=== PATIENT | male | born 1965 | race Caucasian/White ===

== ENCOUNTER 2017-12-22 18:04 | Inpatient (IN) ==
--- NOTE | 2017-12-22 19:19 | Emergency Department Note ---
Disposition Clinical Impression: Peripheral arterial disease Foot ulcer, left Qualifiers: Non-pressure ulcer stage: unspecified non-pressure ulcer stage Qualified Code(s ): L97.529 - Non-pressure chronic ulcer of other part of left foot with unspecified severity Foot ulcer, right Qualifiers: Non-pressure ulcer stage: unspecified non-pressure ulcer stage Qualified Code(s ): L97.519 - Non-pressure chronic ulcer of other part of right foot with unspecified severity Disposition: Admitted As Inpatient Condition: Fair Referrals: Claude Lopez PAC [Primary Care Provider] - Forms: ED Satisfaction Letter Time of Disposition: 20:12 Extremity Problem HPI - General Chief complaint: ED Extremity Problem,Nontraumatic Stated complaint: "blood clots in my legs, rotting my feet" Time Seen by Provider: 12/22/17 19:10 Source: patient Mode of arrival: ambulatory Limitations: no limitations Nursing Notes Reviewed: Yes Vital Signs Reviewed: Yes - History of Present Illness HPI Narrative: Patient notes a recent diagnosis of peripheral arterial disease and gangrenous changes to his bilateral lower extremities. He was recently admitted to [facility] and had a vascular workup. He was referred to follow-up as an outpatient with wound care and to potentially go to [place] for vascular intervention. He denies new symptoms. He states he has a history of diabetes, hypertension, peripheral vascular disease, tobacco use. Pt Subjective Complaint: extremity pain, extremity swelling Pain Scale: 10 Quality: aching Improves with: nothing Worsens with: weight bearing, palpation Associated symptoms: Reports: denies other symptoms - Related Data Home Medications Medication Instructions Recorded Confirmed Atorvastatin Calcium [Lipitor] 80 mg PO HS 12/22/17 12/22/17 Dapagliflozin Propanediol [Farxiga] 5 mg PO DAILY 12/22/17 12/22/17 Furosemide [Lasix] 40 mg PO DAILY 12/22/17 12/22/17 Gabapentin [Neurontin] 800 mg PO TID 12/22/17 12/22/17 Insulin ASPART [Novolog Flexpen] 0 - 19 units SQ TIDWM 12/22/17 12/22/17 Insulin Glargine,Hum.rec.anlog 50 units SQ HS 12/22/17 12/22/17 [Lantus Solostar] Lisinopril [Zestril] 5 mg PO DAILY 12/22/17 12/22/17 Metoprolol Succinate [Toprol Xl] 50 mg PO DAILY 12/22/17 12/22/17 OxyCODONE/APAP 7.5/325 [Percocet 1 tab PO QID PRN 12/22/17 12/22/17 7.5/325 MG] clonazePAM [Klonopin] 1 mg PO TID PRN 12/22/17 12/22/17 Allergies Allergy/AdvReac Type Severity Reaction Status Date / Time hydrocodone AdvReac Itching Verified 12/22/17 20:27 pregabalin [From Lyrica] AdvReac Itching Verified 12/22/17 20:27 All systems ED: reviewed and negative except as stated. Constitutional: Reports: as per HPI Eyes: Reports: as per HPI ENT ED: Reports: as per HPI Cardiovascular: Reports: as per HPI Respiratory: Reports: as per HPI Gastrointestinal: Reports: as per HPI Genitourinary: Reports: as per HPI Musculoskeletal: Reports: other (Bilateral lower extremity pain) Integumentary: Reports: other (Bilateral lower extremity ulceration) Neurological: Reports: as per HPI Psychiatric: Reports: as per HPI Endocrine: Reports: as per HPI Hematological/Lymphatic: Reports: as per HPI Allergic/Immunologic: Reports: as per HPI Past Medical History - Past Medical History Source: patient Medical history: Reports: atrial fibrillation, CHF, diabetes, hyperlipidemia, hypertension, other Surgical history: Reports: other Psychiatric history: Reports: anxiety - Social History Smoking Status: Current every day smoker Smokeless Tobacco Status: No Alcohol use: Reports: occasionally Drug use: Reports: none, other Physical Exam - General Limitations: no limitations General appearance: alert - Head Head exam: atraumatic - Eye Eye exam: Present: normal appearance - ENT ENT exam: normal exam - Neck Neck exam: Present: normal inspection, full ROM - Chest Chest inspection: Present: normal inspection, symmetric chest wall rise - Respiratory Respiratory exam: Present: normal lung sounds bilaterally - Cardiovascular Cardiovascular exam: Present: regular rate, normal rhythm, normal heart sounds - Rectal Exam Rectal exam: Present: deferred - Expanded Lower Extremity Exam Upper leg exam: Present: normal inspection Knee exam: Present: normal inspection Lower leg exam: Present: normal inspection Ankle exam: Present: normal inspection Foot/toe exam: Present: other (Right foot swollen with hyperemia. Superficial ulceration which is dry and tenting overlying eschar over the lateral aspect of his foot. Similar ulceration to the posterior lateral aspect of the right heel. Both feet warm. Right foot with remote partial amputation) - Neurological Exam Neurological exam: Present: alert, oriented X3, CN II-XII intact - Psychiatric Psychiatric exam: Present: normal affect, normal mood - Skin Skin exam: Present: warm, dry Course Course Narrative: Patient presents with bilateral foot ulcerations. He has a recent diagnosis of peripheral arterial disease. I will attempt to obtain medical records from his most recent admission to [facility]. He will likely require admission for vascular surgery consultation and/or podiatry evaluation - Reevaluation(s) Reevaluation #1: Medical records from [place] obtained and reviewed. The patient is a 50-99% diameter stenosis of the proximal right deep femoral artery and right mid superficial femoral artery with severe occlusive disease and a right ankle brachial index of 0.48. He also has segmental occlusion of the left mid to distal left superficial femoral artery with moderate occlusive disease and an ankle-brachial index of 0.60. Reevaluation #2: Dr. Walker accepts admisison. Requests IV heparin - Consultations Consultation #1: Call placed to vascular surgery on-call. Case discussed with Dr. Yee who agrees to that with the patient consultation after admission Vital Signs Temperature 98 F 12/22/17 18:15 Pulse Rate 95 12/22/17 18:15 Respiratory Rate 20 12/22/17 18:15 Blood Pressure 105/55 12/22/17 18:15 O2 Sat by Pulse Oximetry 96 12/22/17 18:15 Temperature 98 F 12/22/17 18:15 Pulse Rate 95 12/22/17 18:15 Respiratory Rate 20 12/22/17 18:15 Blood Pressure 105/55 12/22/17 18:15 O2 Sat by Pulse Oximetry 96 12/22/17 18:15 Oxygen Delivery Oxygen Delivery Room Air Extremity Problem, Nontraumati - Medical Records Medical records reviewed: Yes I reviewed the patient's medical records. - Lab Data Lab results reviewed: Yes I reviewed the patient's lab results. Result diagrams: 12/22/17 19:19 12/22/17 19:19 Lab Results 12/22/17 12/22/17 12/22/17 Range/Units 19:19 19:19 19:19 WBC 12.1 H (4.3-11.1) K/mcL RBC 3.86 L (4.19-5.50) M/mcL Hgb 11.9 L (12.9-16.9) g/dL Hct 35.5 L (37.5-50.1) % MCV 92.0 (83.0-100.0) fL MCH 30.8 (28.0-33.3) pg MCHC 33.5 (31.6-35.5) g/dL RDW 13.2 (11.5-14.5) % Plt Count 248 (140-400) K/mcL MPV 10.9 (9.4-12.4) fL Immature Gran % 0.6 (0-4) % Seg Neutrophils % 75.9 % Lymphocytes % 14.7 % Monocytes % 7.0 % Eosinophils % 1.5 % Basophils % 0.3 % Neutrophils # 9.2 H (1.6-8.9) K/mcL Lymphocytes # 1.8 (0.6-4.6) K/mcL Monocytes # 0.9 (0.0-1.3) K/mcL Eosinophils # 0.2 (0.0-0.6) K/mcL Basophils # 0.0 (0.0-0.2) K/mcL PT 11.7 (9.4-12.1) Seconds INR 1.1 APTT 37.1 H (26.0-36.0) Seconds Sodium 136 (136-145) mEq/L Potassium 3.9 (3.5-5.1) mEq/L Chloride 97 L (98-107) mEq/L Carbon Dioxide 29 (23-29) mEq/L BUN 23 H (6-20) mg/dL Creatinine 0.88 (0.70-1.30) mg/dL Est GFR ( Amer) > 60 (> 60) Est GFR (Non-Af Amer) > 60 (> 60) BUN/Creatinine Ratio 26 (6-26) Glucose 223 H (70-105) mg/dL Calculated Osmolality 293 (280-300) Calcium 9.1 (8.6-10.3) mg/dL Total Bilirubin 0.3 (0.3-1.0) mg/dL AST 15 (13-39) Units/L ALT 14 (7-52) Units/L Alkaline Phosphatase 153 H (34-104) Units/L Serum Total Protein 7.2 (6.4-8.9) g/dL Albumin 4.1 (3.5-5.7) g/dL Globulin 3.1 (2.4-3.5) g/dL Albumin/Globulin Ratio 1.3 (1.1-2.2) Antibody Screen 12/22/17 Range/Units 19:19 WBC (4.3-11.1) K/mcL RBC (4.19-5.50) M/mcL Hgb (12.9-16.9) g/dL Hct (37.5-50.1) % MCV (83.0-100.0) fL MCH (28.0-33.3) pg MCHC (31.6-35.5) g/dL RDW (11.5-14.5) % Plt Count (140-400) K/mcL MPV (9.4-12.4) fL Immature Gran % (0-4) % Seg Neutrophils % % Lymphocytes % % Monocytes % % Eosinophils % % Basophils % % Neutrophils # (1.6-8.9) K/mcL Lymphocytes # (0.6-4.6) K/mcL Monocytes # (0.0-1.3) K/mcL Eosinophils # (0.0-0.6) K/mcL Basophils # (0.0-0.2) K/mcL PT (9.4-12.1) Seconds INR APTT (26.0-36.0) Seconds Sodium (136-145) mEq/L Potassium (3.5-5.1) mEq/L Chloride (98-107) mEq/L Carbon Dioxide (23-29) mEq/L BUN (6-20) mg/dL Creatinine (0.70-1.30) mg/dL Est GFR ( Amer) (> 60) Est GFR (Non-Af Amer) (> 60) BUN/Creatinine Ratio (6-26) Glucose (70-105) mg/dL Calculated Osmolality (280-300) Calcium (8.6-10.3) mg/dL Total Bilirubin (0.3-1.0) mg/dL AST (13-39) Units/L ALT (7-52) Units/L Alkaline Phosphatase (34-104) Units/L Serum Total Protein (6.4-8.9) g/dL Albumin (3.5-5.7) g/dL Globulin (2.4-3.5) g/dL Albumin/Globulin Ratio (1.1-2.2) Antibody Screen NEGATIVE - Radiology Data Radiology results reviewed: Yes I reviewed the patient's radiology results. - EKG Data EKG attestation: Yes I reviewed and interpreted this EKG. EKG results narrative: History rhythm rate 87 by mouth 147 QRS 124 QT/QTC 385/429 Critical Care Time Critical Care Time: Yes Total Critical Care Time: 30 Attestation: The high probability of a clinically significant, sudden or life threatening deterioration of the [] system(s) required my full and direct attention, intervention and personal management. The aggregate critical care time was [] minutes. This time is in addition to time spent performing reported procedures but includes the following: [] Data Review and interpretation [] Patient assessment and monitoring of vital signs [] Documentation [] Medication orders and management
[2017-12-22 20:04] LABS: Basophils % 0.3 %; Eosinophils # 0.2 K/mcL (0.0-0.6); Eosinophils % 1.5 %; Hematocrit 35.5 % (37.5-50.1); Hemoglobin 11.9 g/dL (12.9-16.9); Immature Granulocytes % 0.6 % (0-4); Lymphocytes # 1.8 K/mcL (0.6-4.6); Lymphocytes % 14.7 %; Mean Corpuscular HGB Conc 33.5 g/dL (31.6-35.5); Mean Corpuscular Hemoglobin 30.8 pg (28.0-33.3); Mean Platelet Volume 10.9 fL (9.4-12.4); Monocytes # 0.9 K/mcL (0.0-1.3); Neutrophils # 9.2 K/mcL (1.6-8.9); Platelet Count 248 K/mcL (140-400); Red Blood Count 3.86 M/mcL (4.19-5.50); Red Cell Distribution Width 13.2 % (11.5-14.5); Segmented Neutrophils % 75.9 %
[2017-12-22 20:13] LABS: INR 1.1; Prothrombin Time 11.7 Seconds (9.4-12.1)
[2017-12-22 20:14] LABS: Alanine Aminotransferase 14 Units/L (7-52); Albumin 4.1 g/dL (3.5-5.7); Albumin/Globulin Ratio 1.3 (1.1-2.2); Alkaline Phosphatase 153 Units/L (34-104); Aspartate Amino Transferase 15 Units/L (13-39); BUN/Creatinine Ratio 26 (6-26); Bilirubin,Total 0.3 mg/dL (0.3-1.0); Blood Urea Nitrogen 23 mg/dL (6-20); Calcium 9.1 mg/dL (8.6-10.3); Carbon Dioxide 29 mEq/L (23-29); Chloride 97 mEq/L (98-107); Globulin 3.1 g/dL (2.4-3.5); Glucose 223 mg/dL (70-105); Osmolality,Calculated 293 (280-300); Potassium 3.9 mEq/L (3.5-5.1); Sodium 136 mEq/L (136-145); Total Protein 7.2 g/dL (6.4-8.9); eGFR For African Americans > 60 (> 60); eGFR For Non-African Americans > 60 (> 60)
[2017-12-22 20:15] LABS: Activated Partial Thrombo Time 37.1 Seconds (26.0-36.0)
[2017-12-22] MEDS ORDERED: Naloxone 0.4 MG/ML INJ IVP PRN (20:36)
[2017-12-22] MEDS ORDERED: *HR* Heparin 5,000 UNIT/ML VIAL IVP ONE (20:36)
[2017-12-22] MEDS ORDERED: *HR* Heparin 5,000 UNIT/ML VIAL IVP PRN ×2 (20:36)
[2017-12-22] MEDS ORDERED: Acetaminophen 325 MG TABLET PO PRN (20:36)
[2017-12-22] MEDS ORDERED: D5% in Water 1,000 ML IVC PRN (20:37)
[2017-12-22] MEDS ORDERED: *HR* Dextrose 50 % in Water (Syg) 50 ML SYRINGE IVP PRN (20:37)
[2017-12-22] MEDS ORDERED: Dextrose Gel 15 GM/37.5 ML TUBE PO PRN ×2 (20:37)
--- NOTE | 2017-12-22 20:43 | Internal Med History&Physical ---
Date of Encounter: 12/22/17 Time of Encounter: 20:38 Internal Medicine - H&P: HPI Chief complaint: Lower extremity pain Admitted From: Emergency Dept Plans for Post Hospital Care: Home History of present illness: Mr. Taylor is a 51 year old male with history of diabetes, hypertension, hyperlipidemia, tobacco abuse, A. fib not on anticoagulation and he is not aware , pacemaker/ICD which she tells me was placed because he "has cystic fibrosis and half of his heart has not grew", he follows up with cardiology, who presented to the ED with bilateral lower extremity gangrenous changes in pain. The patient apparently recently was admitted [facility] and discharged after he had a vascular workup. They could not provide vascular services and recommended that he follows up in the outpatient setting. He ended up in our facility. His records were sent to the ED which showed that he has 50-99% diameter stenosis of the proximal right deep femoral artery and right mid superficial femoral artery with severe occlusive disease and a right ankle brachial index of 0.48. He also has segmental occlusion of the left mid to distal left superficial femoral artery with moderate occlusive disease and ankle brachial index of 0.60. Vascular consult in the ED and recommended admission and that they will see him. They did not really make specific recommendations regarding heparinization of the patient. I have asked that he start a heparin drip. No fever, chills, nausea, vomiting, chest pain, shortness of breath, abdominal pain, diarrhea, constipation, urinary symptoms, or neurological symptoms. His workup in the ED showed leukocytosis of 12.1. Hemoglobin 11.9. A CMP was only remarkable for glucose of 223 and looking for status post mild elevated on 153 Past Med Surg Social Fam HX - Past Medical History Medical history: atrial fibrillation, CHF, diabetes, hyperlipidemia, hypertension, other Additional medical history: cystic fibrosis Psychiatric history: anxiety - Past Surgical History Surgical History: other Additional surgical history: right toes amputation - Social History Smoking Status: Current every day smoker Smokeless Tobacco Status: No Alcohol use: occasionally Drug use: none, other - Family History Mother Living Status: Hx Family Cardiac Disorders: Yes Hx Family Respiratory Disorders: Yes Hx Family Cancer: Yes Hx Family GI Disorders: No Hx Family Endocrine Disorder: Yes (Diabetes) Hx Family Neuromuscular Disorders: No Hx Family Neurologic Disorders: No Hx Family HEENT Disorders: No Hx Family Autoimmune Disorders: No Internal Medicine - H&P: Meds Atorvastatin Calcium [Lipitor] 80 mg PO HS 12/22/17 [History] Dapagliflozin Propanediol [Farxiga] 5 mg PO DAILY 12/22/17 [History] Furosemide [Lasix] 40 mg PO DAILY 12/22/17 [History] Gabapentin [Neurontin] 800 mg PO TID 12/22/17 [History] Insulin ASPART [Novolog Flexpen] 0 - 19 units SQ TIDWM 12/22/17 [History] Insulin Glargine,Hum.rec.anlog [Lantus Solostar] 50 units SQ HS 12/22/17 [ History] Lisinopril [Zestril] 5 mg PO DAILY 12/22/17 [History] Metoprolol Succinate [Toprol Xl] 50 mg PO DAILY 12/22/17 [History] OxyCODONE/APAP 7.5/325 [Percocet 7.5/325 MG] 1 tab PO QID PRN 12/22/17 [History] clonazePAM [Klonopin] 1 mg PO TID PRN 12/22/17 [History] 3 Allergy/AdvReac Type Severity Reaction Status Date / Time hydrocodone AdvReac Itching Verified 12/22/17 20:27 pregabalin [From Lyrica] AdvReac Itching Verified 12/22/17 20:27 All Systems PM: A 10-system review of systems was performed and is negative for pertinent findings except as documented above in the HPI. Review of systems: All systems reviewed are negative except as mentioned above - Constitutional Vitals: Temp Pulse Resp BP Pulse Ox 98 F 95 20 105/55 96 12/22/17 18:15 12/22/17 18:15 12/22/17 18:15 12/22/17 18:15 12/22/17 18:15 Exam: GEN: NAD HEENT: AT, NC, No cyanosis, oral mucosa is moist, No JVD Lymphatics: No lymphadenoapthy Eyes: Extrocular muscles intact, anicteric CVS:RRR. S1, S2, No m/r/g RESP: CTAB ABD: Soft, NT, ND, +BS EXT: No edema, right foot is following with erythema and superficial ulceration. He has an eschar on the lateral aspect of the foot. He also has similar findings on the posterior lateral aspect of the right heel. Right foot with partial amputation noted. NEURO: Nonfocal, CN II-XII intact, No focal motor or sensory deficits Psych: Cooperative, Not anxious or depressed Internal Med - H&P Results - Labs CBC & Chem 7: 12/22/17 19:19 12/22/17 19:19 Labs: Short CBC 12/22/17 Range/Units 19:19 WBC 12.1 H (4.3-11.1) K/mcL Hgb 11.9 L (12.9-16.9) g/dL Hct 35.5 L (37.5-50.1) % Plt Count 248 (140-400) K/mcL Neutrophils # 9.2 H (1.6-8.9) K/mcL BMP 12/22/17 19:19 Sodium 136 Potassium 3.9 Chloride 97 L Carbon Dioxide 29 BUN 23 H Creatinine 0.88 Glucose 223 H Calcium 9.1 Liver Function 12/22/17 Range/Units 19:19 Total Bilirubin 0.3 (0.3-1.0) mg/dL AST 15 (13-39) Units/L ALT 14 (7-52) Units/L Alkaline Phosphatase 153 H (34-104) Units/L Albumin 4.1 (3.5-5.7) g/dL - Impressions ITS Impressions Chest X-Ray 12/22/17 18:19 IMPRESSION: No acute process. D/ / Sharlene Cheng MD / Sharlene Cheng MD Interpreting Provider: Sharlene Cheng MD Foot X-Ray 12/22/17 19:20 IMPRESSION: 1. Plantar lateral ulceration of the forefoot at the level of the fifth MTP joint. 2. No radiographic evidence of osteomyelitis though given the adjacent soft tissue changes this cannot be excluded. D/ / 12/22/2017 20:32:25 Jj Rico MD / km Interpreting Provider: Jj Rico MD Foot X-Ray 12/22/17 19:20 IMPRESSION: 1. No acute osseous findings are identified. D/ / 12/22/2017 20:30:59 Alexandre Liao MD / km Interpreting Provider: Alexandre Liao MD - Assessment and plan (1) Ischemic foot ulcer due to atherosclerosis of [place] artery of limb Current Visit: Yes Status: Acute Assessment and plan: Ulcerations of her carotic with malodor. We will start patient on IV Vanco and Zosyn. Check blood cultures and lactic acid. (2) Peripheral arterial disease Current Visit: Yes Status: Acute Assessment and plan: Vascular is consulted. Check A1c and lipid panel. We will start patient on heparin drip. (3) Diabetes Current Visit: No Status: Acute Assessment and plan: We will place patient on his basal insulin and insulin scale. Check A1c. Qualifiers: Diabetes mellitus type: type 2 Diabetes mellitus group home insulin use: with terminal operator use Diabetes mellitus complication status: with circulatory complication Diabetes mellitus complication detail: with peripheral angiopathy with gangrene Qualified Code(s): E11.52 - Type 2 diabetes mellitus with diabetic peripheral angiopathy with gangrene (4) Hypertension Current Visit: Yes Status: Acute Assessment and plan: Hold antihypertensives for now as the patient is blood pressure is borderline for now. Qualifiers: Hypertension type: essential hypertension Qualified Code(s): I10 - Essential (primary) hypertension (5) Afib Current Visit: Yes Status: Acute Assessment and plan: Patient currently is on aspirin and beta anastacia. He is not on anticoagulation for unknown reason. He is on heparin drip. He the way for his peripheral artery disease Qualifiers: Atrial fibrillation type: paroxysmal Qualified Code(s): I48.0 - Paroxysmal atrial fibrillation (6) Tobacco abuse Current Visit: No Status: Acute Assessment and plan: Nicotine patch (7) DVT prophylaxis Current Visit: No Status: Acute Assessment and plan: Patient has been started on heparin drip - Time Spent With Patient Total time spent is greater than 50% in coordination of care (as documented) at patient's floor/unit and/or counseling patient:
[2017-12-22] MEDS: Heparin 25,000 UNIT/500 ML D5W 25,000 UNIT/500 ML BAG IVC SCH (21:20)
[2017-12-23] MEDS: Insulin DETEMIR 100 UNIT/ML X5UNITS SQ SCH ×2 (00:01→20:06)
[2017-12-23] MEDS: Insulin LISPRO 300 UNITS/3 ML VIAL SQ SCH ×5 (00:02→20:10)
[2017-12-23] MEDS: Nicotine 21 MG PATCH.TD24 TD SCH ×2 (00:06→08:24)
[2017-12-23] MEDS: Piperacillin/Tazobactam 3.375 GM in 0.9 % Sodium Chloride Mini Bag 100 ML IVPB SCH ×3 (00:52→15:50)
[2017-12-23 03:41] LABS: Basophils % 0.2 %; Eosinophils # 0.2 K/mcL (0.0-0.6); Eosinophils % 1.9 %; Hematocrit 27.3 % (37.5-50.1); Hemoglobin 9.1 g/dL (12.9-16.9); Immature Granulocytes % 0.7 % (0-4); Lymphocytes # 1.8 K/mcL (0.6-4.6); Lymphocytes % 21.2 %; Mean Corpuscular HGB Conc 33.3 g/dL (31.6-35.5); Mean Corpuscular Hemoglobin 30.8 pg (28.0-33.3); Mean Corpuscular Volume 92.5 fL (83.0-100.0); Monocytes # 0.7 K/mcL (0.0-1.3); Monocytes % 8.6 %; Neutrophils # 5.6 K/mcL (1.6-8.9); Platelet Count 191 K/mcL (140-400); Red Blood Count 2.95 M/mcL (4.19-5.50); Segmented Neutrophils % 67.4 %
[2017-12-23 03:54] LABS: BUN/Creatinine Ratio 30 (6-26); Blood Urea Nitrogen 17 mg/dL (6-20); Calcium 6.9 mg/dL (8.6-10.3); Carbon Dioxide 22 mEq/L (23-29); Chloride 109 mEq/L (98-107); Chol/HDL Ratio 3.3 (0-4.9); Cholesterol 70 mg/dL (< 200); Glucose 177 mg/dL (70-105); HDL Cholesterol 21 mg/dL (40-59); LDL Cholesterol,Calculated 29 mg/dL (0-99); Magnesium 1.5 mg/dL (1.6-2.6); Osmolality,Calculated 296 (280-300); Sodium 140 mEq/L (136-145); Triglycerides 101 mg/dL (< 150); eGFR For African Americans > 60 (> 60); eGFR For Non-African Americans > 60 (> 60)
[2017-12-23 04:05] LABS: Thyroid Stimulating Hormone 1.266 mcIU/mL (0.340-5.600)
[2017-12-23] MEDS: *HR* OxyCODONE/APAP 7.5/325 TABLET PO PRN ×2 (04:19→15:23)
[2017-12-23 08:15] LABS: Estimated Average Glucose 255 mg/dl; Hemoglobin A1C 10.5 %
[2017-12-23] MEDS: Gabapentin 400 MG CAPSULE PO SCH ×4 (08:24→20:05)
[2017-12-23] MEDS: Furosemide 40 MG TABLET PO SCH (08:24)
--- NOTE | 2017-12-23 09:03 | Vascular/Endovasc Consult Note ---
Date of Encounter: 12/23/17 Time of Encounter: 09:01 Assessment and Plan (1) Diabetes Current Visit: No Status: Chronic Patient has chronic diabetes which appears to be poorly controlled. Qualifiers: Diabetes mellitus type: type 2 Diabetes mellitus intermediate insulin use: with intermediate use Diabetes mellitus complication status: with circulatory complication Diabetes mellitus complication detail: with peripheral angiopathy with gangrene Qualified Code(s): E11.52 - Type 2 diabetes mellitus with diabetic peripheral angiopathy with gangrene (2) Ischemic foot ulcer due to atherosclerosis of [place] artery of limb Current Visit: Yes Status: Chronic The patient has long-standing lower extremity vascular occlusive disease. Ankle brachial indexes proximally 0.6 bilaterally. Patient has full-thickness ulcerations of both feet. It is worse on the left side than on the right. I recommended that the patient undergo angiography and possible endovascular intervention. Patient is worse he may require bilateral interventions but the focus will be primarily on the left lower extremity at this time. My staff will make arrangements for the angiogram in the near future for either or Thursday of this week. The procedure was explained to the patient. All questions were answered. Patient agrees to proceed as recommended. - History of Present Illness Consult date: 12/23/17 Consult reason: Bilateral foot wounds and lower extremity ischemia Chief complaint: Bilateral foot wounds History of present illness: Mr. Taylor is a 51 year old male Who is seen on 3 . 's morning. He has rather complicated history. He has a known history of lower extremity vascular disease. He is status post a right transmetatarsal amputation by Dr. Palomino in the past. Somehow he had been admitted to [facility] via their wound clinic. He was going to be referred to [place] for further treatment. Apparently the patient left AMA and then came to the emergency room at [facility]. He then was admitted last night. The patient has ulcerations on the lateral aspect of his left foot and on the heel area of his right foot. It is unclear what his diabetic control has been but my impression is that it is poor. He has had noninvasive studies which show an ankle-brachial index of proximally 0.6 bilaterally. Because of the persistence of his wounds and his multiple risk factors vascular surgery was asked to see the patient. Past Med Surg Social Fam HX - Past Medical History Medical history: atrial fibrillation, CHF, diabetes, hyperlipidemia, hypertension, other Additional medical history: cystic fibrosis Psychiatric history: anxiety - Past Surgical History Surgical History: other (Right transmetatarsal amputation) Additional surgical history: right toes amputation - Social History Smoking Status: Current every day smoker Smokeless Tobacco Status: No Alcohol use: occasionally Drug use: none, other - Family History Mother Living Status: Hx Family Cardiac Disorders: Yes Hx Family Respiratory Disorders: Yes Hx Family Cancer: Yes Hx Family GI Disorders: No Hx Family Endocrine Disorder: Yes (Diabetes) Hx Family Neuromuscular Disorders: No Hx Family Neurologic Disorders: No Hx Family HEENT Disorders: No Hx Family Autoimmune Disorders: No Medications and Allergies Atorvastatin Calcium [Lipitor] 80 mg PO HS 12/22/17 [History] Dapagliflozin Propanediol [Farxiga] 5 mg PO DAILY 12/22/17 [History] Furosemide [Lasix] 40 mg PO DAILY 12/22/17 [History] Gabapentin [Neurontin] 800 mg PO TID 12/22/17 [History] Insulin ASPART [Novolog Flexpen] 0 - 19 units SQ TIDWM 12/22/17 [History] Insulin Glargine,Hum.rec.anlog [Lantus Solostar] 50 units SQ HS 12/22/17 [ History] Lisinopril [Zestril] 5 mg PO DAILY 12/22/17 [History] Metoprolol Succinate [Toprol Xl] 50 mg PO DAILY 12/22/17 [History] OxyCODONE/APAP 7.5/325 [Percocet 7.5/325 MG] 1 tab PO QID PRN 12/22/17 [History] clonazePAM [Klonopin] 1 mg PO TID PRN 12/22/17 [History] 3 Allergy/AdvReac Type Severity Reaction Status Date / Time hydrocodone AdvReac Itching Verified 12/22/17 20:27 pregabalin [From Lyrica] AdvReac Itching Verified 12/22/17 20:27 All Systems Review: The remainder of the systems were reviewed and are negative Exam Vital Signs, Last 4 Hours Temp Pulse Resp BP Pulse Ox 12/23/17 07:09 99.0 F 69 16 94/56 95 General: Present: Conversant, No Apparent Distress, Well developed, Well nourished HEENT: Present: Atraumatic, Normocephaly Neck: Absent: JVD, Lymphadenopathy, Left Carotid bruit, Right Carotid bruit, Midline deformity, Tracheal deviation Cardiac: Present: Reg Rate and Rhythm, Normal S1 and S2 Lungs: Present: Normal Breath Sounds Neuro: Present: Alert and responsive, No focal deficits noted, Cranial nerves grossly intact Abdomen: Present: Soft, Non-tender. Absent: Masses Vascular: Present: Pulse, absent (The patient has no palpable popliteal or pedal pulse on either side.) Skin: Present: Wound/ulcer(s) (The patient has eschar and ulcer formation on the lateral aspect of the left foot near the head of the fifth metatarsal. Patient has an ulceration on the medial aspect of the right heel. Both these areas have an odor to them. There is no gross pus or fluid drainage. There are no blood formations in the region of these wounds.) Consult Discharge Plan - Plan Referrals: Claude Lopez, PAC [Primary Care Provider] -
--- NOTE | 2017-12-23 17:28 | Internal Med Progress Note ---
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 Continue IV Vanco and Zosyn. Follow-up blood cultures and lactic acid. Continue heparin drip. Hemoglobin low today possibly hemodilution, recheck H&H now. Vascular Surg to do angiogram tomorrow. (2) Diabetes Current Visit: No Status: Chronic Assessment and plan: We will place patient on his basal insulin and insulin scale. Check A1c. 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 Check A1c and lipid panel. We will start patient on heparin drip. (6) Afib Current Visit: Yes Status: Acute Assessment and plan: Patient currently is on aspirin and beta anastacia, metoprolol. He is not on anticoagulation for unknown reason. He is on heparin drip. Qualifiers: Atrial fibrillation type: paroxysmal Qualified Code(s): I48.0 - Paroxysmal atrial fibrillation (7) Hypertension Current Visit: Yes Status: Acute Assessment and plan: Hold antihypertensives for now as the patient is blood pressure is borderline for now. Qualifiers: Hypertension type: essential hypertension Qualified Code(s): I10 - Essential (primary) hypertension - Time Spent With Patient Total time spent is greater than 50% in coordination of care (as documented) at patient's floor/unit and/or counseling patient: - Subjective Interval history: No complaints no acute events. - Constitutional Vitals: Temp Pulse Resp BP Pulse Ox 99.1 F 80 16 135/78 95 12/23/17 15:05 12/23/17 15:05 12/23/17 15:05 12/23/17 15:05 12/23/17 15:05 Exam: - Head Head exam: Present: atraumatic, normal inspection - Eye Eye exam: Present: EOMI, normal appearance, PERRL. Absent: scleral icterus Pupils: Present: normal accommodation - ENT ENT exam: Present: mucous membranes dry, normal exam, normal oropharynx - Neck Neck exam general surgery: Present: full ROM, supple. Absent: lymphadenopathy, tenderness, nuchal rigidity, thyromegaly - Expanded Neck Exam Neck exam: Absent: carotid bruit - Respiratory Respiratory exam: Present: CTAB. Absent: chest wall tenderness, rales, respiratory distress, rhonchi, wheezes - Cardiovascular Cardiovascular exam: Present: bradycardia (HR 48 on auscultation), +S1, +S2. Absent: diastolic murmur, systolic murmur - GI/Abdominal GI/Abdominal exam: Present: normal bowel sounds, soft. Absent: hepatomegaly, mass, splenomegaly, tenderness - Extremities Exam Extremities exam: Present: full ROM, normal capillary refill, warm, radial pulses palpable and symmetrical. Absent: calf tenderness, pedal edema, tenderness Right foot s/p partial foot amputation no toes. Lateral ulceration Left foot lateral ulceration no edema, no erythema - Back Exam Back exam: Present: normal inspection. Absent: CVA tenderness (L), CVA tenderness (R) - Neurological Exam Neurological exam: Present: alert, CN II-XII intact, oriented X3, no focal deficits - Psychiatric Psychiatric exam: Present: normal affect, normal mood - Skin Skin exam: Present: dry, warm. Absent: rash Internal Medicine: Result - Labs CBC & Chem 7: 12/23/17 02:52 12/23/17 02:52 Labs: Short CBC 12/23/17 Range/Units 02:52 WBC 8.4 (4.3-11.1) K/mcL Hgb 9.1 L D (12.9-16.9) g/dL Hct 27.3 L (37.5-50.1) % Plt Count 191 (140-400) K/mcL Neutrophils # 5.6 (1.6-8.9) K/mcL BMP 12/23/17 02:52 Sodium 140 Potassium 3.0 L Chloride 109 H Carbon Dioxide 22 L BUN 17 Creatinine 0.56 L Glucose 177 H Calcium 6.9 L - ABG Interpretation ABG results: PT/INR, D-dimer PT 11.7 Seconds (9.4-12.1) 12/22/17 19:19 Consult Discharge Plan - Plan Referrals: Claude Lopez, PAC [Primary Care Provider] -
[2017-12-23 17:40] LABS: Hematocrit 34.4 % (37.5-50.1)
[2017-12-23 17:41] LABS: Hemoglobin 11.4 g/dL (12.9-16.9)
[2017-12-23] MEDS: Heparin 25,000 UNIT/500 ML D5W 25,000 UNIT/500 ML BAG IVC SCH (17:45)
--- NOTE | 2017-12-23 19:36 | Electrocardiograph Report ---
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
[2017-12-23] MEDS: Sennosides/Docusate Sodium TABLET PO PRN (19:44)
[2017-12-23] MEDS: clonazePAM 1 MG TABLET PO PRN (19:44)
[2017-12-24] MEDS: Piperacillin/Tazobactam 3.375 GM in 0.9 % Sodium Chloride Mini Bag 100 ML IVPB SCH ×4 (02:15→23:35)
[2017-12-24 05:24] LABS: Basophils % 0.3 %; Eosinophils # 0.2 K/mcL (0.0-0.6); Eosinophils % 2.1 %; Hematocrit 31.5 % (37.5-50.1); Hemoglobin 10.5 g/dL (12.9-16.9); Immature Granulocytes % 0.8 % (0-4); Mean Corpuscular HGB Conc 33.3 g/dL (31.6-35.5); Mean Corpuscular Hemoglobin 30.5 pg (28.0-33.3); Mean Corpuscular Volume 91.6 fL (83.0-100.0); Mean Platelet Volume 10.3 fL (9.4-12.4); Monocytes # 0.8 K/mcL (0.0-1.3); Monocytes % 7.9 %; Neutrophils # 7.2 K/mcL (1.6-8.9); Platelet Count 234 K/mcL (140-400); Red Blood Count 3.44 M/mcL (4.19-5.50); Red Cell Distribution Width 12.9 % (11.5-14.5); Segmented Neutrophils % 69.9 %
[2017-12-24 05:44] LABS: BUN/Creatinine Ratio 22 (6-26); Blood Urea Nitrogen 16 mg/dL (6-20); Calcium 8.8 mg/dL (8.6-10.3); Carbon Dioxide 27 mEq/L (23-29); Chloride 105 mEq/L (98-107); Glucose 171 mg/dL (70-105); Osmolality,Calculated 289 (280-300); Potassium 4.4 mEq/L (3.5-5.1); Sodium 137 mEq/L (136-145); eGFR For African Americans > 60 (> 60); eGFR For Non-African Americans > 60 (> 60)
[2017-12-24] MEDS: *HR* OxyCODONE/APAP 7.5/325 TABLET PO PRN (07:53)
[2017-12-24] MEDS: Furosemide 40 MG TABLET PO SCH (07:54)
[2017-12-24] MEDS: Gabapentin 400 MG CAPSULE PO SCH ×3 (07:54→23:34)
[2017-12-24] MEDS: Metoprolol XL (24 HR) Succ 50 MG TAB.ER.24H PO SCH (07:54)
[2017-12-24] MEDS: Insulin LISPRO 300 UNITS/3 ML VIAL SQ SCH ×4 (07:55→23:37)
[2017-12-24] MEDS: Nicotine 21 MG PATCH.TD24 TD SCH (09:35)
[2017-12-24] MEDS ORDERED: *HR* Heparin 10,000 UNIT/10 ML VIAL ONE (11:52)
[2017-12-24] MEDS ORDERED: 0.9 % Sodium Chloride 2,000 ML ONE (11:53)
[2017-12-24] MEDS ORDERED: Heparin 1,000 UNITS/500 mL 500 ML ONE (11:53)
[2017-12-24] MEDS ORDERED: Isovue-300 200 mL Infus..BTL IV ONE (11:53)
--- NOTE | 2017-12-24 11:59 | Pre-Sedation Evaluation ---
Pre-sedation evaluation - Pre-sedation checklist Date of procedure: 12/24/17 Procedure: Angiogram Recent Vitals: Last Vital Signs Temp 97.6 F 12/24/17 11:09 Pulse 64 12/24/17 11:09 Resp 18 12/24/17 11:09 BP 116/49 12/24/17 11:09 Pulse Ox 97 12/24/17 11:09 H&P (including ROS) documented in medical record: Yes Previous reaction to sedatives/anesthetics: Yes; explain in comment Dietary Status: NPO after Midnight Dentition: dentures removed ASA Classification *see protocol: CLASS III-Severe systemic disease Plan of Care: Pt appropriate candidate for procedure/moderate/conscious sedation , Risks/benefits of procedure/sedation discussed w/ patient/family
--- NOTE | 2017-12-24 12:01 | Podiatry Consult Note ---
Date of Encounter: 12/24/17 Time of Encounter: 11:00 Assessment and Plan (1) Foot ulcer, left Current visit: Yes Status: Acute Necrotic ulceration to the lateral aspect of the fifth metatarsal head, left foot, malodorous. Per Vascular note : Noninvasive studies show an ankle-brachial index of proximally 0.6 bilaterally. Plan: Scheduled for an angiogram today with Dr. Trammell. Will follow up with patient once angiogram is completed. Will order wound care. Cleanse feet daily with mild soap and water, pat dry, apply betadine to ulcerations of both feet with dry sterile 4x4 gauze and kerlix daily. Continue to follow patient closely. Qualifiers: Non-pressure ulcer stage: unspecified non-pressure ulcer stage Qualified Code(s): L97.529 - Non-pressure chronic ulcer of other part of left foot with unspecified severity (2) Foot ulcer, right Current visit: Yes Status: Acute Necrotic ulceration to the lateral aspect of the right heel, malodorous, no erythema. Per Vascular note : Noninvasive studies show an ankle-brachial index of proximally 0.6 bilaterally. Plan: Scheduled for an angiogram today with Dr. Trammell. Will follow up with patient once angiogram is completed. Will order wound care. Cleanse feet daily with mild soap and water, pat dry, apply betadine to ulcerations of both feet with dry sterile 4x4 gauze and kerlix daily. Continue to follow patient closely. 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 Taylor is a 51 year old male admitted to [facility] for gangrenous changed in ulcerations to both feet. Patient has a medical history significant for diabetes mellitus, hypertension, hyperlipidemia, atrial fibrillation, pacemaker/ ICD. Patient has a surgical history significant for a transmetatarsal amputation of the right foot with adjacent tissue transfer with flap advancement medially on 02/28/[address] Palomino. 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 Patient was treated with 6 weeks of IV antibiotics in February of 2016. Patient states two months ago he had a blister on the lateral aspect of his left foot and he states he opened it up himself. Patient states his Reticle Printer referred him to the wound care clinic at [facility]. Patient states he has had home health for dressing changes on his feet. Patient states he was admitted to [facility] last week and while he was there the ulcers on his feet turned black. Spouse states [facility] did not have anyone to work on his feet and they wanted to refer him to [facility]. After reviewing records patient received a Vascular workup while at [facility] and was discharged and suppose to follow up as an outpatient. Patient presented to the Emergency Department two days ago with increased pain to both feet and concerns of odor from ulcerations. Patient was evaluated by Dr. Trammell yesterday and is scheduled for an angiogram today. Patient states he currently smokes two packs of cigarettes a day and states he has smoked for years. No c/o fever, chills, cp , sob or flu like symptoms. Past Med Surg Social Fam HX - Past Medical History Medical history: atrial fibrillation, CHF, diabetes, hyperlipidemia, hypertension, other Additional medical history: cystic fibrosis Psychiatric history: anxiety - Past Surgical History Surgical History: other (Right transmetatarsal amputation) Additional surgical history: right toes amputation - Social History Smoking Status: Current every day smoker Smokeless Tobacco Status: No Alcohol use: occasionally Drug use: none, other - Family History Mother Living Status: Hx Family Cardiac Disorders: Yes Hx Family Respiratory Disorders: Yes Hx Family Cancer: Yes Hx Family GI Disorders: No Hx Family Endocrine Disorder: Yes (Diabetes) Hx Family Neuromuscular Disorders: No Hx Family Neurologic Disorders: No Hx Family HEENT Disorders: No Hx Family Autoimmune Disorders: No Medications and Allergies Atorvastatin Calcium [Lipitor] 80 mg PO HS 12/22/17 [History] Dapagliflozin Propanediol [Farxiga] 5 mg PO DAILY 12/22/17 [History] Furosemide [Lasix] 40 mg PO DAILY 12/22/17 [History] Gabapentin [Neurontin] 800 mg PO TID 12/22/17 [History] Insulin ASPART [Novolog Flexpen] 0 - 19 units SQ TIDWM 12/22/17 [History] Insulin Glargine,Hum.rec.anlog [Lantus Solostar] 50 units SQ HS 12/22/17 [ History] Lisinopril [Zestril] 5 mg PO DAILY 12/22/17 [History] Metoprolol Succinate [Toprol Xl] 50 mg PO DAILY 12/22/17 [History] OxyCODONE/APAP 7.5/325 [Percocet 7.5/325 MG] 1 tab PO QID PRN 12/22/17 [History] clonazePAM [Klonopin] 1 mg PO TID PRN 12/22/17 [History] 3 Allergy/AdvReac Type Severity Reaction Status Date / Time hydrocodone AdvReac Itching Verified 12/22/17 20:27 pregabalin [From Lyrica] AdvReac Itching Verified 12/22/17 20:27 - Constitutional Additional comments: Denies fever, denies chills, denies cp. Admits to ucler, Admits to joint pain. Physical Exam - Constitutional Vitals: Temp Pulse Resp BP Pulse Ox 97.6 F 64 18 116/49 97 12/24/17 11:09 12/24/17 11:09 12/24/17 11:09 12/24/17 11:09 12/24/17 11:09 Exam: General appearance: alert awake oriented X 3. Calm and pleasant, no acute distress.. Vascular: Pedal pulses DP/PT audible with doppler, No evidence of cyanosis, pallor or rubor, Edema graded at 1+/4, Skin Temperature cool to warm, No calf pain with manual compression. capillary refill time is immediate to digits of left foot. Neurologic: Sensation intact with light touch to both feet. Musculoskeletal: History of TMA right foot. Ulcer: Necrotic ulceration to the lateral right heel measuring 1.5 cm in length x 1.5 cm in width, eschar is dry and connected, malodorous, no periwound erythema, no fluctuance, no cellulitis, no warmth, no drainage. Necrotic ulceration to the lateral aspect of the left foot 5th metatarsal head measuring 2.5 cm in length x 4 cm in width, eschar is dry and connected, malodorous, no periwound erythema, no fluctuance, no cellulitis, no warmth, no drainage. Results - Labs Result Diagrams: 12/24/17 05:08 12/24/17 05:08 Labs: Abnormal lab results RBC 3.44 M/mcL (4.19-5.50) L 12/24/17 05:08 Hgb 10.5 g/dL (12.9-16.9) L 12/24/17 05:08 Hct 31.5 % (37.5-50.1) L 12/24/17 05:08 APTT 60.7 Seconds (26.0-36.0) H 12/24/17 05:12 Glucose 171 mg/dL (70-105) H 12/24/17 05:08 POC Glucose 111 mg/dL (70-99) H 12/24/17 11:10 Hemoglobin A1c 10.5 % (-5.6) H 12/23/17 02:52 Alkaline Phosphatase 153 Units/L (34-104) H 12/22/17 19:19 HDL Cholesterol 21 mg/dL (40-59) L 12/23/17 02:52 H & H 12/23/17 12/24/17 Range/Units 17:31 05:08 Hgb 11.4 L D 10.5 L (12.9-16.9) g/dL Hct 34.4 L 31.5 L (37.5-50.1) % All other labs normal. Consult Discharge Plan - Plan Referrals: Claude Lopez, PAC [Primary Care Provider] -
[2017-12-24] MEDS ORDERED: ISOVUE-370 200 ML INFUS..BTL IV ONE (12:03)
[2017-12-24] MEDS ORDERED: *HR* Midazolam HCl 2 MG/2 ML VIAL ONE ×2 (12:08→12:58)
[2017-12-24] MEDS ORDERED: *HR* FentaNYL (PF) 100 MCG/2 ML VIAL ONE ×2 (12:09→12:58)
--- NOTE | 2017-12-24 13:37 | Procedure Note ---
Date of procedure: 12/24/17 Pre-op diagnosis: Nonhealing ulcers of left foot/PAD Post-op diagnosis: same Procedure: Abdominal aortogram Aortogram with bilateral lower extremity runoff Selective left lower extremity angiogram Anesthesia: MAC Surgeon: Rajan Trammell Was there an timber management assistant present: No Estimated blood loss (cc): 0 Specimen: 0 Condition: stable Disposition: floor (Patient will need left femoral tibial bypass graft for limb salvage next week.)
--- NOTE | 2017-12-24 14:03 | Internal Med Progress Note ---
Date of Encounter: 12/24/17 Time of Encounter: 09:50 - Assessment and plan (1) Ischemic foot ulcer due to atherosclerosis of [place] artery of limb Current Visit: Yes Status: Chronic Assessment and plan: Continue IV antibiotics. On IV heparin for peripheral arterial disease. Podiatry and vascular surgery consulted for recommendations regarding foot ulcer. High risk for complications. (2) Peripheral arterial disease Current Visit: Yes Status: Acute Assessment and plan: On IV heparin. Vascular surgery consulted for possible angiogram/angioplasty and bypass. We will follow recommendations. (3) Diabetes Current Visit: Yes Status: Chronic Assessment and plan: Blood sugars are better controlled today. Patient has been nothing by mouth for planned procedure. We will continue to monitor blood sugars as he started on a diabetic diet later today. We will adjust insulin regimen accordingly. Qualifiers: Diabetes mellitus type: type 2 Diabetes mellitus correction insulin use: with correction use Diabetes mellitus complication status: with circulatory complication Diabetes mellitus complication detail: with peripheral angiopathy with gangrene Qualified Code(s): E11.52 - Type 2 diabetes mellitus with diabetic peripheral angiopathy with gangrene (4) Tobacco abuse Current Visit: No Status: Acute (5) Afib Current Visit: Yes Status: Chronic Assessment and plan: Rate controlled. Continue metoprolol Qualifiers: Atrial fibrillation type: paroxysmal Qualified Code(s): I48.0 - Paroxysmal atrial fibrillation (6) Hypertension Current Visit: Yes Status: Chronic Assessment and plan: Well-controlled. Continue home medications Qualifiers: Hypertension type: essential hypertension Qualified Code(s): I10 - Essential (primary) hypertension (7) DVT prophylaxis Current Visit: Yes Status: Acute Assessment and plan: On IV heparin. - Time Spent With Patient Total time spent is greater than 50% in coordination of care (as documented) at patient's floor/unit and/or counseling patient: - Subjective Interval history: Patient is awaiting vascular surgery evaluation planned for later today. Denies any chest pain or palpitations. Pain in his lower extremities are well controlled at this time. No fever or chills reported overnight. - Constitutional Vitals: Temp Pulse Resp BP Pulse Ox 97.6 F 64 18 116/49 97 12/24/17 11:09 12/24/17 11:09 12/24/17 11:09 12/24/17 11:09 12/24/17 11:09 General appearance: Present: cooperative, A&O X 3, answers questions appropriately - Respiratory Respiratory exam: Present: CTAB. Absent: accessory muscle use, rales, rhonchi, wheezes - Cardiovascular Cardiovascular exam: Present: RRR, +S1, +S2. Absent: diastolic murmur, gallop, rubs, systolic murmur - GI/Abdominal GI/Abdominal exam: Present: normal bowel sounds, soft, no peritoneal signs. Absent: distended, tenderness - Extremities Exam Extremities exam: Present: warm, radial pulses palpable and symmetrical. Absent : calf tenderness, cyanotic, pedal edema Additional comments: Left foot currently bandaged. Decreased pedal pulses. Necrotic ulcer on lateral aspect of the right heel. Ulcer also present on left foot over fifth metatarsal region - Neurological Exam Neurological exam: Present: alert, oriented X3, no focal deficits. Absent: facial droop, speech deficit - Skin Skin exam: Present: dry, intact Internal Medicine: Result - Labs CBC & Chem 7: 12/24/17 05:08 12/24/17 05:08 Labs: Short CBC 12/23/17 12/24/17 Range/Units 17:31 05:08 WBC 10.3 (4.3-11.1) K/mcL Hgb 11.4 L D 10.5 L (12.9-16.9) g/dL Hct 34.4 L 31.5 L (37.5-50.1) % Plt Count 234 (140-400) K/mcL Neutrophils # 7.2 (1.6-8.9) K/mcL BMP 12/24/17 05:08 Sodium 137 Potassium 4.4 Chloride 105 Carbon Dioxide 27 BUN 16 Creatinine 0.73 Glucose 171 H Calcium 8.8 - ABG Interpretation ABG results: PT/INR, D-dimer PT 11.7 Seconds (9.4-12.1) 12/22/17 19:19 Consult Discharge Plan - Plan Referrals: Claude Lopez, PAC [Primary Care Provider] -
--- NOTE | 2017-12-24 14:10 | Invasive Diagnostic Lab Proc ---
Name: Jose Taylor Date of Study: 12/24/2017 Date: 1965 Ht: 173.0 in Medical Record#: [id number] Age: 51 Wt: 88.9 lb Gender: Male BSA: 2.03 Order #: [id number] BMI: 29.7 Physicians Performing MD: Rajan Trammell MD, FACS Referring MD: Referring MD: Staff Name Position Time In Rosangela Barrios RT Manufacturing Inspector Rosangela Barrios RT Scrub Whitney Alonso RN Monitor Indications Peripheral Vasc Disease Procedures Performed AORTOGRAPHY, ABDOMINAL S&I AORTOGRAPHY EXT Bilat S&I Pre-Procedure Checklist Informed consent is complete signed and on chart. H&P is on chart. ID band is on and ID verified with patient. Patient NPO for procedure The procedure was described for the patient and questions were answered. Blood Pressure: 111/72 ECG is on chart. Rhythm: Atrial Fibrillation Plan of Care Patient will tolerate the procedure without complications. Adequate level of comfort will be maintained. Hemodynamics will remain stable Patient will recover from procedure without complications. Respiratory function will be maintained. Cardiac rhythm will remain stable. Patient temperature will be maintained. Patient and/or family have verbalized understanding of the procedure. Patient Education Chief Complaint/Reason for Test: Peripheral angiogram Developmental Category: Adult (18-64 years) Learning Barriers: None Education Needs: Procedure Education Method: Verbal Information Taught: Peripheral angiogram Educational Evaluation: Able to repeat information Intravenous Access Time IV Size Location DC'd Fluid/Drip Rate Units RN 12:00 20g 1 /" Patent On Arrival Rt Arm 0.9NaCl 25 ml/hr Penny Ramos RN Allergies NKA hydrocodone pregabalin No Known Allergies Vital Signs Time BP Systolic BP Diastolic HR O2 Sats ASA 111 72 73 98 12:12 PM 12:12 PM 12:28 PM 01:01 PM 01:16 PM 01:32 PM 12:21 PM 103 48 72 100 12:27 PM 145 122 74 95 12:29 PM 112 46 71 90 12:31 PM 109 46 72 100 12:35 PM 115 46 69 99 12:40 PM 115 46 68 99 12:45 PM 117 48 64 100 12:50 PM 126 46 59 100 12:55 PM 112 48 72 100 01:00 PM 123 53 72 100 01:06 PM 110 45 73 100 01:11 PM 108 42 60 100 01:16 PM 105 28 69 100 01:21 PM 109 45 71 100 01:26 PM 98 42 64 100 01:30 PM 106 51 71 78 01:39 PM 105 43 66 100 Procedure Medications Time Medication Dose Units Method Route 12:05 PM Oxygen 2 L/min nasal cannula 12:12 PM Versed 1 mg Intravenous 12:13 PM Fentanyl 50 mcg Intravenous 12:18 PM Lidocaine 2% 10 ml Subcutaneous 12:19 PM Versed 1 mg Intravenous 12:19 PM Fentanyl 50 mcg Intravenous 01:00 PM Versed 1 mg Intravenous 01:00 PM Fentanyl 50 mcg Intravenous 01:24 PM Versed 1 mg Intravenous Arsalan Score Preprocedure Postprocedure Activity 2- Moves 4 extremities sustained head lift Activity 2- Moves 4 extremities sustained head lift Circulation 2- SBP +/= 20 points of pre-anesthetic level Circulation 2- SBP +/= 20 points of pre-anesthetic level Consciousness 2- Awake and alert oriented x 3 Consciousness 2- Awake and alert oriented x 3 O2 Saturation 2- Able to maintain O2 satruation of 92% on room air O2 Saturation 2- Able to maintain O2 satruation of 92% on room air Respiratory 2- Able to deep breathe and cough well Respiratory 2- Able to deep breathe and cough well Total Score 10 Total Score 10 Contrast: Isovue 300- 150ml Contrast Amount: 126 ml Fluoro Dose: 1100 mGy Procedure Log Time Note Entered By 11:59 AM Pt arrived to lab pack chemist 1 at 11:59 [facility] 11:59 AM Physician paged/called 11:59 [facility] 11:59 AM Physican responded and notified patient is [facility] 12[facility] PM Phys[facility] arrived [facility] 12[facility] PM Meet and greet completed [facility] 12:03 PM Sign in performed according to hospital policy. [email or web address] 12:04 PM [facility] PM 12:05 Oxygen at 2 L/min per nasal cannula by Penny Ramos RN 12:12 PM Time: 12:12 Is patient comfortable and pain free?: Yes [email or web address] 12:12 PM Time: 12:12LOC: 5 = Fully awake and oriented or at pre-proc level [email or web address] 12:12 PM Case delayed: no, inpatient [facility] 12:12 PM Hair removed from procedure site in procedure lab using clippers. Bilateral groin prepped with Chloraprep by Whitney Alonso RN, then patient was draped. Skin intact. [facility] 12:12 PM Penny Ramos RN Position: Manufacturing Inspector Time in: 12:12 [facility] 12:12 PM Rosangela Barrios RT Position: Scrub Time in: 12:12 [facility] 12:12 PM Whitney Alonso RN Position: Monitor Time in: 12:12 [facility] 12:13 PM 12:12 Versed 1 mg Intravenous Given by Penny Ramos RN [facility] 12:13 PM 12:13 Fentanyl 50 mcg Intravenous Given by Penny Ramos RN [facility] 12:13 PM Patient charges- Angio tray pack, Pulse Oximetry and ACIST tubing and transducer [facility] 12:18 PM Time out perfomed [facility] 12:19 PM 12:18 10 ml Lidocaine 2% to right groin Subcutaneous Given By Rajan Trammell MD, FACS [facility] 12:19 PM 12:19 Versed 1 mg Intravenous Given by Penny Ramos RN [facility] 12:19 PM 12:19 Fentanyl 50 mcg Intravenous Given by Penny Ramos RN [facility] 12:20 PM Access obtained in the right femoral artery by percutaneous puncture. 5 Fr. 10 cm Terumo Fannin sheath placed in right femoral artery [facility] 12:20 PM 5Fr Short pigtail catheter inserted [facility] 12:20 PM jwire removed [facility] 12:21 PM Abdominal aorta angiography performed in AP contrast injected 10/20 mls. scoates 12:24 PM catheter repositioned scoates 12:24 PM Setting up for stepping scoates 12:24 PM Abdominal angiogram with runoff completed: 6 ml/sec for a total of 60 mls scoates 12:28 PM Time: 12:12LOC: 4 = Oriented but drowsy scoates 12:29 PM Time: 12:12 Is patient comfortable and pain free?: Yes scoates 12:29 PM physician reviewing films scoates 12:30 PM Intervention started at this time scoates 12:31 PM Sheath exchanged for a 6 Fr 45 cm Terumo Destination sheath inserted into right femoral artery scoates 12:36 PM 4mls of contrast hand injected scoates 12:39 PM jwire removed scoates 12:39 PM 4mls of contrast hand injected scoates 12:40 PM 0.035 Glidewire Angled 260cm guidewire advanced. scoates 12:46 PM glidewire removed scoates 12:47 PM 4mls of contrast scoates 12:48 PM 0.014 Victory 14, 18 gram 300cm guidewire advanced. scoates 12:51 PM 4mls of contrast hand injected scoates 12:54 PM guide wire removed intact scoates 12:56 PM 4mls of contrast hand injected scoates 12:58 PM catheter removed scoates 12:59 PM 5Fr 65cm Glidecath Angled-Taper guide catheter advanced scoates 01:00 PM 13:00 Versed 1 mg Intravenous Given by Penny Ramos RN scoates 01:00 PM 13:00 Fentanyl 50 mcg Intravenous Given by Penny Ramos RN scoates 01:00 PM omni flush reinserted scoates 01:01 PM Time: 12:28LOC: 4 = Oriented but drowsy scoates 01:01 PM Time: 12:29 Is patient comfortable and pain free?: Yes scoates 01:06 PM 4mls of contrast hand injected scoates 01:11 PM 3mls of contrast hand injected scoates 01:12 PM guide wire removed intact scoates 01:12 PM glidecath removed intact scoates 01:14 PM 4mls of contrast hand injected scoates 01:16 PM Time: 13:01 Is patient comfortable and pain free?: Yes scoates 01:16 PM Time: 13:01LOC: 4 = Oriented but drowsy scoates 01:24 PM 13:24 Versed 1 mg Intravenous Given by Penny Ramos RN scoates 01:31 PM Procedure completed at 13:31 scoates 01:32 PM Time: 13:16LOC: 4 = Oriented but drowsy scoates 01:32 PM Time: 13:16 Is patient comfortable and pain free?: Yes scoates 01:33 PM Sign Out completed: Radiation Dose 1100 mGy Fluoro Time: 17.2 minutes. Isovue 300- 150ml contrast 126 ml given by Rajan Trammell MD, FACS. Complications: None. Confirmed administered medications:Yes scoates 01:34 PM Isovue 300- 150ml,1 bottle(s) used. scoates 01:34 PM Arterial sheath pulled using manual compression and V+Pad for 15 minutes by Rosangela Barrios RT scoates 01:34 PM Post Blood Pressure: 106/51 scoates 01:34 PM Post EKG: Atrial Fibrillation scoates 01:37 PM 13:37 Post Pulses: Rt DP and pt Doppler. scoates 01:37 PM 13:37 Post Pulses: Lt DP None. scoates 01:37 PM 13:37 Post Pulses: Lt PT Doppler. scoates 01:38 PM Information taught: Peripheral angiogram scoates 01:38 PM Education needs: Procedure, Plan of Care, and Responsibilities of Patient in Care scoates 01:38 PM Learning barriers: None scoates 01:38 PM Education methods: Verbal scoates 01:38 PM Education evaluation: Able to repeat information scoates 01:38 PM Patient pain level 0/10 scoates 01:38 PM Family placed in consult room. scoates 01:38 PM Complications: None scoates 01:39 PM Fluoro Time: 17.2 minutes scoates 01:39 PM Isovue 300- 150ml contrast 126 ml given by Rajan Trammell MD, FACS scoates 01:39 PM Radiation Dose 1100 mGy scoates 01:41 PM Diagram Region: Lower Extremity Arteries Anatomical Region: [id number]% Lesion in Proximal Left Superficial Femoral RN CARDIAC REHAB Intervention done: 0 (1=yes, 0=no) scoates 01:42 PM Diagram Region: Lower Extremity Arteries Anatomical Region: LE-Art99% Lesion in Proximal Left Popliteal Intervention done: 0 (1=yes, 0=no) scoates 01:42 PM Diagram Region: Lower Extremity Arteries Anatomical Region: [id number]% Lesion in Proximal Left Post. Tibial Intervention done: 0 (1=yes, 0=no) scoates 01:43 PM Diagram Region: Lower Extremity Arteries Anatomical Region: [id number]% Lesion in Mid Left Ant. Tibial Intervention done: 0 (1=yes, 0=no) scoates 01:47 PM Time: 13:32 Is patient comfortable and pain free?: Yes scoates 01:47 PM Time: 13:32LOC: 4 = Oriented but drowsy scoates 01:47 PM Diagram Region: Lower Extremity Arteries Anatomical Region: [id number]% Lesion in Left Peroneal Intervention done: 0 (1=yes, 0=no) scoates 01:48 PM Diagram Region: Lower Extremity Arteries Anatomical Region: LE-Art99% Lesion in Proximal Right Superficial Femoral Intervention done: 0 (1=yes, 0=no) scoates 01:48 PM Diagram Region: Lower Extremity Arteries Anatomical Region: [id number]% Lesion in Right Post. Tibial RN CARDIAC REHAB Intervention done: 0 (1=yes, 0=no) scoates 01:49 PM Diagram Region: Lower Extremity Arteries Anatomical Region: [id number]% Lesion in Right Post. Tibial Intervention done: 1 (1=yes, 0=no) scoates 01:50 PM Site status No bleeding/hematoma - Rt Groin as reported by Rosangela Barrios RT at 13:50 scoates 01:50 PM Opsite applied scoates 01:50 PM Delay to floor: No scoates 01:57 PM Pt taken to [facility] Room# 20 scoates 01:59 PM Report given to Flower ABREU. Pt taken to [facility], Room # 20 13:59 scoates 01:59 PM Patient out of room 13:59 scoates 01:06 PM HR=73 bpm, OVRK=499/45 mmhg, OjG5=812.0 % 01:11 PM HR=60 bpm, RQAR=741/42 mmhg, WzP2=530.0 % 01:14 PM NIBP STAT measurement started. 01:16 PM HR=69 bpm, AZEN=109/28 mmhg, VjX0=529 % 01:21 PM HR=71 bpm, QXZJ=636/45 mmhg, LnH8=345 % 01:26 PM HR=64 bpm, NIBP=98/42 mmhg, OqA4=082.0 % 01:29 PM NIBP STAT measurement started. 01:30 PM HR=71 bpm, JUHN=936/51 mmhg, SpO2=78.0 % 01:37 PM Vitals capture stopped. 01:38 PM NIBP STAT measurement started. 01:39 PM HR=66 bpm, QLLA=833/43 mmhg, PmC3=073 % 12:00 PM PVIStat 12:12 PM Vitals capture started with the following parameters, Patient=Adult, Interval=5 min, Initial Neeykynb=968 mmHg, Deflation Rate=3 mmHg, Cuff placed on Right Arm 12:19 PM Vitals capture started with the following parameters, Patient=Adult, Interval=5 min, Initial Ylkbbxyc=475 mmHg, Deflation Rate=3 mmHg, Cuff placed on Right Arm 12:21 PM HR=72 bpm, VLKY=668/48 mmhg, LtW0=725.0 %, Comment=afib 12:22 PM Recorded Pressure: Ao, HR=72, Condition=Condition 1 (Aorta) Ao 113/58/79 12:27 PM HR=74 bpm, UOJE=629/122 mmhg, SpO2=95.0 % 12:28 PM NIBP STAT measurement started. 12:29 PM HR=71 bpm, WXLJ=150/46 mmhg, SpO2=90.0 %, Comment=afib 12:31 PM HR=72 bpm, CVEI=064/46 mmhg, JaB8=734.0 % 12:35 PM HR=69 bpm, SPSN=506/46 mmhg, SpO2=99.0 %, Comment=afib 12:40 PM HR=68 bpm, XHIB=508/46 mmhg, SpO2=99.0 %, Comment=afib 12:45 PM HR=64 bpm, BVRL=430/48 mmhg, DmF8=487.0 %, Comment=afib 12:50 PM HR=59 bpm, QOKL=556/46 mmhg, PuP4=178.0 %, Comment=afib 12:55 PM HR=72 bpm, NQIM=024/48 mmhg, XnG6=219.0 %, Comment=afib 01:00 PM HR=72 bpm, NATI=121/53 mmhg, GwL3=363.0 %, Comment=afib Hemodynamic Results Site Systolic Diastolic Mean Location Timing Ao 113 58 79 Peripheral Anatomy Vessel Pathology Lesion Stenosis Aneurysm Diameter Thrombus Type Left Superficial Femoral Lesion 100 Left Popliteal Lesion 99 Left Post. Tibial Lesion 100 Left Ant. Tibial Lesion 100 Left Peroneal Lesion 100 Right Superficial Femoral Lesion 99 Right Post. Tibial Lesion 100 Right Post. Tibial Lesion 100 Peripheral Intervention Anatomical Region:LE-Art Vessel Segment:Undefined Bookmark: [email or web address] Pathology Type:Lesion Pre-Stenosis:99 Peripheral Intervention Anatomical Region:LE-Art Vessel Segment:Undefined Bookmark: [email or web address] Pathology Type:Lesion Pre-Stenosis:100 Peripheral Intervention Anatomical Region:LE-Art Vessel Segment:Undefined Bookmark: [email or web address] Pathology Type:Lesion Pre-Stenosis:100 Peripheral Intervention Anatomical Region:LE-Art Vessel Segment:Undefined Bookmark: [email or web address] Pathology Type:Lesion Pre-Stenosis:100 Peripheral Intervention Anatomical Region:LE-Art Vessel Segment:Undefined Bookmark: [email or web address]_Intv Pathology Type:Lesion Pre-Stenosis:99 Peripheral Intervention Anatomical Region:LE-Art Vessel Segment:Undefined Bookmark: [email or web address] Pathology Type:Lesion Pre-Stenosis:100 Post Procedure Information Blood Pressure: 106/51 mmHg Rhythm: Atrial Fibrillation Post procedure instructions given Report Given To: Kristie Site Checks Time Location Status Staff Sheath In? Note 1:50:00 PM Rt Groin No bleeding/hematoma Rosangela Barrios RT Pulses Time Site Pre Procedure Post Procedure Note 12/24/2017 12:00:00 PM Rt DP and pt Doppler 12/24/2017 12:00:00 PM Lt DP None 12/24/2017 12:00:00 PM Lt PT None 1:37:00 PM Rt DP and pt Doppler 1:37:00 PM Lt DP None 1:37:00 PM Lt PT Doppler Updated by Penny Ramos RN on 12/24/2017 2:03:37 PM electronically signed on 12/24/2017 2:04:50 PM with status of Final
[2017-12-24] MEDS: clonazePAM 1 MG TABLET PO PRN (16:54)
[2017-12-24] MEDS: Sennosides/Docusate Sodium TABLET PO PRN (18:36)
[2017-12-24] MEDS: Insulin DETEMIR 100 UNIT/ML X5UNITS SQ SCH (23:34)
[2017-12-25 01:12] LABS: Basophils % 0.4 %; Eosinophils # 0.3 K/mcL (0.0-0.6); Eosinophils % 2.7 %; Hematocrit 31.2 % (37.5-50.1); Hemoglobin 10.4 g/dL (12.9-16.9); Immature Granulocytes % 0.7 % (0-4); Lymphocytes # 1.8 K/mcL (0.6-4.6); Lymphocytes % 18.6 %; Mean Corpuscular HGB Conc 33.3 g/dL (31.6-35.5); Mean Corpuscular Hemoglobin 30.5 pg (28.0-33.3); Mean Corpuscular Volume 91.5 fL (83.0-100.0); Mean Platelet Volume 10.8 fL (9.4-12.4); Monocytes # 0.7 K/mcL (0.0-1.3); Monocytes % 7.1 %; Neutrophils # 6.7 K/mcL (1.6-8.9); Platelet Count 224 K/mcL (140-400); Red Blood Count 3.41 M/mcL (4.19-5.50); Segmented Neutrophils % 70.5 %
[2017-12-25 01:30] LABS: BUN/Creatinine Ratio 19 (6-26); Blood Urea Nitrogen 15 mg/dL (6-20); Calcium 8.5 mg/dL (8.6-10.3); Carbon Dioxide 25 mEq/L (23-29); Chloride 102 mEq/L (98-107); Glucose 316 mg/dL (70-105); Osmolality,Calculated 293 (280-300); Potassium 4.2 mEq/L (3.5-5.1); Sodium 135 mEq/L (136-145); eGFR For African Americans > 60 (> 60); eGFR For Non-African Americans > 60 (> 60)
[2017-12-25] MEDS: *HR* OxyCODONE/APAP 7.5/325 TABLET PO PRN ×2 (02:54→11:46)
[2017-12-25] MEDS: Metoprolol XL (24 HR) Succ 50 MG TAB.ER.24H PO SCH (07:39)
[2017-12-25] MEDS: Furosemide 40 MG TABLET PO SCH (07:39)
[2017-12-25] MEDS: Gabapentin 400 MG CAPSULE PO SCH (07:39)
[2017-12-25] MEDS: Nicotine 21 MG PATCH.TD24 TD SCH (07:39)
[2017-12-25] MEDS: Piperacillin/Tazobactam 3.375 GM in 0.9 % Sodium Chloride Mini Bag 100 ML IVPB SCH (07:40)
[2017-12-25] MEDS: Insulin LISPRO 300 UNITS/3 ML VIAL SQ SCH (07:43)
[2017-12-25] MEDS ORDERED: Insulin LISPRO 300 UNITS/3 ML VIAL SQ SCH ×2 (11:10→21:00)
[2017-12-25 11:21] VITALS: BP 119/73
--- NOTE | 2017-12-25 11:34 | Cardiology Consult Note ---
<Bertrand Grullon - Last Filed: 12/25/17 11:32> Date of Encounter: 12/25/17 Time of Encounter: 11:33 Assessment and Plan (1) Preop cardiovascular exam Status: Acute (2) Alcohol abuse Status: Acute (3) Diabetes Status: Chronic Qualifiers: Diabetes mellitus type: type 2 Diabetes mellitus meterman insulin use: with meterman use Diabetes mellitus complication status: with circulatory complication Diabetes mellitus complication detail: with peripheral angiopathy with gangrene Qualified Code(s): E11.52 - Type 2 diabetes mellitus with diabetic peripheral angiopathy with gangrene (4) Tobacco abuse Status: Acute (5) Diastolic CHF Status: Chronic Qualifiers: Qualified Code(s): I50.32 - Chronic diastolic (congestive) heart failure (6) Hypertension Status: Acute Qualifiers: Hypertension type: essential hypertension Qualified Code(s): I10 - Essential (primary) hypertension (7) Peripheral arterial disease Status: Acute (8) Afib Status: Chronic Qualifiers: Atrial fibrillation type: paroxysmal Qualified Code(s): I48.0 - Paroxysmal atrial fibrillation (9) Hypertension Status: Chronic Qualifiers: Hypertension type: essential hypertension Qualified Code(s): I10 - Essential (primary) hypertension (10) 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 All questions were answered. Thank you for involving us in the care of your patient. Please call with any questions. History of Present Illness Consult date: 12/25/17 Requesting physician: Puja Rudolph Consult reason: pre op risk stratification Chief complaint: lower extremity gangrenous changes History of present illness: Mr. Taylor is a 51 year old male with past medical history of IDDM, hypertension , hyperlipidemia, tobacco abuse, alcohol abuse, atrial fibrillation not on anticoagulation, pacemaker/ICD which she states is for cystic fibrosis and " only having half a heart ". 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 He has been admitted to [place] recently for vascular workup for lower extremities and discharged to wound care. Vascular surgery has evaluated the patient and after aortography, determined that patient requires urgent left frmoral to tibial bypass surgery. Cardiology was consulted for pre operative risk stratification. Patients cardiac history including AFib not on AC, a self reported history of congenital heart disease as above, cystic fibrosis. No reported CAD, reports LHC >10 years ago which was normal. Echocardiogram on 12/24/17 shows EF 55%, mild diastolic dysfunction, pacemaker. EKG shows Ventricular paced rhythm without signs of ischemia. Patient states that he experiences no chest pain in the last month but does occasionally experience substernal chest pain at rest which self resolves. Is able to achieve >4 METs without chest pain or SOB. Past Med Surg Social Fam HX - Past Medical History Medical history: atrial fibrillation, CHF, diabetes, hyperlipidemia, hypertension, other Additional medical history: cystic fibrosis Psychiatric history: anxiety - Past Surgical History Surgical History: other (Right transmetatarsal amputation) Additional surgical history: right toes amputation - Social History Smoking Status: Current every day smoker Smokeless Tobacco Status: No Alcohol use: occasionally Drug use: none, other - Family History Mother Living Status: Hx Family Cardiac Disorders: Yes Hx Family Respiratory Disorders: Yes Hx Family Cancer: Yes Hx Family GI Disorders: No Hx Family Endocrine Disorder: Yes (Diabetes) Hx Family Neuromuscular Disorders: No Hx Family Neurologic Disorders: No Hx Family HEENT Disorders: No Hx Family Autoimmune Disorders: No Medications and Allergies Atorvastatin Calcium [Lipitor] 80 mg PO HS 12/22/17 [History] Dapagliflozin Propanediol [Farxiga] 5 mg PO DAILY 12/22/17 [History] Furosemide [Lasix] 40 mg PO DAILY 12/22/17 [History] Gabapentin [Neurontin] 800 mg PO TID 12/22/17 [History] Insulin ASPART [Novolog Flexpen] 0 - 19 units SQ TIDWM 12/22/17 [History] Insulin Glargine,Hum.rec.anlog [Lantus Solostar] 50 units SQ HS 12/22/17 [ History] Lisinopril [Zestril] 5 mg PO DAILY 12/22/17 [History] Metoprolol Succinate [Toprol Xl] 50 mg PO DAILY 12/22/17 [History] OxyCODONE/APAP 7.5/325 [Percocet 7.5/325 MG] 1 tab PO QID PRN 12/22/17 [History] clonazePAM [Klonopin] 1 mg PO TID PRN 12/22/17 [History] 3 Allergy/AdvReac Type Severity Reaction Status Date / Time hydrocodone AdvReac Itching Verified 12/22/17 20:27 pregabalin [From Lyrica] AdvReac Itching Verified 12/22/17 20:27 All Systems Review: The remainder of the systems were reviewed and are negative - Constitutional Constitutional: no chills, no fever(s), no lethargy - Cardiovascular Cardiovascular: chest pain at rest, no chest pain with exertion, no diaphoresis , no dyspnea at rest, no dyspnea on exertion, no palpitations, no paroxysmal nocturnal dyspnea - Respiratory Respiratory: no cough, no dyspnea, no hemoptysis - Gastrointestinal Gastrointestinal: no nausea - Integumentary Integumentary: no erythema, no rash - Neurological Neurological: no syncope Physical Examination Vital Signs, Last 4 Hours Temp Pulse Resp BP Pulse Ox 12/25/17 11:20 98.5 F 61 16 119/73 98 General: Conversant, No Apparent Distress HEENT: Atraumatic, Normocephaly, Mucus Membranes Moist Neck: No JVD, Normal carotid pulses Cardiac: Normal S1 and S2, No Murmur, Other (irregular) Lungs: Normal Breath Sounds, No Wheeze, Rales, Rhonchi Neuro: Alert and responsive, No focal deficits noted Abdomen: Soft, Non-Tender Skin: No rashes noted on visualized skin Musculoskeletal: No Chest Wall Tenderness Extremities: No Clubbing, No Cyanosis, No Edema, Normal Pulses Results 12/25/17 00:51 12/25/17 00:51 Lab Results 12/25/17 12/25/17 00:51 00:51 WBC 9.5 Hgb 10.4 L Hct 31.2 L Plt Count 224 Sodium 135 L Potassium 4.2 Chloride 102 Carbon Dioxide 25 BUN 15 Creatinine 0.78 Glucose 316 H Calcium 8.5 L Consult Discharge Plan - Plan Referrals: Claude Lopez, PAC [Primary Care Provider] - <Johnathan Stuart - Last Filed: 12/25/17 13:01> Date of Encounter: 12/25/17 - Attending Attestation I examined this patient and my medical decision-making was reviewed with the Resident Physician. I agree with the documented findings, disposition and treatment plan as described except to the extent set forth below. 51 YOM with PAD here for open vascular Fem-pop with multiple comorbidities. Patient declines any cardiac testing at this time including a stress test. Likely high risk for cardiac events with surgery. LVEF 55% with unremarkable EKG Assessment and Plan Discussion w patient/family: The assessment and plan as outlined above was discussed with the patient and/or family members who expressed understanding and agreement. All questions were answered. Thank you for involving us in the care of your patient. Please call with any questions. History of Present Illness History of present illness: Mr. Taylor is a 51 year old male All Systems Review: The remainder of the systems were reviewed and are negative Physical Examination Vital Signs, Last 4 Hours Temp Pulse Resp BP Pulse Ox 12/25/17 11:20 98.5 F 61 16 119/73 98 Results 12/25/17 00:51 12/25/17 00:51 Lab Results 12/25/17 12/25/17 00:51 00:51 WBC 9.5 Hgb 10.4 L Hct 31.2 L Plt Count 224 Sodium 135 L Potassium 4.2 Chloride 102 Carbon Dioxide 25 BUN 15 Creatinine 0.78 Glucose 316 H Calcium 8.5 L
[2017-12-25] MEDS: Sennosides/Docusate Sodium TABLET PO PRN (11:55)
[2017-12-25] MEDS ORDERED: Aminoglycoside Consult 1 EACH MC ONE (12:34)
--- NOTE | 2017-12-25 13:55 | Discharge Summary ---
- NOTES TO OUTPATIENT PROVIDER Notes to Outpatient Provider: Patient hospitalized with bilateral ischemic foot ulcers. Was evaluated by vascular surgery and underwent angiogram and was recommended bypass surgery. Patient was evaluated by cardiology for preoperative evaluation and has been deemed to be at high risk for cardiac events with surgery. However patient decided to leave the hospital AMA before completing treatment. 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: with termite control technician use Diabetes mellitus complication status: with circulatory complication Diabetes mellitus complication detail: with peripheral angiopathy with gangrene Qualified Code(s): E11.52 - Type 2 diabetes mellitus with diabetic peripheral angiopathy with gangrene (4) Tobacco abuse Priority: Secondary Status: Acute (5) Hypertension Priority: Secondary Status: Acute Qualifiers: Hypertension type: essential hypertension Qualified Code(s): I10 - Essential (primary) hypertension (6) Afib Priority: Secondary Status: Chronic Qualifiers: Atrial fibrillation type: paroxysmal Qualified Code(s): I48.0 - Paroxysmal atrial fibrillation (7) Hypertension Priority: Secondary Status: Chronic Qualifiers: Hypertension type: essential hypertension Qualified Code(s): I10 - Essential (primary) hypertension (8) Preop cardiovascular exam Priority: Secondary Status: Acute (9) Alcohol abuse Priority: Secondary Status: Acute (10) Congestive heart failure Priority: Secondary Status: Acute Qualifiers: Heart failure type: diastolic Heart failure chronicity: chronic Qualified Code(s): I50.32 - Chronic diastolic (congestive) heart failure Hospital course: Mr. Taylor is a 51 year old male Patient with history of atrial fibrillation, congestive heart failure, diabetes, hypertension and hyperlipidemia who was hospitalized with bilateral ischemic foot ulcers. He Was evaluated by vascular surgery and underwent angiogram and was recommended bypass surgery. Evens was also started on IV antibiotics. Patient was evaluated by cardiology for preoperative evaluation and has been deemed to be at high risk for cardiac events with surgery. However patient decided to leave the hospital AMA before completing treatment. He did sign paperwork understanding the risk of complications from not receiving appropriate treatment. Discharge discussed with: patient, nurse, computing consultant - Time Spent with Patient Total time spent providing and/or coordinating discharge services: Less than 30 minutes (25 min) - Discharge Medications Home Medications: Atorvastatin Calcium [Lipitor] 80 mg PO HS 12/22/17 [History] Dapagliflozin Propanediol [Farxiga] 5 mg PO DAILY 12/22/17 [History] Furosemide [Lasix] 40 mg PO DAILY 12/22/17 [History] Gabapentin [Neurontin] 800 mg PO TID 12/22/17 [History] Insulin ASPART [Novolog Flexpen] 0 - 19 units SQ TIDWM 12/22/17 [History] Insulin Glargine,Hum.rec.anlog [Lantus Solostar] 50 units SQ HS 12/22/17 [ History] Lisinopril [Zestril] 5 mg PO DAILY 12/22/17 [History] Metoprolol Succinate [Toprol Xl] 50 mg PO DAILY 12/22/17 [History] OxyCODONE/APAP 7.5/325 [Percocet 7.5/325 MG] 1 tab PO QID PRN 12/22/17 [History] clonazePAM [Klonopin] 1 mg PO TID PRN 12/22/17 [History] Allergies/Adverse Reactions: 3 Allergy/AdvReac Type Severity Reaction Status Date / Time hydrocodone AdvReac Itching Verified 12/22/17 20:27 pregabalin [From Lyrica] AdvReac Itching Verified 12/22/17 20:27 Date of admission: 12/22/17 20:46 Primary care physician: Claude Lopez Consults: 12/23/17 17:20 Consult to Wound Care [CONS] Routine Reason for Consult: BLE arterial ulcers Call Completed: No 12/24/17 10:47 Consult to Podiatry [CONS] Routine Consulting Provider: [facility] Reason for Consult: necrotic ulcers to bilateral feet Time Notified: 10:48 Call Completed: No 12/24/17 17:01 Consult to Cardiology [CONS] Routine Comment: Consulting Provider: Card[facility] Reason for Consult: Preop evaluation for fem pop bypass. Patient reports congenital heart disease Call Completed: No Discharging clinician: Puja Rudolph Anticipated date of discharge: 12/25/17 - Constitutional Vitals: Temp Pulse Resp BP Pulse Ox 98.5 F 61 16 119/73 98 12/25/17 11:20 12/25/17 11:20 12/25/17 11:20 12/25/17 11:20 12/25/17 11:20 General appearance: Present: cooperative, A&O X 3, answers questions appropriately - Respiratory Respiratory exam: Present: CTAB. Absent: accessory muscle use, rales, rhonchi, wheezes - Cardiovascular Cardiovascular exam: Present: RRR, +S1, +S2. Absent: diastolic murmur, gallop, rubs, systolic murmur - GI/Abdominal GI/Abdominal exam: Present: normal bowel sounds, soft, no peritoneal signs. Absent: distended, tenderness - Extremities Exam Extremities exam: Present: warm, radial pulses palpable and symmetrical. Absent : calf tenderness, cyanotic, pedal edema Additional comments: Stable bilateral foot ulcers. Weak pedal pulses - Patient Status Disposition: Left Against Medical Advice Condition: Serious - Discharge Instructions Follow Up With: Claude Lopez, PAC [Primary Care Provider] -
== END 2017-12-25 12:35 | disposition left against medical advice (07) | DRG 300 ==
LOC: EMEROO 18:04 → 3ANU 18:04 → SUATTDRO 20:46 → OBSVTOIN 20:46 → 3NENU 21:08
PROVIDERS: ADMIT Internal Medicine; ATTEND Internal Medicine

== ENCOUNTER 2017-12-29 08:41 | Inpatient (IN) ==
[2017-12-29] MEDS ORDERED: CeFAZolin Syr 2,000MG/20 ML 2,000 MG/20 ML SYRINGE IVPB ONE (08:59)
[2017-12-29] MEDS ORDERED: Albuterol 2.5 MG/3 ML NEBULIZER IH ONE (08:59)
[2017-12-29] MEDS ORDERED: Ringers Solution, Lactated 1,000 ML IVC SCH (09:00)
--- NOTE | 2017-12-29 09:15 | Anesthesia Evaluation PreOp ---
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 SPECIALIST History: Other (anxiety) Other Medical History: Diabetes Type II Anesthesia History: No Prior Anesthetic Complications, Past Anesthesia Alcohol Use: occasionally Drug use: none, other Medications and Allergies Atorvastatin Calcium [Lipitor] 80 mg PO HS 12/22/17 [History] Dapagliflozin Propanediol [Farxiga] 5 mg PO DAILY 12/22/17 [History] Furosemide [Lasix] 40 mg PO DAILY 12/22/17 [History] Gabapentin [Neurontin] 800 mg PO TID 12/22/17 [History] Insulin ASPART [Novolog Flexpen] 0 - 19 units SQ TIDWM 12/22/17 [History] Insulin Glargine,Hum.rec.anlog [Lantus Solostar] 50 units SQ HS 12/22/17 [ History] Lisinopril [Zestril] 5 mg PO DAILY 12/22/17 [History] Metoprolol Succinate [Toprol Xl] 50 mg PO DAILY 12/22/17 [History] OxyCODONE/APAP 7.5/325 [Percocet 7.5/325 MG] 1 tab PO QID PRN 12/22/17 [History] clonazePAM [Klonopin] 1 mg PO TID PRN 12/22/17 [History] 3 Allergy/AdvReac Type Severity Reaction Status Date / Time hydrocodone AdvReac Itching Verified 12/22/17 20:27 pregabalin [From Lyrica] AdvReac Itching Verified 12/22/17 20:27 - Meds/Allergy Pre-op Review Medications Reviewed: Yes Allergies Reviewed: Yes Beta Blockers on Current Med List: Yes If Beta Blockers taken, Date/Time (Last Dose taken): 12/28/2017 at 1000 Anesthesia Results - Labs Laboratory Tests 12/22/17 12/24/17 12/25/17 19:19 05:12 00:51 WBC 9.5 Hgb 10.4 L Hct 31.2 L Plt Count 224 PT 11.7 INR 1.1 APTT 60.7 H Sodium Potassium BUN Creatinine 12/25/17 00:51 WBC Hgb Hct Plt Count PT INR APTT Sodium 135 L Potassium 4.2 BUN 15 Creatinine 0.78 - Imaging EKG: report reviewed (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 Normal LV chamber size, wall thickness and function. Mild left ventricular diastolic dysfunction. Atypical septal motion consistent with paced rhythm. Normal right ventricular structure and function. Mild mitral regurgitation. No evidence of pulmonary hypertension. A device lead was visualized in the right atrium and right ventricle. Anesthesia Exam O2 Sat Height 1.73 m Height 1.73 m Height 1.73 m Weight 88.904 kg Weight 88.904 kg Weight 88.904 kg O2 Sat by Pulse Oximetry 100 O2 Sat by Pulse Oximetry 100 Vital Signs Temp Pulse Resp BP Pulse Ox 98.2 F 79 18 132/62 100 12/29/17 09:02 12/29/17 09:02 12/29/17 09:02 12/29/17 09:02 12/29/17 09:02 Blood Glucose* 189 Height: 5'8'' Weight: 196 lbs NPO (# of Hours): 8 Pain Scale: 0 Pain Scale Used: Numeric (1 - 10) - HEENT Pupil (Motor): EOMI Mallampati: II Teeth: Edentulous Oral Opening: Greater than 3 - TRANSCRIPTION SPECIALIST LOC: Oriented TRANSCRIPTION SPECIALIST Motor: Normal RUE, Normal LUE, Normal RLE, Normal LLE, Normal Face TRANSCRIPTION SPECIALIST Sensory: Normal: RUE, LUE, Face, Deficit: RLE (diabetic neuropathy), LLE ( diabetic neuropathy) - Cardiac Rhythm: Regular Murmur: None - Pulmonary Breath Sounds: bilateral Clear Respiratory Effort: Symmetrical Anesthesia Assess/Plan ASA Score: 3 Modified Mariluz Scale for Level of Consciousness: Cooperative, oriented, and tranquil Anesthetic Plan: Regional Monitoring Plan: Standard Monitors, A-Line Recovery Plan: PACU
[2017-12-29] MEDS ORDERED: Heparin 1,000 UNITS/500 mL 500 ML ONE ×2 (10:32→12:10)
[2017-12-29] MEDS ORDERED: Propofol 500 MG/50 ML INFUS..BTL ONE ×4 (10:52→17:22)
[2017-12-29] MEDS ORDERED: Lidocaine -MPF 2% 2 ML VIAL ONE ×2 (10:52→12:40)
[2017-12-29] MEDS ORDERED: *HR* Midazolam HCl 2 MG/2 ML VIAL ONE (11:16)
[2017-12-29] MEDS ORDERED: *HR* FentaNYL (PF) 100 MCG/2 ML VIAL ONE (11:16)
[2017-12-29] MEDS ORDERED: Ondansetron 4 MG/2 ML VIAL ONE (11:19)
--- NOTE | 2017-12-29 11:45 | History & Physical Report ---
Date of Encounter: 12/29/17 Time of Encounter: 11:45 24 Hour HP Update - Instructions Instructions: If the History and Physical is less than 30 days old and was completed prior to A.M. admission and or procedure and has NOT been updated on calendar day of procedure please complete this update prior to performing procedure. - Update Patient reports changes in Medical Condition: No Changes in examination, assessment, or condition: No Changes in Medication: No Preop tests/diagnostics Reviewed: Yes Surgery Remains Indicated: Yes Consent for Planned Operative Procedure(s) Verified: Yes - Pre-Operative Checklist Preoperative Checklist Indicated: Yes Prophylactic Antibiotic Ordered: Yes Home Medications Include Beta Yasir: Yes Beta Yasir Taken Today (Day of Surgery): Yes Beta Yasir Taken Yesterday (Day Prior to Surgery): Yes Is VTE Prophylaxis Indicated?: Yes
[2017-12-29] MEDS ORDERED: Acetaminophen IV 1,000 MG/100 ML INFUS..BTL ONE (11:47)
[2017-12-29] MEDS ORDERED: Lidocaine/EPI 1:100k 2% 20 ML VIAL ONE ×3 (11:47→15:51)
[2017-12-29] MEDS ORDERED: *HR* Midazolam HCl 5 MG/5 ML VIAL IVP ONE (12:39)
[2017-12-29] MEDS ORDERED: *HR* Promethazine 25 MG/ML VIAL IVP PRN (13:41)
[2017-12-29] MEDS ORDERED: Ondansetron 4 MG/2 ML VIAL IVP ONE (13:41)
[2017-12-29] MEDS ORDERED: *HR* Labetalol 100 MG/20 ML MDV IVP PRN (13:41)
[2017-12-29] MEDS ORDERED: *HR* OxyCODONE Immed Rel 5 MG TABLET PO PRN (13:41)
[2017-12-29] MEDS ORDERED: *HR* Meperidine 25 MG/ML SYRINGE IVP PRN (13:41)
--- NOTE | 2017-12-29 13:45 | Anesthesia Procedures ---
Date of Encounter: 12/29/17 Time of Encounter: 13:00 Procedures: Anesthesia - Arterial Line Time out performed: Yes Local Anesthetic: Lidocaine 1% Amount of Anesthetic used (mls): 0.2 Size (Gauge): 20 Length (inches): 1 3/4 Technique Used: direct puncture technique Post-Procedure: dry sterile dressing placed Patient tolerated procedure: well, no complications Complications: none Site: Radial R Vitals: see OR record Comments: placed by CLARIBEL Gutierrez
[2017-12-29] MEDS ORDERED: Dexamethasone 4 MG/ML VIAL ONE (14:51)
[2017-12-29] MEDS ORDERED: *HR* Propofol 200 MG/20 ML VIAL IVP ONE (14:57)
[2017-12-29] MEDS ORDERED: *HR* Heparin 5,000 UNIT/ML VIAL ONE (16:28)
[2017-12-29] MEDS ORDERED: *HR* PHENYLEPHRINE 1,000 MCG/10 ML SYRINGE IVP ONE (17:25)
--- NOTE | 2017-12-29 18:39 | Operative Note ---
Date of procedure: 12/29/17 Pre-op diagnosis: non healing left foot wound/PAD Post-op diagnosis: same Procedure: left femoral-post tibial in situ saphenous vein bypass graft Complications: none Anesthesia: epidural, IV sedation Surgeon: Rajan Trammell Was there an assistant associate professor present: No Estimated blood loss (cc): 200 Specimen: 0 Condition: stable Disposition: PACU Procedure in Detail: History Jose Taylor is a 52-year-old white male who was seen for severe left lower extremity vascular occlusive disease with a nonhealing left foot wound and limb threatening ischemia. He has a history of poorly controlled diabetes and hypertension as well as tobacco abuse. Patient had undergone an angiogram last week. Diffuse disease was identified in the infrainguinal area and all 3 tibial vessels were affected. The posterior tibial artery was the best runoff vessel and the patient now comes to the operating room in an attempt to try to salvage the left lower extremity with a distal bypass graft. Procedure After informed consent was obtained the patient was taken to the operating room. Continuous spinal anesthesia with IV sedation was provided to the patient. The left lower extremity was sterilely prepped and draped. A timeout protocol was observed. The operation was begun with an incision in the left groin. This identified the greater saphenous vein and it appeared to be suitable for use as a conduit. Then the common femoral artery was dissected in preparation for using this for the proximal anastomosis. Then through interrupted incisions along the medial aspect of the left thigh and calf the greater saphenous vein was dissected and exposed. An in situ saphenous vein approach was planned for this conduit. Finally the midportion of the posterior tibial artery in the calf was dissected and controlled. This was a pulseless vessel and there is no Doppler signal over the vessel. After heparin was administered in a dose of 5000 units a 3 minute delay was observed. After this the greater saphenous vein was detached from its confluence into the deep system. An end of vein to side of artery anastomosis was then performed to the distal aspect of the common femoral artery. With the proximal anastomosis now performed the vein was ready for valve lysis for its in situ preparation. A 2 mm diameter LeMaitre a device was then inserted from the divided end of the vein at the calf. Then a 2.5 mm LeMaitre device was inserted. After inserting the 2.5 mm device excellent pulsatile flow was achieved through the graft. With this accomplished it was back flushed and then a clamp was placed on the graft. The posterior tibial artery was then opened in the mid to distal portion of the vessel. This vessel was found to be patent at this level. There is no thrombus. There is no obvious atherosclerotic disease. Backbleeding was demonstrated though there was no forward bleeding from the proximal aspect of the vessel. An end of vein to side of artery anastomosis was then performed using 6-0 Prolene suture. After appropriate backbleeding and flushing the graft was opened. Pulsatile flow was then restored into the calf and into the foot. An excellent Doppler signal was identified at the posterior tibial artery at the ankle. All wounds were then irrigated. The residual venous tributaries were ligated. The vein was then evaluated with a Doppler to inspect for any residual vein tributaries that could cause a AV fistula. With this done the wounds were then closed in layers using absorbable suture. A dry sterile dressing was applied over the wounds area the patient was then taken from the operating room to the recovery room in stable condition. The continuous epidural will be discontinued in the recovery room. The sponge count and needle counts were correct. There were no intraoperative complications.
[2017-12-29] MEDS ORDERED: *HR* OxyCODONE/APAP 7.5/325 TABLET PO PRN (20:19)
[2017-12-29] MEDS ORDERED: clonazePAM 1 MG TABLET PO PRN (20:19)
[2017-12-29] MEDS ORDERED: Acetaminophen 325 MG TABLET PO PRN (20:19)
[2017-12-29] MEDS ORDERED: *HR* Labetalol 20 MG/4 ML SYRINGE IVP PRN (20:19)
[2017-12-29] MEDS ORDERED: Ondansetron 4 MG/2 ML VIAL IVP PRN (20:19)
[2017-12-29] MEDS ORDERED: Naloxone 0.4 MG/ML INJ IVP PRN (20:19)
--- NOTE | 2017-12-29 20:30 | Anesthesia Evaluation Post Op ---
Date of Encounter: 12/29/17 Time of Encounter: 20:28 - Vital Signs Vital Signs: Vital Signs/O2 Sat, Most Current Temp Pulse Resp BP Pulse Ox 97.9 F 91 18 118/67 97 12/29/17 19:41 12/29/17 19:41 12/29/17 19:41 12/29/17 19:41 12/29/17 19:41 - Lungs Lungs: Clear Ascult./Percussion - Airway Airway: Non-obstructed - Cardiovascular Regular Rate - Mental Status Mental Status: Alert & Oriented, Answers Appropriately - Pain Pain Scale: 0 Pain Scale used: Numeric (1 - 10) - Nausea Vomiting Nausea Vomiting: Not Present - Hydration Hydration: Ice chips, Koehler catheter Notes: 12/29/17 20:[address] Do not remove unless approved by anesthesia. - Discharge PostOp Status: Transfer Patient to floor
[2017-12-29] MEDS: *HR* OxyCODONE Immed Rel 5 MG TABLET PO PRN (21:27)
[2017-12-29] MEDS: Gabapentin 400 MG CAPSULE PO SCH (21:27)
[2017-12-29] MEDS ORDERED: Insulin LISPRO 300 UNITS/3 ML VIAL SQ SCH (21:39)
[2017-12-29] MEDS ORDERED: *HR* Dextrose 50 % in Water (Syg) 50 ML SYRINGE IVP PRN (22:48)
[2017-12-29] MEDS ORDERED: Dextrose Gel 15 GM/37.5 ML TUBE PO PRN ×2 (22:48)
[2017-12-29] MEDS ORDERED: D5% in Water 1,000 ML IVC PRN (22:48)
[2017-12-29] MEDS: Insulin DETEMIR 100 UNIT/ML X5UNITS SQ SCH (23:14)
[2017-12-30] MEDS: Insulin DETEMIR 100 UNIT/ML X5UNITS SQ SCH (00:49)
[2017-12-30 04:12] LABS: Basophils % 0.1 %; Hematocrit 30.3 % (37.5-50.1); Hemoglobin 10.2 g/dL (12.9-16.9); Immature Granulocytes % 1.7 % (0-4); Immature Platelets 4.1 % (1.1-6.1); Lymphocytes # 0.8 K/mcL (0.6-4.6); Lymphocytes % 5.7 %; Mean Corpuscular HGB Conc 33.7 g/dL (31.6-35.5); Mean Corpuscular Hemoglobin 31.2 pg (28.0-33.3); Mean Corpuscular Volume 92.7 fL (83.0-100.0); Mean Platelet Volume 10.5 fL (9.4-12.4); Monocytes # 0.5 K/mcL (0.0-1.3); Monocytes % 3.2 %; Neutrophils # 12.8 K/mcL (1.6-8.9); Platelet Count 249 K/mcL (140-400); Red Blood Count 3.27 M/mcL (4.19-5.50); Red Cell Distribution Width 12.9 % (11.5-14.5); Segmented Neutrophils % 89.3 %
[2017-12-30 04:24] LABS: BUN/Creatinine Ratio 28 (6-26); Blood Urea Nitrogen 17 mg/dL (6-20); Calcium 8.8 mg/dL (8.6-10.3); Carbon Dioxide 26 mEq/L (23-29); Chloride 107 mEq/L (98-107); Glucose 183 mg/dL (70-105); Osmolality,Calculated 294 (280-300); Potassium 4.5 mEq/L (3.5-5.1); Sodium 139 mEq/L (136-145); eGFR For African Americans > 60 (> 60); eGFR For Non-African Americans > 60 (> 60)
[2017-12-30] MEDS: *HR* OxyCODONE Immed Rel 5 MG TABLET PO PRN ×2 (05:59→12:02)
[2017-12-30] MEDS ORDERED: INSULIN ASPART SQ SCH (08:00)
[2017-12-30] MEDS: Insulin LISPRO 300 UNITS/3 ML VIAL SQ SCH ×2 (08:04→12:01)
[2017-12-30] MEDS: Gabapentin 400 MG CAPSULE PO SCH (08:04)
[2017-12-30] MEDS ORDERED: (Dapagliflozin Propanediol [Farxiga] 5 MG) PO SCH (09:00)
[2017-12-30] MEDS ORDERED: Furosemide 40 MG TABLET PO SCH (09:00)
[2017-12-30] MEDS ORDERED: Metoprolol XL (24 HR) Succ 50 MG TAB.ER.24H PO SCH (09:00)
--- NOTE | 2017-12-30 11:00 | Anesthesia Progress Note ---
Date of Encounter: 12/30/17 Time of Encounter: 10:45 Anesthesia Note - Note Note: 12/30/17 10:59 Epidural pulled, tip intact, site clean
[2017-12-30 11:21] VITALS: BP 108/63
--- NOTE | 2017-12-30 18:19 | Vascular/Endovas Progress Note ---
Date of Encounter: 12/30/17 Time of Encounter: 08:00 - Assessment and plan (1) Diabetes Status: Chronic Patient has long-standing diabetes with multiple complications. 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 Qualifiers: Heart failure chronicity: chronic Qualified Code(s): I50.32 - Chronic diastolic (congestive) heart failure (3) Hypertension Status: Chronic Patient has history of hypertension Qualifiers: Hypertension type: unspecified Qualified Code(s): I10 - Essential (primary ) hypertension (4) Ischemic foot ulcer due to atherosclerosis of [place] artery of limb Status: Acute Patient has severe left lower extremity vascular occlusive disease. This involves the superficial femoral, popliteal, and diffuse tibial vessels. He is now postoperative day #1 status post a left femoral to posterior tibial artery in situ saphenous vein bypass graft. The bypass graft is functioning well. He has an excellent Doppler signal. He has a warm left foot. His symptoms are improved. He has an easily palpable pulse along the course of the in situ saphenous vein in the mid thigh and distal thigh area. Patient was given instructions to wait for his to bring his boot to the hospital when he may begin ambulation. I anticipate the patient may be discharged later today if he remains stable. All questions were answered. - Subjective Interval history: Patient is postoperative day #1 following a left femoral to posterior tibial artery in situ saphenous vein bypass graft. The patient had an uneventful night. He has no complaints. He states his left foot and left calf are feeling significantly better than preoperatively. - Physical Examination General: Present: Conversant, No Apparent Distress, Well developed, Well nourished HEENT: Present: Atraumatic Vascular: Present: Normal capillary refill, Color/Temperature (Left foot is warm and pink), Surgical incisions (Left lower extremity surgical incisions are covered with dry and clean dressings.), Other (Patient has multiphasic posterior tibial signal at the ankle. Patient has strong Doppler signal between the first and second toe webspace area. There is no Doppler signal over the dorsalis pedis artery at this time.). Absent: Cyanosis Abdomen: Present: Soft - VTE Documentation of Mechanical Device: Intermittent pneumatic compression device Results 12/30/17 03:41 12/30/17 03:41 Lab Results, Last 24 hours 12/30/17 12/30/17 03:41 03:41 WBC 14.3 H D Hgb 10.2 L Hct 30.3 L Plt Count 249 Sodium 139 Potassium 4.5 Chloride 107 Carbon Dioxide 26 BUN 17 Creatinine 0.60 L Glucose 183 H Calcium 8.8 Consult Discharge Plan - Plan Referrals: Yvette Madden [Advanced Practice Nurse] - 01/06/18 8:00 am () Rajan Trammell MD [Partnered Physician] - 01/20/18 9:45 am
--- NOTE | 2017-12-30 18:23 | Event Note ---
Date of Encounter: 12/30/17 Time of Encounter: 18:22 I was paged by the staff nurse early this afternoon that the patient did not want to wait until I came to see the patient on my afternoon rounds. The patient insisted upon leaving the hospital at that time at his discretion. This is obviously AGAINST MEDICAL ADVICE. The patient is where this issue and chose to leave. He was advised to stay.
== END 2017-12-30 13:25 | disposition left against medical advice (07) | DRG 253 ==
LOC: SAMDAY 08:41 → 2NNU 19:42
PROVIDERS: ADMIT Surgery Vascular Surgery; ATTEND Surgery Vascular Surgery

== ENCOUNTER 2018-01-05 09:16 | Inpatient (IN) ==
[2018-01-05] MEDS ORDERED: Ondansetron 4 MG/2 ML VIAL IVP ONE (09:25)
[2018-01-05] MEDS ORDERED: *HR* FentaNYL (PF) 100 MCG/2 ML VIAL IVP ONE (09:25)
--- NOTE | 2018-01-05 09:54 | Emergency Department Note ---
Disposition Clinical Impression: Ischemia of left lower extremity, Tobacco abuse, Hyperglycemia, Non compliance with medical treatment Disposition: Admitted As Inpatient Condition: Fair Time of Disposition: 11:47 Extremity Problem HPI - General Chief complaint: ED Extremity Problem,Nontraumatic Stated complaint: no movement in left leg Time Seen by Provider: 01/05/18 09:24 Source: patient, EMS Limitations: no limitations Nursing Notes Reviewed: Yes Vital Signs Reviewed: Yes - History of Present Illness HPI Narrative: 52-year-old male presents ED because of left leg pain. He has history of peripheral vascular disease and nonhealing diabetic wounds. He has already undergone amputation of the right forefoot. Last week he underwent attempted revascularization of the left leg per Dr. Trammell. He improved postoperatively and was discharged home. He resumed his normal habit of smoking and has since had poor glycemic control. He now has 2 days of increasing pain involving the entire lower extremity with stiffness of the muscles. Unable to ambulate. Pt Subjective Complaint: extremity pain Onset (ago): day(s) Consistency: constant Injury Location: left Pain Scale: 8 Quality: aching, sharp Radiation: distal Improves with: nothing Worsens with: range of motion, weight bearing, walking Associated symptoms: Denies: chest pain, shortness of breath - Related Data Home Medications Medication Instructions Recorded Confirmed Atorvastatin Calcium [Lipitor] 80 mg PO HS 12/22/17 01/05/18 Dapagliflozin Propanediol [Farxiga] 5 mg PO DAILY 12/22/17 01/05/18 Furosemide [Lasix] 40 mg PO DAILY 12/22/17 01/05/18 Gabapentin [Neurontin] 800 mg PO TID 12/22/17 01/05/18 Insulin ASPART [Novolog Flexpen] 0 - 20 units SQ TIDWM 12/22/17 01/05/18 Insulin Glargine,Hum.rec.anlog 50 units SQ HS 12/22/17 01/05/18 [Lantus Solostar] Lisinopril [Zestril] 5 mg PO DAILY 12/22/17 01/05/18 Metoprolol Succinate [Toprol Xl] 50 mg PO DAILY 12/22/17 01/05/18 OxyCODONE/APAP 7.5/325 [Percocet 1 tab PO QID PRN 12/22/17 01/05/18 7.5/325 MG] clonazePAM [Klonopin] 1 mg PO TID PRN 12/22/17 01/05/18 Allergies Allergy/AdvReac Type Severity Reaction Status Date / Time hydrocodone AdvReac Itching Verified 12/22/17 20:27 pregabalin [From Lyrica] AdvReac Itching Verified 12/22/17 20:27 All systems ED: reviewed and negative except as stated. Constitutional: Denies: fever, chills Respiratory: Denies: dyspnea Past Medical History - Past Medical History Attestation: Yes The following information was validated with the patient. Medical history: Reports: atrial fibrillation, CHF, diabetes, hyperlipidemia, hypertension, other Surgical history: Reports: other Psychiatric history: Reports: anxiety - Social History Smoking Status: Current every day smoker Smokeless Tobacco Status: No Alcohol use: Reports: occasionally Drug use: Reports: none, other Physical Exam - General Limitations: no limitations General appearance: alert, in no apparent distress - Head Head exam: atraumatic, normocephalic - Eye Eye exam: Present: normal appearance, PERRL - ENT ENT exam: normal exam, normal oropharynx - Neck Neck exam: Present: normal inspection - Respiratory Respiratory exam: Absent: normal lung sounds bilaterally - Abdominal Exam Abdominal exam: Present: soft, Non-Tender - Expanded Lower Extremity Exam Lower leg exam: Present: other (Healing surgical scars in the medial aspect of the left lower extremity. No abnormal erythema or purulence. Foot is relatively controlled intact. There is a nonhealing decubitus ulcer on the lateral aspect of the left foot. Dorsal pedal and posterior tibial pulses are nonpalpable. Capillary refill was 5 seconds.) Neurovascular/Tendon exam: Present: pulse deficit. Absent: normal capillary refill - Neurological Exam Neurological exam: Present: alert, oriented X3 - Psychiatric Psychiatric exam: Present: normal affect, normal mood - Skin Skin exam: Present: warm, dry Course - Reevaluation(s) Reevaluation #1: Unable to identify pedal pulses by Doppler. We will proceed with FARAZ Time: 09:56 Reevaluation #2: FARAZ on the right leg is 0.66, FARAZ on the left leg is 0.51. Discussed with his surgeon Dr. Trammell and the plan will be to amputate of the patient's willingness to the hospital. He apparently left AMA on his previous visit. I discussed this with the patient and the Patient is willing to stay and willing to undergo amputation. He understands and agrees to be in the hospital for the 3-4 days needed for treatment. Time: 11:42 Vital Signs Temperature 98.7 F 01/05/18 09:18 Pulse Rate 84 01/05/18 09:18 Respiratory Rate 18 01/05/18 09:18 Blood Pressure 124/78 01/05/18 09:18 O2 Sat by Pulse Oximetry 99 01/05/18 09:18 Temperature 98.7 F 01/05/18 09:18 Pulse Rate 84 01/05/18 09:18 Respiratory Rate 18 01/05/18 12:50 Blood Pressure 113/63 01/05/18 12:50 O2 Sat by Pulse Oximetry 99 01/05/18 09:18 Oxygen Delivery Oxygen Delivery Room Air Extremity Problem, Nontraumati - Lab Data Result diagrams: 01/05/18 10:08 01/05/18 10:08 Lab Results 01/05/18 01/05/18 01/05/18 Range/Units 10:08 10:08 10:08 WBC 12.0 H (4.3-11.1) K/mcL RBC 3.65 L (4.19-5.50) M/mcL Hgb 11.1 L (12.9-16.9) g/dL Hct 33.3 L (37.5-50.1) % MCV 91.2 (83.0-100.0) fL MCH 30.4 (28.0-33.3) pg MCHC 33.3 (31.6-35.5) g/dL RDW 12.8 (11.5-14.5) % Plt Count 253 (140-400) K/mcL MPV 10.3 (9.4-12.4) fL Immature Gran % 0.7 (0-4) % Seg Neutrophils % 78.3 % Lymphocytes % 14.7 % Monocytes % 5.1 % Eosinophils % 0.9 % Basophils % 0.3 % Neutrophils # 9.4 H (1.6-8.9) K/mcL Lymphocytes # 1.8 (0.6-4.6) K/mcL Monocytes # 0.6 (0.0-1.3) K/mcL Eosinophils # 0.1 (0.0-0.6) K/mcL Basophils # 0.0 (0.0-0.2) K/mcL PT 13.1 H (9.4-12.1) Seconds INR 1.2 APTT 32.7 (26.0-36.0) Seconds Sodium 135 L (136-145) mEq/L Potassium 4.8 (3.5-5.1) mEq/L Chloride 102 (98-107) mEq/L Carbon Dioxide 26 (23-29) mEq/L BUN 16 (6-20) mg/dL Creatinine 0.60 L (0.70-1.30) mg/dL Est GFR ( Amer) > 60 (> 60) Est GFR (Non-Af Amer) > 60 (> 60) BUN/Creatinine Ratio 27 H (6-26) Glucose 248 H (70-105) mg/dL Calculated Osmolality 289 (280-300) Calcium 9.4 (8.6-10.3) mg/dL
[2018-01-05 10:21] LABS: Basophils % 0.3 %; Eosinophils # 0.1 K/mcL (0.0-0.6); Eosinophils % 0.9 %; Hematocrit 33.3 % (37.5-50.1); Hemoglobin 11.1 g/dL (12.9-16.9); Immature Granulocytes % 0.7 % (0-4); Lymphocytes # 1.8 K/mcL (0.6-4.6); Lymphocytes % 14.7 %; Mean Corpuscular HGB Conc 33.3 g/dL (31.6-35.5); Mean Corpuscular Hemoglobin 30.4 pg (28.0-33.3); Mean Corpuscular Volume 91.2 fL (83.0-100.0); Mean Platelet Volume 10.3 fL (9.4-12.4); Monocytes # 0.6 K/mcL (0.0-1.3); Monocytes % 5.1 %; Neutrophils # 9.4 K/mcL (1.6-8.9); Platelet Count 253 K/mcL (140-400); Red Blood Count 3.65 M/mcL (4.19-5.50); Red Cell Distribution Width 12.8 % (11.5-14.5); Segmented Neutrophils % 78.3 %
[2018-01-05 10:38] LABS: INR 1.2; Prothrombin Time 13.1 Seconds (9.4-12.1)
[2018-01-05 10:40] LABS: Activated Partial Thrombo Time 32.7 Seconds (26.0-36.0)
[2018-01-05 10:48] LABS: BUN/Creatinine Ratio 27 (6-26); Blood Urea Nitrogen 16 mg/dL (6-20); Calcium 9.4 mg/dL (8.6-10.3); Carbon Dioxide 26 mEq/L (23-29); Chloride 102 mEq/L (98-107); Glucose 248 mg/dL (70-105); Osmolality,Calculated 289 (280-300); Potassium 4.8 mEq/L (3.5-5.1); Sodium 135 mEq/L (136-145); eGFR For African Americans > 60 (> 60); eGFR For Non-African Americans > 60 (> 60)
[2018-01-05] MEDS ORDERED: 0.9 % Sodium Chloride 1,000 ML IVC SCH ×2 (11:45→21:53)
[2018-01-05] MEDS ORDERED: Nicotine 14 MG PATCH.TD24 TD SCH (12:00)
[2018-01-05] MEDS ORDERED: Naloxone 0.4 MG/ML INJ IVP PRN ×2 (12:50→21:53)
[2018-01-05] MEDS ORDERED: Dextrose Gel 15 GM/37.5 ML TUBE PO PRN ×4 (12:57→21:53)
[2018-01-05] MEDS ORDERED: D5% in Water 1,000 ML IVC PRN ×2 (12:57→21:53)
[2018-01-05] MEDS ORDERED: *HR* Dextrose 50 % in Water (Syg) 50 ML SYRINGE IVP PRN ×2 (12:57→21:53)
--- NOTE | 2018-01-05 13:05 | Internal Med History&Physical ---
<Maya Peres - Last Filed: 01/05/18 13:33> Date of Encounter: 01/05/18 Time of Encounter: 13:02 Internal Medicine - H&P: HPI Chief complaint: Left lower ext pain Admitted From: Home Plans for Post Hospital Care: [facility] (Patient requests to go to [place] for recovery/rehab) History of present illness: Mr. Taylor is a 52 year old male who presents with LLE pain for the past 2 days. The patient has hx of PVD, DM, current smoker, diastolic HF, AFIB, and amputation of right forefoot. The patient was here last Thursday for revascularization of the left lower ext and was apparently doing well and was discharged home. Surgery, Dr. Trammell was notified of admission in the ED. The patient left foot warm, however no pedal pulses are palpable at this time. He indicated that he resumed his daily cigarette smoking and non-diabetic diet. He reports that his bs is 110's in he morning and then once he starts eating it is in the 200-300's most of the day. He noticed the foot/leg becoming increasingly painful and he indicated that he was unable to bear weight after that [point. The patient initially asked for DR. Palomino to perform the surgery, but sonce he was made aware that Dr. Palomino did not do this surgery, he then agreed to have Dr. Trammell perform it. The patient is NPO , and plans for amputation of left leg /foot. BS is 248, with no food intake today. The wbc is 12.0. the patient right foot/heel with a necrotic non-healing ulcer, that is EMMIE. The patient indicated that he does not have anyone following up on this area outpatient and he has taken horse atb's to heal it in the past. The right foot currently has a foull odor. Past Med Surg Social Fam HX - Past Medical History Medical history: atrial fibrillation, CHF, diabetes, hyperlipidemia, hypertension, other Additional medical history: cystic fibrosis Psychiatric history: anxiety - Past Surgical History Surgical History: other Additional surgical history: right toes amputation - Social History Smoking Status: Current every day smoker Smokeless Tobacco Status: No Alcohol use: occasionally Drug use: none, other - Family History Mother Living Status: Hx Family Cardiac Disorders: Yes Hx Family Respiratory Disorders: Yes Hx Family Cancer: Yes Hx Family GI Disorders: No Hx Family Endocrine Disorder: Yes (Diabetes) Hx Family Neuromuscular Disorders: No Hx Family Neurologic Disorders: No Hx Family HEENT Disorders: No Hx Family Autoimmune Disorders: No Internal Medicine - H&P: Meds Atorvastatin Calcium [Lipitor] 80 mg PO HS 12/22/17 [History] Dapagliflozin Propanediol [Farxiga] 5 mg PO DAILY 12/22/17 [History] Furosemide [Lasix] 40 mg PO DAILY 12/22/17 [History] Gabapentin [Neurontin] 800 mg PO TID 12/22/17 [History] Insulin ASPART [Novolog Flexpen] 0 - 20 units SQ TIDWM 12/22/17 [History] Insulin Glargine,Hum.rec.anlog [Lantus Solostar] 50 units SQ HS 12/22/17 [ History] Lisinopril [Zestril] 5 mg PO DAILY 12/22/17 [History] Metoprolol Succinate [Toprol Xl] 50 mg PO DAILY 12/22/17 [History] OxyCODONE/APAP 7.5/325 [Percocet 7.5/325 MG] 1 tab PO QID PRN 12/22/17 [History] clonazePAM [Klonopin] 1 mg PO TID PRN 12/22/17 [History] 3 Allergy/AdvReac Type Severity Reaction Status Date / Time hydrocodone AdvReac Itching Verified 12/22/17 20:27 pregabalin [From Lyrica] AdvReac Itching Verified 12/22/17 20:27 All Systems PM: A 10-system review of systems was performed and is negative for pertinent findings except as documented above in the HPI. - Constitutional Constitutional: weakness (inability to ambulate d/t pain), no chills, no fever(s ), no night sweats - EENT Eyes: no change in vision, no discharge, no pain, no photophobia Ears: no ear discharge, no ear pain, no tinnitus Nose, mouth and throat: no dysphagia, no nasal discharge, no neck pain, no sore throat - Cardiovascular Cardiovascular ROS IM: no chest pain, no diaphoresis, no dyspnea, no lightheadedness, no palpitations, no syncope - Respiratory Respiratory: no cough, no dyspnea, no wheezing, no excessive phlegm production - Gastrointestinal Gastrointestinal: no abdominal pain, no diarrhea, no hematemesis, no hematochezia, no melena, no nausea, no vomiting - Musculoskeletal Musculoskeletal ROS IM: muscle weakness (LL ext), no numbness, no tingling - Integumentary Integumentary IM: non-healing lesions (right foot), no rash, no unusual bruising - Neurological Neurological ROS: no confusion, no convulsions, no focal weakness, no numbness, no tingling, no tremor(s) - Hematologic/Lymphatic Hematologic/Lymphatic: no easy bruising - Constitutional Vitals: Temp Pulse Resp BP Pulse Ox 98.7 F 84 18 113/63 99 01/05/18 09:18 01/05/18 09:18 01/05/18 12:50 01/05/18 12:50 01/05/18 09:18 General appearance: Present: A&O X 3, answers questions appropriately - Head Head exam: Present: atraumatic, normocephalic - Eye Eye exam: Present: PERRL, conjuntiva pink, sclera anicteric Pupils: Present: PERRL - Neck Neck exam general surgery: Present: supple, trachea midline. Absent: lymphadenopathy - Respiratory Respiratory exam: Present: CTAB. Absent: accessory muscle use, rales, rhonchi, wheezes - Cardiovascular Cardiovascular exam: Present: RRR, +S1, +S2. Absent: diastolic murmur, gallop, rubs, systolic murmur - GI/Abdominal GI/Abdominal exam: Present: normal bowel sounds, soft, no peritoneal signs. Absent: distended, tenderness - Extremities Exam Extremities exam: Present: pedal edema (Nonpitting to left lower ext), tenderness (left lower ext), warm, radial pulses palpable and symmetrical. Absent: calf tenderness, cyanotic - Neurological Exam Neurological exam: Present: CN II-XII intact, oriented X3, no focal deficits. Absent: pronater drift, facial droop, speech deficit - Skin Skin exam: Present: dry, intact, warm (LLE) Internal Med - H&P Results - Labs CBC & Chem 7: 01/05/18 10:08 01/05/18 10:08 - Assessment and plan (1) Ischemia of left lower extremity Current Visit: Yes Status: Acute Assessment and plan: Consult with Dr. Rivas, plan for surgical amputation of left lower ext today. No DVT prophylaxis due to planned surgical procedure and bilat lower ext circulation issues. (2) Hypertension Current Visit: No Status: Acute Qualifiers: Hypertension type: essential hypertension Qualified Code(s): I10 - Essential (primary) hypertension (3) Tobacco abuse Current Visit: Yes Status: Acute Assessment and plan: Smoking cessation Current everyday smoker (4) Hyperglycemia Current Visit: Yes Status: Acute Assessment and plan: History of DM, insulin dependent. bs is uncontrolled at 248. Goal is under 200. Accucheck q6h while npo Moderate humalog insulin coverage. Diabetic education, regarding diet (5) Afib Current Visit: No Status: Chronic Assessment and plan: Hx of A-FIb, will get 12 lead EKG as baseline. Qualifiers: Atrial fibrillation type: paroxysmal Qualified Code(s): I48.0 - Paroxysmal atrial fibrillation - Time Spent With Patient Total time spent is greater than 50% in coordination of care (as documented) at patient's floor/unit and/or counseling patient: <Puja Rudolph - Last Filed: 01/05/18 14:54> Date of Encounter: 01/05/18 Time of Encounter: 13:05 Internal Medicine - H&P: HPI History of present illness: Mr. Taylor is a 52 year old male All Systems PM: A 10-system review of systems was performed and is negative for pertinent findings except as documented above in the HPI. - Constitutional Vitals: Temp Pulse Resp BP Pulse Ox 98.7 F 88 17 120/66 96 01/05/18 09:18 01/05/18 13:38 01/05/18 13:38 01/05/18 13:38 01/05/18 13:38 Internal Med - H&P Results - Labs CBC & Chem 7: 01/05/18 10:08 01/05/18 10:08 - Attending Attestation I examined this patient and my medical decision-making was reviewed with the Nurse Practitioner, Maya Peres. I agree with the documented findings, disposition and treatment plan as described with any changes as documented below. 52-year-old male patient with history of A. fib, peripheral vascular disease, diabetes, hypertension, hyperlipidemia presented here with pain in his left leg. Had undergone bypass surgery one week back. On examination, has decreased pulses in left foot. The left leg is cooler to touch compared to the right. Surgical incisions appear clean Heart sounds are normal. Has prolonged expiratory. No wheezing. Patient also has a decubitus ulcer on the right heel. Prior amputation of toes of the right foot. FARAZ 0.66 on the right and 0.51 on the left. Peripheral vascular disease with possible ischemia involving the left lower extremity status post recent bypass surgery: Vascular surgery has been consulted for evaluation. Patient may need amputation. Will keep nothing by mouth. Patient willing to undergo this procedure here. Diabetes mellitus type 2: Monitor blood sugars closely. Sliding scale insulin. Essential hypertension: Blood pressure is well controlled at this time. We will continue home medications. Tobacco abuse: Patient counseled about cessation. Not willing to consider this at this time. - Time Spent With Patient Total time spent is greater than 50% in coordination of care (as documented) at patient's floor/unit and/or counseling patient:
[2018-01-05] MEDS ORDERED: *HR* FentaNYL (PF) 100 MCG/2 ML VIAL ONE (17:22)
[2018-01-05] MEDS ORDERED: Lidocaine -MPF 2% 2 ML VIAL ONE (17:23)
[2018-01-05] MEDS ORDERED: Ondansetron 4 MG/2 ML VIAL ONE (17:23)
[2018-01-05] MEDS ORDERED: Dexamethasone 4 MG/ML VIAL ONE (17:23)
[2018-01-05] MEDS ORDERED: Morphine Sulfate/PF 5mg/10mL Vial ONE (17:51)
--- NOTE | 2018-01-05 17:51 | Anesthesia Evaluation PreOp ---
Date of Encounter: 01/05/18 Time of Encounter: 17:50 - Past History Planned Operation: Left BKA Cardiac History: HTN, Hyperlipidemia, Arrhythmia, Pacemaker/ICD, Other (PVD) Pulmonary History: Smoker, Other (cystic fibrosis) IT APPLICATIONS ANALYST History: Denies Any Significant HX Other Medical History: Diabetes Type II Anesthesia History: No Prior Anesthetic Complications Alcohol Use: occasionally Drug use: none, other Medications and Allergies Atorvastatin Calcium [Lipitor] 80 mg PO HS 12/22/17 [History] Dapagliflozin Propanediol [Farxiga] 5 mg PO DAILY 12/22/17 [History] Furosemide [Lasix] 40 mg PO DAILY 12/22/17 [History] Gabapentin [Neurontin] 800 mg PO TID 12/22/17 [History] Insulin ASPART [Novolog Flexpen] 0 - 20 units SQ TIDWM 12/22/17 [History] Insulin Glargine,Hum.rec.anlog [Lantus Solostar] 50 units SQ HS 12/22/17 [ History] Lisinopril [Zestril] 5 mg PO DAILY 12/22/17 [History] Metoprolol Succinate [Toprol Xl] 50 mg PO DAILY 12/22/17 [History] OxyCODONE/APAP 7.5/325 [Percocet 7.5/325 MG] 1 tab PO QID PRN 12/22/17 [History] clonazePAM [Klonopin] 1 mg PO TID PRN 12/22/17 [History] 3 Allergy/AdvReac Type Severity Reaction Status Date / Time hydrocodone AdvReac Itching Verified 12/22/17 20:27 pregabalin [From Lyrica] AdvReac Itching Verified 12/22/17 20:27 - Meds/Allergy Pre-op Review Medications Reviewed: Yes Allergies Reviewed: Yes Beta Blockers on Current Med List: No Anesthesia Results - Labs 01/05/18 10:08 01/05/18 10:08 - Imaging EKG: report reviewed (Electronic Pacemaker) Additional studies: ECHO EF 55%, no aortic stenosis, no pulm htn Anesthesia Exam O2 Sat Height 1.73 m Weight 86 kg Weight 88.904 kg O2 Sat by Pulse Oximetry 96 O2 Sat by Pulse Oximetry 99 Vital Signs Temp Pulse Resp BP Pulse Ox 98.7 F 84 18 124/78 99 01/05/18 09:18 01/05/18 09:18 01/05/18 09:18 01/05/18 09:18 01/05/18 09:18 Height: 5'8 Weight: 189 lbs NPO (# of Hours): MN Pain Scale: 0 - HEENT Pupil (Motor): Pupils equal, EOMI Mallampati: II Teeth: Edentulous Oral Opening: Greater than 3 - IT APPLICATIONS ANALYST LOC: Oriented IT APPLICATIONS ANALYST Motor: Normal RUE, Normal LUE, Normal RLE, Normal Face, Deficit LLE IT APPLICATIONS ANALYST Sensory: Normal: RUE, LUE, RLE, Face, Deficit: LLE - Cardiac Rhythm: Regular Murmur: None JVD: No Carotid Bruit: No - Pulmonary Breath Sounds: bilateral Clear Respiratory Effort: Symmetrical Anesthesia Assess/Plan ASA Score: 3 (HTN PVD COPD DM) Modified Mariluz Scale for Level of Consciousness: Cooperative, oriented, and tranquil Anesthetic Plan: Regional Monitoring Plan: Standard Monitors Recovery Plan: PACU (Discussed SAB, possible GA, agrees to proceed)
[2018-01-05] MEDS ORDERED: Insulin LISPRO 300 UNITS/3 ML VIAL SQ SCH (18:00)
--- NOTE | 2018-01-05 18:01 | Vascular/[facility] Progress Note ---
Date of Encounter: 01/05/18 Time of Encounter: 16:15 - Assessment and plan (1) Diabetes Current Visit: No Status: Chronic Patient has poorly controlled diabetes. 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 (3) Ischemia of left lower extremity Current Visit: Yes Status: Acute Recurrent ischemia of left lower extremity with occlusion of in situ saphenous vein bypass graft after review of the patient's clinical state and his persistent symptoms and nonhealing ulcer that has followed her the patient has requested amputation. He is a poor candidate for further revascularization and so he now comes to the operating room for left [id number] amputation. We discussed above-knee versus below-knee levels of amputations with potential risks and benefits with each level of amputation. The patient wishes to proceed with a [id number] amputation. (4) Non compliance with medical treatment Current Visit: Yes Status: Chronic Patient has multiple episodes of noncompliance. - Subjective Interval history: Patient presented to to the emergency room today because of the onset of a burning sensation of his left lower extremity. The patient is well-known to the vascular surgery service. He had undergone an extensive left femoral to posterior tibial artery in situ saphenous vein bypass graft last week. The patient left AMA on the morning of postoperative day #1. This was his third AMA departure over the past 3 weeks. - Physical Examination General: Present: Conversant, Well developed HEENT: Present: Atraumatic Neck: Absent: JVD Neuro: Present: Alert and responsive, No focal deficits noted Vascular: Present: Pulse, absent, Surgical incisions (Left lower extremity surgical incisions are clean and dry), Other (The patient has a Doppler signal over the posterior tibial artery but there is no palpable pulse over the in situ saphenous vein bypass graft) Results 01/05/18 10:08 01/05/18 10:08 Consult Discharge Plan - Plan Referrals: Yvette Madden [Primary Care Provider] -
[2018-01-05] MEDS ORDERED: Propofol 500 MG/50 ML INFUS..BTL ONE (18:11)
[2018-01-05] MEDS ORDERED: Water for inj. (sterile) 10 ML IV ONE (18:30)
--- NOTE | 2018-01-05 18:45 | Anesthesia Procedures ---
Date of Encounter: 01/05/18 Time of Encounter: 17:57 Procedures: Anesthesia - Epidural/Spinal Patient ID/Chart reviewed: Yes Patient examined: Yes Consent Obtained: Yes Supplemental Oxygen: None/Room Air Sedation: Fentanyl (mcg): 25 Site Prep: Sterile prep and drape, Povidone-Iodine 1% Patient position: upright Local Anesthetic: Lidocaine 1% Amount of Local Anesthetic used: 2 Loading Dose: Other: 300mcg duramorph PF in 2.5cc 0.5% marcaine Interspace Used: L2-L3 Blood: No CSF: Yes Paresthesia: No Spinal Needle Gauge: 22 Spinal Dose: 2.5cc 0.5% marcaine w/ 0.6mL (300mcg) PF duramorph Procedure: sitting upright in OR2, sterile prep/drape, lido to L2-3, neg heme, neg paresthesia, + CSF, clear, free flow, smooth injection of spinal dose, pt assisted to supine, tolerated well, no complications.
[2018-01-05] MEDS ORDERED: Ondansetron 4 MG/2 ML VIAL IVP PRN ×3 (18:47→21:53)
--- NOTE | 2018-01-05 20:00 | Operative Note ---
Date of procedure: 01/05/18 Pre-op diagnosis: non healing left foot wound Post-op diagnosis: same Procedure: left below knee amputation Complications: none Anesthesia: MAC, spinal Surgeon: Rajan Trammell Was there an retail assistant present: No Estimated blood loss (cc): 150 Specimen: left BKA Condition: stable Disposition: PACU Procedure in Detail: History Jose Harman and is a 52-year-old white male with a history of poorly controlled diabetes and profound peripheral vascular occlusive disease. He has nonhealing ulcer of his left foot. He had undergone a left femoral to posterior tibial in situ saphenous vein bypass graft last week. The patient had checked the hospital on postoperative day #1 AGAINST MEDICAL ADVICE. This is the third time in 3 weeks he had left the hospital AMA. He now returns to the emergency room earlier today with acute onset of left lower extremity burning. The patient is concerned because of lack of improvement. I evaluated the patient and found his bypass graft to be thrombosed. We discussed potential treatment options. He is not a candidate for revision of his bypass graft or thrombectomy and so the patient now wishes to proceed with amputation at this time. Procedure After informed consent was obtained the patient was taken the operating room. Spinal anesthesia was established supplemented with M before meals anesthesia. The left lower extremity was sterilely prepped and draped. The left foot was placed in isolation bag. A timeout protocol was observed. A posterior flap incision was then made. Dissection was carried circumferentially to and through the fascia. Dissection was then carried through the individual compartments with identification and ligation of the neurovascular structures. The muscle all appeared friable. There were no signs of infection. The in situ saphenous vein found on the medial aspect of the calf was thrombosed. The periosteum was raised on the fibula and the tibia. A small section of the fibula was resected. Then the periosteum was further raised on the tibia and the tibia was divided with the sagittal saw. The edges of the tibia were then inspected for any residual debris or rough edges. The wound was copiously irrigated with antibiotics. The wound was then closed in layers using absorbable suture. Tegan were used for the skin. A bulky dry dressing was then applied to the left leg. This was secured with Kerlix roll and Ramon wrap. The patient was then transported from the operating room to the recovery room in stable condition. There were no intraoperative complications.
--- NOTE | 2018-01-05 21:33 | Event Note ---
Date of Encounter: 01/05/18 Time of Encounter: 21:30 The patient in need of DVT prophylaxis, however was unable to provide due to surgery, right foot wound and left foot/leg ischemia. Will need to be re- evaluated in am.
--- NOTE | 2018-01-05 21:46 | Anesthesia Evaluation Post Op ---
Date of Encounter: 01/05/18 Time of Encounter: 20:22 Notes: Patient's vital signs have been reviewed. Patient is stable postoperatively and has adequately recovered from anesthesia. Patient is determined to have stable airway patency and respiratory function including respiratory rate and oxygen saturation. Patient has a stable heart rate, blood pressure and adequate hydration. Patients mental status is acceptable. Patients temperature is appropriate. Pain and nausea are adequately controlled. - Discharge PostOp Status: Transfer Patient to floor
[2018-01-05] MEDS: clonazePAM 1 MG TABLET PO PRN (23:00)
[2018-01-05] MEDS: *HR* OxyCODONE/APAP 7.5/325 TABLET PO PRN (23:01)
[2018-01-06] MEDS: Insulin DETEMIR 100 UNIT/ML X5UNITS SQ SCH ×2 (00:02→21:39)
[2018-01-06] MEDS: Gabapentin 400 MG CAPSULE PO SCH ×4 (00:02→21:37)
[2018-01-06] MEDS: Insulin LISPRO 300 UNITS/3 ML VIAL SQ SCH ×4 (00:22→16:26)
[2018-01-06] MEDS: clonazePAM 1 MG TABLET PO PRN ×3 (04:36→21:36)
[2018-01-06] MEDS: *HR* OxyCODONE/APAP 7.5/325 TABLET PO PRN ×4 (04:36→21:37)
[2018-01-06] MEDS ORDERED: Insulin LISPRO 300 UNITS/3 ML VIAL SQ SCH ×2 (08:00→21:00)
[2018-01-06] MEDS: Nicotine 14 MG PATCH.TD24 TD SCH (08:15)
[2018-01-06] MEDS: Metoprolol XL (24 HR) Succ 50 MG TAB.ER.24H PO SCH (08:18)
[2018-01-06] MEDS: Furosemide 40 MG TABLET PO SCH (08:18)
[2018-01-06] MEDS ORDERED: FARXIGA PO SCH (09:00)
--- NOTE | 2018-01-06 12:58 | Vascular/Endovas Progress Note ---
Date of Encounter: 01/06/18 Time of Encounter: 08:15 - Assessment and plan (1) Diabetes Current Visit: No Status: Chronic Patient has history of poorly controlled diabetes. Qualifiers: Diabetes mellitus type: type 2 Diabetes mellitus prison insulin use: with prison use Diabetes mellitus complication status: with circulatory complication Diabetes mellitus complication detail: with other circulatory complications Qualified Code(s): E11.59 - Type 2 diabetes mellitus with other circulatory complications; Z79.4 - long-term (current) use of insulin (2) Ischemic foot ulcer due to atherosclerosis of [place] artery of limb Current Visit: Yes Status: Acute Patient has advanced ischemia of the left lower extremity with multilevel arterial occlusive disease identified on angiogram performed earlier this month. He is postoperative day #1 following left qdwpg-[id number] amputation. (3) Ischemia of left lower extremity Current Visit: Yes Status: Acute Postop day #1 following a left BKA. Patient will be evaluated by social service , physical therapy, and occupational therapy for transfer to inpatient rehabilitative services later this week. (4) Non compliance with medical treatment Current Visit: Yes Status: Chronic Patient has multiple episodes of noncompliance. - Subjective Interval history: Patient is postoperative day #1 following left BKA. The patient has no complaints. Patient states his left leg pain is now resolved. His pain control has been adequate with medications following surgery. Vital Signs, Last 4 Hours Temp Pulse Resp BP Pulse Ox 01/06/18 11:44 97.9 F 88 18 129/70 97 - Physical Examination General: Present: Conversant, No Apparent Distress HEENT: Present: Atraumatic Neck: Absent: JVD Neuro: Present: Alert and responsive, No focal deficits noted Vascular: Present: Amputation(s) (Left BKA dressing is intact.) Skin: Present: No rashes noted on visualized skin - VTE Documentation of Mechanical Device: Intermittent pneumatic compression device Results 01/05/18 10:08 01/05/18 10:08 Consult Discharge Plan - Plan Referrals: Yvette Madden [Primary Care Provider] - Rajan Trammell MD [Partnered Physician] - (Follow-up with Dr. Trammell in 6 weeks for amputation site evaluation and staple removal.)
--- NOTE | 2018-01-06 13:04 | Internal Med Progress Note ---
<KeziaDangelo bro - Last Filed: 01/06/18 12:59> Date of Encounter: 01/06/18 Time of Encounter: 12:59 - Assessment and plan (1) Ischemia of left lower extremity Current Visit: Yes Status: Acute Assessment and plan: Patient is postop day 1 status post left below the knee amputation. Seems to be recovering well. He is working with physical therapy and occupational therapy. They have recommended that he transition to inpatient rehabilitation at discharge which the patient is agreeable to. rehabilitation services counselor consult is pending. Further management per vascular surgery. (2) Diabetes Current Visit: No Status: Chronic Assessment and plan: Orally controlled. Blood sugars are elevated on presentation. Continue Levemir 50 units subcutaneous at bedtime and sliding scale to moderate dose. Continue to monitor patient's blood sugars and insulin requirements and adjust as necessary. Qualifiers: Diabetes mellitus type: type 2 Diabetes mellitus mcfp insulin use: with middle or intermediate school principal use Diabetes mellitus complication status: with circulatory complication Diabetes mellitus complication detail: with other circulatory complications Qualified Code(s): E11.59 - Type 2 diabetes mellitus with other circulatory complications; Z79.4 - halfway (current) use of insulin (3) Diastolic CHF Current Visit: No Status: Chronic Assessment and plan: No evidence of acute exacerbation. Patient's maintenance fluids have been discontinued. Continue Lasix, beta anastacia. Qualifiers: Heart failure chronicity: chronic Qualified Code(s): I50.32 - Chronic diastolic (congestive) heart failure (4) Tobacco abuse Current Visit: Yes Status: Acute Assessment and plan: Continue to encourage cessation given the patient's peripheral Emely disease. (5) Anxiety Current Visit: Yes Status: Acute Assessment and plan: Continue home clonazepam 1 mg 3 times a day when necessary. (6) Hypertension Current Visit: No Status: Chronic Assessment and plan: Blood pressure under good control. Continue Lasix, metoprolol. Qualifiers: Hypertension type: unspecified Qualified Code(s): I10 - Essential (primary ) hypertension (7) DVT prophylaxis Current Visit: No Status: Acute Assessment and plan: We will start Lovenox 40 mg subcutaneous twice a day tomorrow. (8) Chronic pain Current Visit: Yes Status: Acute Assessment and plan: Patient has chronic pain in his lower extremities. He reports that his pain is not well controlled after surgery. He normally takes Percocet 7.5 4 times a day at home. He reports that the pain medication helps but does not last long enough to control his pain. Given his recent surgery will increase to every 4 hours [facility]. Continue gabapentin. Qualifiers: Chronic pain type: other chronic pain Qualified Code(s): G89.29 - Other chronic pain - Time Spent With Patient Total time spent is greater than 50% in coordination of care (as documented) at patient's floor/unit and/or counseling patient: - Subjective Interval history: Patient seen and examined at bedside. Patient states that he feels okay this morning. He reports pain in his left leg at his stump. He states the pain medicine helps for a short amount of time but it wears off after about 4 hours. Otherwise he is minimal complaints. He is been up moving around and working with physical therapy. - Constitutional Vitals: Temp Pulse Resp BP Pulse Ox 97.9 F 88 18 129/70 97 01/06/18 11:44 01/06/18 11:44 01/06/18 11:44 01/06/18 11:44 01/06/18 11:44 General appearance: Present: A&O X 3, answers questions appropriately - Respiratory Respiratory exam: Present: CTAB. Absent: rales, rhonchi, wheezes - Cardiovascular Cardiovascular exam: Present: RRR. Absent: gallop, rubs, systolic murmur - GI/Abdominal GI/Abdominal exam: Present: normal bowel sounds, soft. Absent: distended, tenderness - Extremities Exam Additional comments: Iufli-sfm-[id number] amputation of left lower extremity. Dressing applied to this area. Dressing clean dry and intact. Transmetatarsal amputation of the toes of the right lower extremity. - Neurological Exam Neurological exam: Present: alert, CN II-XII intact, oriented X3, no focal deficits Internal Medicine: Result - Labs CBC & Chem 7: 01/05/18 10:08 01/05/18 10:08 - ABG Interpretation ABG results: PT/INR, D-dimer PT 13.1 Seconds (9.4-12.1) H 01/05/18 10:08 - VTE Documentation of Mechanical Device: Intermittent pneumatic compression device Consult Discharge Plan - Plan Referrals: Yvette Madden [Primary Care Provider] - Rajan Trammell MD [Partnered Physician] - (Follow-up with Dr. Trammell in 6 weeks for amputation site evaluation and staple removal.) <Modesto Ureña - Last Filed: 01/06/18 13:10> Date of Encounter: 01/06/18 - Assessment and plan (1) Diabetes Current Visit: No Status: Chronic Qualifiers: Diabetes mellitus type: type 2 Diabetes mellitus mcfp insulin use: with middle or intermediate school principal use Diabetes mellitus complication status: with circulatory complication Diabetes mellitus complication detail: with other circulatory complications Qualified Code(s): E11.59 - Type 2 diabetes mellitus with other circulatory complications; Z79.4 - terminal worker (current) use of insulin (2) DVT prophylaxis Current Visit: No Status: Acute (3) Tobacco abuse Current Visit: Yes Status: Acute (4) Diastolic CHF Current Visit: No Status: Chronic Qualifiers: Heart failure chronicity: chronic Qualified Code(s): I50.32 - Chronic diastolic (congestive) heart failure (5) Hypertension Current Visit: No Status: Chronic Qualifiers: Hypertension type: unspecified Qualified Code(s): I10 - Essential (primary ) hypertension (6) Ischemia of left lower extremity Current Visit: Yes Status: Acute (7) Anxiety Current Visit: Yes Status: Acute (8) Chronic pain Current Visit: Yes Status: Acute Qualifiers: Chronic pain type: other chronic pain Qualified Code(s): G89.29 - Other chronic pain - Time Spent With Patient Total time spent is greater than 50% in coordination of care (as documented) at patient's floor/unit and/or counseling patient: - Constitutional Vitals: Temp Pulse Resp BP Pulse Ox 97.9 F 88 18 129/70 97 01/06/18 11:44 01/06/18 11:44 01/06/18 11:44 01/06/18 11:44 01/06/18 11:44 Internal Medicine: Result - Labs CBC & Chem 7: 01/05/18 10:08 01/05/18 10:08 - ABG Interpretation ABG results: PT/INR, D-dimer PT 13.1 Seconds (9.4-12.1) H 01/05/18 10:08 - Attending Attestation I performed an independent interview and examine this patient. I agree with the findings, assessment, and plan of Dr. Mendez, internal medicine resident. Patient is currently postop day 1 left below the knee amputation. Doing well. His other issues including diabetes, chronic diastolic CHF, anxiety all appear to be under control. His pain is controlled. General no acute distress Skin warm and dry Lungs are clear Regular rate and rhythm Abdomen is soft nontender Lower extremity has a dressing in place.
[2018-01-07] MEDS: *HR* OxyCODONE/APAP 7.5/325 TABLET PO PRN ×3 (02:35→16:09)
[2018-01-07 02:56] LABS: Basophils % 0.1 %; Eosinophils # 0.1 K/mcL (0.0-0.6); Eosinophils % 0.8 %; Hematocrit 30.3 % (37.5-50.1); Hemoglobin 10.1 g/dL (12.9-16.9); Immature Granulocytes % 0.7 % (0-4); Lymphocytes # 2.4 K/mcL (0.6-4.6); Mean Corpuscular HGB Conc 33.3 g/dL (31.6-35.5); Mean Corpuscular Hemoglobin 30.1 pg (28.0-33.3); Mean Corpuscular Volume 90.4 fL (83.0-100.0); Mean Platelet Volume 10.1 fL (9.4-12.4); Monocytes # 1.1 K/mcL (0.0-1.3); Monocytes % 6.7 %; Neutrophils # 12.1 K/mcL (1.6-8.9); Platelet Count 274 K/mcL (140-400); Red Blood Count 3.35 M/mcL (4.19-5.50); Red Cell Distribution Width 12.9 % (11.5-14.5); Segmented Neutrophils % 76.7 %
[2018-01-07 03:14] LABS: BUN/Creatinine Ratio 24 (6-26); Blood Urea Nitrogen 16 mg/dL (6-20); Calcium 8.9 mg/dL (8.6-10.3); Carbon Dioxide 29 mEq/L (23-29); Chloride 93 mEq/L (98-107); Glucose 115 mg/dL (70-105); Magnesium 1.7 mg/dL (1.6-2.6); Osmolality,Calculated 274 (280-300); Potassium 4.2 mEq/L (3.5-5.1); Sodium 131 mEq/L (136-145); eGFR For African Americans > 60 (> 60); eGFR For Non-African Americans > 60 (> 60)
[2018-01-07] MEDS ORDERED: *HR* Enoxaparin 40 MG/0.4 ML SYRINGE SQ SCH (06:00)
[2018-01-07] MEDS: clonazePAM 1 MG TABLET PO PRN (08:24)
[2018-01-07] MEDS: Furosemide 40 MG TABLET PO SCH (08:24)
[2018-01-07] MEDS: Metoprolol XL (24 HR) Succ 50 MG TAB.ER.24H PO SCH (08:24)
[2018-01-07] MEDS: Nicotine 14 MG PATCH.TD24 TD SCH (08:24)
[2018-01-07] MEDS: Gabapentin 400 MG CAPSULE PO SCH ×2 (08:24→16:09)
[2018-01-07] MEDS: Insulin LISPRO 300 UNITS/3 ML VIAL SQ SCH (08:27)
[2018-01-07] MEDS ORDERED: Bisacodyl 10 MG RECTAL SUPPOSITORY RC ONE (09:37)
--- NOTE | 2018-01-07 10:08 | Podiatry Consult Note ---
Date of Encounter: 01/07/18 Time of Encounter: 08:15 Assessment and Plan (1) Ulcer of foot due to diabetes Current visit: No Status: Acute Necrotic ulceration to the lateral aspect of the right heel, no erythema. No evidence of bacterial infection. Patient had ABIs completed on 01/05/18, right PT with an index of 0.6. Right DP with an index of 0.66. Plan: Start Santyl ointment, apply nickel thick amount externally to ulceration of right foot daily with saline moistened 4x4 guaze, kerlix and tape. Protect right heel with a heel medix boot while in bed. Follow up in wound care 1 week after discharge from hospital. Qualifiers: Diabetes mellitus type: type 2 Laterality: right Qualified Code(s): E11.621 - Type 2 diabetes mellitus with foot ulcer; L97.519 - Non-pressure chronic ulcer of other part of right foot with unspecified severity (2) Peripheral arterial disease Current visit: No Status: Acute (3) S/P below knee amputation Current visit: Yes Status: Chronic Qualifiers: Laterality: left Qualified Code(s): Z89.512 - Acquired absence of left leg below knee History of Present Illness HPI: Mr. Taylor is a 52 year old male admitted to [place] with LLE pain. Patient has a past medical history significant for diabetes mellitus, hypertension, hyperlipidemia, atrial fibrillation, pacemaker/ICD. Patient has a surgical history significant for a transmetatarsal amputation of the right foot with adjacent tissue transfer with flap advancement medially on 02/28/[address] Palomino. Patient is s/p revascularization of the left lower extremity by Dr. Trammell on 12/30/17 and s/p Left BKA on 01/05/18. Podiatry was consulted for ulceration to the right heel. 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 Patient was treated with 6 weeks of IV antibiotics in February of 2016. Patient states he was treated at [facility] for the ulceration on the right foot. Patient states the ulcer turned black last month after he was admitted to [facility]. Patient had ABIs completed on 01/05/18, right PT with an index of 0.6. Right DP with an index of 0.66. Patient states he currently smokes two packs of cigarettes a day and states he has smoked for years. No c/o fever, chills, cp, sob or flu like symptoms. Patient denies pain to the right foot. Patient was scheduled to follow up twice in Podiatry clinic and wound care with Dr. Palomino after his last admission in October of 2017 and no showed for all three of the appointments. Past Med Surg Social Fam HX - Past Medical History Medical history: atrial fibrillation, CHF, diabetes, hyperlipidemia, hypertension, other Additional medical history: cystic fibrosis Psychiatric history: anxiety - Past Surgical History Surgical History: other Additional surgical history: right toes amputation, surgery to LLE - Social History Smoking Status: Current every day smoker Smokeless Tobacco Status: No Alcohol use: occasionally Drug use: none, other - Family History Mother Living Status: Hx Family Cardiac Disorders: Yes Hx Family Respiratory Disorders: Yes Hx Family Cancer: Yes Hx Family GI Disorders: No Hx Family Endocrine Disorder: Yes (Diabetes) Hx Family Neuromuscular Disorders: No Hx Family Neurologic Disorders: No Hx Family HEENT Disorders: No Hx Family Autoimmune Disorders: No Medications and Allergies Atorvastatin Calcium [Lipitor] 80 mg PO HS 12/22/17 [History] Dapagliflozin Propanediol [Farxiga] 5 mg PO DAILY 12/22/17 [History] Furosemide [Lasix] 40 mg PO DAILY 12/22/17 [History] Gabapentin [Neurontin] 800 mg PO TID 12/22/17 [History] Insulin ASPART [Novolog Flexpen] 0 - 20 units SQ TIDWM 12/22/17 [History] Insulin Glargine,Hum.rec.anlog [Lantus Solostar] 50 units SQ HS 12/22/17 [ History] Lisinopril [Zestril] 5 mg PO DAILY 12/22/17 [History] Metoprolol Succinate [Toprol Xl] 50 mg PO DAILY 12/22/17 [History] clonazePAM [Klonopin] 1 mg PO TID PRN 12/22/17 [History] OxyCODONE/APAP 7.5/325 [Percocet 7.5/325 MG] 1 tab PO QID PRN 7 Days #28 tablet 01/07/18 [Rx] 3 Allergy/AdvReac Type Severity Reaction Status Date / Time hydrocodone AdvReac Itching Verified 12/22/17 20:27 pregabalin [From Lyrica] AdvReac Itching Verified 12/22/17 20:27 - Constitutional Constitutional: no fever(s) (no chills, no pain to right foot. ) Physical Exam - Constitutional Vitals: Temp Pulse Resp BP Pulse Ox 98.9 F 96 16 111/55 95 01/07/18 07:26 01/07/18 07:26 01/07/18 07:26 01/07/18 07:26 01/07/18 07:26 Exam: General appearance: alert awake oriented X 3. Calm and pleasant, no acute distress.. Vascular: Right: Unable to palpate pedal pulses of right foot. No evidence of cyanosis, pallor or rubor, Edema graded at 1+/4, Skin Temperature warm, No calf pain with manual compression. capillary refill time is immediate. Neurologic: Sensation intact with light touch to both feet. Musculoskeletal: History of TMA right foot. S/p Left BKA Ulcer: Ulceration to the lateral right heel measuring 1.5 cm in length x 2 cm in width, base of ulcer with 100% eschar, dry and connected, no periwound erythema, no fluctuance, no cellulitis, no warmth, no drainage. Results - Labs Result Diagrams: 01/07/18 02:45 01/07/18 02:45 Labs: Abnormal lab results WBC 15.8 K/mcL (4.3-11.1) H 01/07/18 02:45 RBC 3.35 M/mcL (4.19-5.50) L 01/07/18 02:45 Hgb 10.1 g/dL (12.9-16.9) L 01/07/18 02:45 Hct 30.3 % (37.5-50.1) L 01/07/18 02:45 Neutrophils # 12.1 K/mcL (1.6-8.9) H 01/07/18 02:45 PT 13.1 Seconds (9.4-12.1) H 01/05/18 10:08 Sodium 131 mEq/L (136-145) L 01/07/18 02:45 Chloride 93 mEq/L (98-107) L 01/07/18 02:45 Creatinine 0.67 mg/dL (0.70-1.30) L 01/07/18 02:45 Glucose 115 mg/dL (70-105) H 01/07/18 02:45 POC Glucose 182 mg/dL (70-99) H 01/06/18 15:59 Calculated Osmolality 274 (280-300) L 01/07/18 02:45 H & H 01/07/18 Range/Units 02:45 Hgb 10.1 L (12.9-16.9) g/dL Hct 30.3 L (37.5-50.1) % All other labs normal. Consult Discharge Plan - Plan Additional Instructions: Daily dressing changes to left BKA. Patient to have dry to dry dressing with Kerlix roll and Ramon wrap. Patient to continue physical and occupational therapy. Patient keep the left knee extended. Patient is not to sit in chair with left knee flexed. Referrals: Yvette Madden [Primary Care Provider] - Zbigniew Scott CNP [Advanced Practice Nurse] - Rajan Trammell MD [Partnered Physician] - (Follow-up with Dr. Trammell in 6 weeks for amputation site evaluation and staple removal.) Prescriptions: OxyCODONE/APAP 7.5/325 [Percocet 7.5/325 MG] 1 tab PO QID PRN 7 Days #28 tablet PRN Reason: Pain
--- NOTE | 2018-01-07 12:53 | Vascular/Endovas Progress Note ---
Date of Encounter: 01/07/18 Time of Encounter: 12:50 - Assessment and plan (1) Diabetes Current Visit: No Status: Chronic Patient has history of poorly controlled diabetes. Qualifiers: Diabetes mellitus type: type 2 Diabetes mellitus group home insulin use: with group home use Diabetes mellitus complication status: with circulatory complication Diabetes mellitus complication detail: with other circulatory complications Qualified Code(s): E11.59 - Type 2 diabetes mellitus with other circulatory complications; Z79.4 - [facility] (current) use of insulin (2) Ischemic foot ulcer due to atherosclerosis of [place] artery of limb Current Visit: Yes Status: Acute Patient has advanced ischemia of the left lower extremity with multilevel arterial occlusive disease identified on angiogram performed earlier this month. He is postoperative day #2 following left [id number] amputation. The amputation site is clean and dry. It is healing appropriately. Patient may now begin daily dressing changes. Patient may be discharged to rehabilitation center from vascular surgery perspective. Patient to follow-up in Hematite surgery clinic in 6 weeks. Pepin to remain intact for 6 weeks. (3) Ischemia of left lower extremity Current Visit: Yes Status: Acute Postop day #2 following a left BKA. Patient will be evaluated by social service , physical therapy, and occupational therapy for transfer to inpatient rehabilitative services later this week. (4) Non compliance with medical treatment Current Visit: Yes Status: Chronic Patient has multiple episodes of noncompliance. - Subjective Interval history: Patient is postoperative day #2 following left BKA. The patient has no complaints. Patient states his left leg pain is now resolved. Patient states he has difficulty sleeping. Vital Signs, Last 4 Hours Temp Pulse Resp BP 01/07/18 11:55 98.2 F 92 16 110/51 - Physical Examination General: Present: Conversant, No Apparent Distress HEENT: Present: Atraumatic Vascular: Present: Amputation(s) (Left BKA dressing was removed. Wound was inspected. Flaps are intact. No signs of cyanosis or ischemia. No signs of infection. Flaps are warm with excellent capillary refill.) Skin: Present: No rashes noted on visualized skin - VTE Documentation of Mechanical Device: Intermittent pneumatic compression device Results 01/07/18 02:45 01/07/18 02:45 Lab Results, Last 24 hours 01/07/18 01/07/18 02:45 02:45 WBC 15.8 H Hgb 10.1 L Hct 30.3 L Plt Count 274 Sodium 131 L Potassium 4.2 Chloride 93 L Carbon Dioxide 29 BUN 16 Creatinine 0.67 L Glucose 115 H Calcium 8.9 Magnesium 1.7 Consult Discharge Plan - Plan Additional Instructions: Daily dressing changes to left BKA. Patient to have dry to dry dressing with Kerlix roll and Ramon wrap. Patient to continue physical and occupational therapy. Patient keep the left knee extended. Patient is not to sit in chair with left knee flexed. Referrals: Yvette Madden [Primary Care Provider] - Rajan Trammell MD [Partnered Physician] - (Follow-up with Dr. Trammell in 6 weeks for amputation site evaluation and staple removal.)
--- NOTE | 2018-01-07 15:02 | Physician Discharge Referral ---
ExtendedCare Referral Info Transfer To: [facility] Provider in Charge after Transfer: Other Institutional Level of Care: Skilled Prognosis: Fair Aware of Diagnosis: Patient Aware of Prognosis: Patient - Transfer Medications Home Medications: Atorvastatin Calcium [Lipitor] 80 mg PO HS 12/22/17 [History] Dapagliflozin Propanediol [Farxiga] 5 mg PO DAILY 12/22/17 [History] Furosemide [Lasix] 40 mg PO DAILY 12/22/17 [History] Gabapentin [Neurontin] 800 mg PO TID 12/22/17 [History] Insulin ASPART [Novolog Flexpen] 0 - 20 units SQ TIDWM 12/22/17 [History] Insulin Glargine,Hum.rec.anlog [Lantus Solostar] 50 units SQ HS 12/22/17 [ History] Lisinopril [Zestril] 5 mg PO DAILY 12/22/17 [History] Metoprolol Succinate [Toprol Xl] 50 mg PO DAILY 12/22/17 [History] OxyCODONE/APAP 7.5/325 [Percocet 7.5/325 MG] 1 tab PO QID PRN 12/22/17 [History] clonazePAM [Klonopin] 1 mg PO TID PRN 12/22/17 [History] Allergies/Adverse Reactions: 3 Allergy/AdvReac Type Severity Reaction Status Date / Time hydrocodone AdvReac Itching Verified 12/22/17 20:27 pregabalin [From Lyrica] AdvReac Itching Verified 12/22/17 20:27 - Respiratory Orders Smoking Cessation: Smoking cessation has been advised. For more information, call the [place] Tobacco Quit Line at 8-155-MWBF-NOW. - Mobility Orders Other (fall precautions) - Rehabiliation Orders Rehab Potential: Fair - Diet Orders No Concentrated Sweets (Diabetic diet) CERTIFICATION: I certify that the transfer of the above named patient to an Extended Care Facility is necessary for the continuing treatment of the diagnosis listed. The above information is true and accurate reflection of patient's current condition. Confidential - Redisclosure prohibited without a patient's written consent.
--- NOTE | 2018-01-07 15:07 | Discharge Summary ---
<Earl Holm - Last Filed: 01/07/18 15:29> Orders not resulted at time of discharge: Pending orders 01/05/18 13:30 ECG 12 lead ECG [ECG] Stat Date of Encounter: 01/07/18 Time of Encounter: 09:00 - Discharge Diagnosis (1) Ischemia of left lower extremity Priority: Primary Status: Resolved (2) Diastolic CHF Priority: Secondary Status: Chronic Qualifiers: Heart failure chronicity: chronic Qualified Code(s): I50.32 - Chronic diastolic (congestive) heart failure (3) Tobacco abuse Priority: Secondary Status: Chronic (4) Anxiety Priority: Secondary Status: Chronic (5) HTN (hypertension) Priority: Secondary Status: Chronic Qualifiers: Hypertension type: essential hypertension Qualified Code(s): I10 - Essential (primary) hypertension (6) Chronic pain Priority: Secondary Status: Chronic Qualifiers: Chronic pain type: other chronic pain Qualified Code(s): G89.29 - Other chronic pain (7) DVT prophylaxis Priority: Secondary Status: Acute (8) S/P below knee amputation Priority: Secondary Status: Chronic Qualifiers: Laterality: left Qualified Code(s): Z89.512 - Acquired absence of left leg below knee Hospital course: Mr. Taylor is a 52 year old male with past medical history significant for PVD, DM, current smoker, diastolic HF, paroxysmal afib on metoprolol, and R forefoot digit amputations. Patient was admitted for 2 days of pain of the left lower extremity (recent angiogram earlier in the month shows multilevel arterial occlusive disease), and necrotic non-healing ulcer of the right foot. Patient underwent L BKA and debridement of R foot ulcer. Patient tolerated procedure well, pain controlled with Percocet 7.5mg q4h (discharging with #28). He will be discharged to [facility] and he will follow-up with Dr. Trammell outpatient as well as with [facility] (paroxysmal afib, diastolic HF, sees every 3 months). - Time Spent with Patient Total time spent providing and/or coordinating discharge services: Greater than 30 minutes - Discharge Medications Prescriptions: OxyCODONE/APAP 7.5/325 [Percocet 7.5/325 MG] 1 tab PO QID PRN 7 Days #28 tablet PRN Reason: Pain Home Medications: Atorvastatin Calcium [Lipitor] 80 mg PO HS 12/22/17 [History] Dapagliflozin Propanediol [Farxiga] 5 mg PO DAILY 12/22/17 [History] Furosemide [Lasix] 40 mg PO DAILY 12/22/17 [History] Gabapentin [Neurontin] 800 mg PO TID 12/22/17 [History] Insulin ASPART [Novolog Flexpen] 0 - 20 units SQ TIDWM 12/22/17 [History] Insulin Glargine,Hum.rec.anlog [Lantus Solostar] 50 units SQ HS 12/22/17 [ History] Lisinopril [Zestril] 5 mg PO DAILY 12/22/17 [History] Metoprolol Succinate [Toprol Xl] 50 mg PO DAILY 12/22/17 [History] clonazePAM [Klonopin] 1 mg PO TID PRN 12/22/17 [History] OxyCODONE/APAP 7.5/325 [Percocet 7.5/325 MG] 1 tab PO QID PRN 7 Days #28 tablet 01/07/18 [Rx] Allergies/Adverse Reactions: 3 Allergy/AdvReac Type Severity Reaction Status Date / Time hydrocodone AdvReac Itching Verified 12/22/17 20:27 pregabalin [From Lyrica] AdvReac Itching Verified 12/22/17 20:27 Date of admission: 01/05/18 12:24 Primary care physician: Yvette Madden Consults: 01/05/18 21:53 Consult to Physical Therapy [CONS] Routine Comment: Evaluate, develop and implement POC Reason for Consult: s/p left BKA Does patient have active BEDREST order?: No Is patient medically & hemodynamically stable?: Yes Patient assessed for mobility or mobilized this visit?: No Consult to Mortgage Specialist [CONS] Routine Reason for SW Consult: post op amputation 01/06/18 08:54 Consult to Occupational Therapy [CONS] Routine Comment: Evaluate, develop and implement POC Reason for Consult: Needs placement for ECF, L BKA Does patient have active BEDREST order?: No Is patient medically & hemodynamically stable?: No 01/06/18 13:53 Consult to Wound Care [CONS] Routine Reason for Consult: Nectrotic wound to R heel Call Completed: No 01/06/18 15:09 Consult to Podiatry [CONS] Routine Consulting Provider: [facility] Reason for Consult: new Timmy CAIN 01/05 - old R. TMA with necrotic right heel ulcer Time Notified: 15:10 Call Completed: No Discharging clinician: Earl Holm Anticipated date of discharge: 01/07/18 - Constitutional Vitals: Temp Pulse Resp BP Pulse Ox 98.2 F 92 16 110/51 95 01/07/18 11:55 01/07/18 11:55 01/07/18 11:55 01/07/18 11:55 01/07/18 07:26 General appearance: Present: A&O X 3, answers questions appropriately - Head Head exam: Present: atraumatic, normal inspection - Eye Eye exam: Present: EOMI, normal appearance - ENT ENT exam: Present: mucous membranes moist - Neck Neck exam general surgery: Present: full ROM. Absent: lymphadenopathy - Respiratory Respiratory exam: Present: CTAB. Absent: accessory muscle use, rhonchi, stridor , wheezes - Cardiovascular Cardiovascular exam: Present: RRR, +S1, +S2 - GI/Abdominal GI/Abdominal exam: Present: no peritoneal signs. Absent: distended, firm, guarding - Extremities Exam Additional comments: Left BKA; dressing is clean/dry/intact - Neurological Exam Neurological exam: Absent: facial droop, speech deficit - Psychiatric Psychiatric exam: Present: normal affect, normal mood - Skin Skin exam: Absent: cyanosis, diaphoretic - Patient Status Disposition: Transfer SNF Condition: Fair Functional capacity at discharge: wheelchair bound (s/p L BKA) Overall status at discharge: patient is progressing back to baseline - Discharge Instructions Follow Up With: Yvette Madden [Primary Care Provider] - Rajan Trammell MD [Partnered Physician] - (Follow-up with Dr. Trammell in 6 weeks for amputation site evaluation and staple removal.) Zbigniew Scott, FIELD IDENTIFICATION SPECIALIST [Advanced Practice Nurse] - Additional Instructions: Daily dressing changes to left BKA. Patient to have dry to dry dressing with Kerlix roll and Ramon wrap. Patient to continue physical and occupational therapy. Patient keep the left knee extended. Patient is not to sit in chair with left knee flexed. - Diet and Activity Activity: increase activity as tolerated Diet: diabetic diet, low salt diet - VTE Documentation of Mechanical Device: Intermittent pneumatic compression device <Ureña,[place] R - Last Filed: 01/07/18 15:44> Orders not resulted at time of discharge: Pending orders 01/05/18 13:30 ECG 12 lead ECG [ECG] Stat Date of Encounter: 01/07/18 - Discharge Diagnosis (1) DVT prophylaxis Status: Acute (2) Tobacco abuse Status: Chronic (3) Diastolic CHF Status: Chronic Qualifiers: Heart failure chronicity: chronic Qualified Code(s): I50.32 - Chronic diastolic (congestive) heart failure (4) HTN (hypertension) Status: Chronic Qualifiers: Hypertension type: essential hypertension Qualified Code(s): I10 - Essential (primary) hypertension (5) Ischemia of left lower extremity Status: Resolved (6) Anxiety Status: Chronic (7) Chronic pain Status: Chronic Qualifiers: Chronic pain type: other chronic pain Qualified Code(s): G89.29 - Other chronic pain (8) S/P below knee amputation Status: Chronic Qualifiers: Laterality: left Qualified Code(s): Z89.512 - Acquired absence of left leg below knee Hospital course: Mr. Taylor is a 52 year old male - Time Spent with Patient Total time spent providing and/or coordinating discharge services: Date of admission: 01/05/18 12:24 Primary care physician: Yvette Madden Consults: 01/05/18 21:53 Consult to Physical Therapy [CONS] Routine Comment: Evaluate, develop and implement POC Reason for Consult: s/p left BKA Does patient have active BEDREST order?: No Is patient medically & hemodynamically stable?: Yes Patient assessed for mobility or mobilized this visit?: No Consult to Mortgage Specialist [CONS] Routine Reason for SW Consult: post op amputation 01/06/18 08:54 Consult to Occupational Therapy [CONS] Routine Comment: Evaluate, develop and implement POC Reason for Consult: Needs placement for ECF, L BKA Does patient have active BEDREST order?: No Is patient medically & hemodynamically stable?: No 01/06/18 13:53 Consult to Wound Care [CONS] Routine Reason for Consult: Nectrotic wound to R heel Call Completed: No 01/06/18 15:09 Consult to Podiatry [CONS] Routine Consulting Provider: [facility] Reason for Consult: new L. BKA 01/05 - old R. TMA with necrotic right heel ulcer Time Notified: 15:10 Call Completed: No - Constitutional Vitals: Temp Pulse Resp BP Pulse Ox 98.8 F 97 16 101/57 95 01/07/18 15:18 01/07/18 15:18 01/07/18 15:18 01/07/18 15:18 01/07/18 15:18 - Attending Attestation I performed an independent interview and examine of this patient. I agree with the findings, assessment, and plan of Dr. Holm, internal medicine resident. Patient is doing well. Pain is controlled. Stable for discharge to rehabilitation facility. All his other issues including chronic diastolic chf are presently stable. Patient has follow-up with vascular surgery arranged, as well as cardiology. Exam: Gen NAD Lung CTAB Ht RRR Abd Soft + BS, NT Ext - dressing over L BKA clean and dry
[2018-01-07 15:21] VITALS: BP 101/57
== END 2018-01-07 17:23 | DRG 240 ==
LOC: EMEROO 09:16 → 2NENU 12:24
PROVIDERS: ADMIT Internal Medicine; ATTEND Internal Medicine

== ENCOUNTER 2018-02-12 14:03 | Inpatient (IN) ==
[2018-02-12] MEDS ORDERED: Isovue-370 500 ML INFUS..BTL IV ONE (14:34)
--- NOTE | 2018-02-12 14:56 | Emergency Department Note ---
Disposition Clinical Impression: Diabetic foot ulcer Qualifiers: Diabetic foot ulcer location: unspecified part of foot Diabetes mellitus type: other specified (including CHARISSE) Laterality: right Non-pressure ulcer stage: unspecified non-pressure ulcer stage Qualified Code(s): E13.621 - Other specified diabetes mellitus with foot ulcer Cellulitis Qualifiers: Site of cellulitis: extremity Site of cellulitis of extremity: lower extremity Laterality: right Qualified Code(s): L03.115 - Cellulitis of right lower limb Disposition: Admitted As Inpatient Condition: Good Referrals: Yvette Madden [Advanced Practice Nurse] - Forms: ED Satisfaction Letter Time of Disposition: 17:54 General Adult HPI - General Chief complaint: ED Extremity Problem,Nontraumatic Stated complaint: Right foot ulcer Time Seen by Provider: 02/12/18 14:31 Nursing Notes Reviewed: Yes Vital Signs Reviewed: Yes - History of Present Illness HPI Narrative: 3 month history of nonhealing wound to the right foot. Has been on antibiotics before. Has gotten worse in the past week. Is not currently on antibodies. No fevers or chills. No chest pain shortness breath. Previously had a foul odor however not at this time. Pain Scale: 8 - Related Data Home Medications Medication Instructions Recorded Confirmed RX: Atorvastatin Calcium [Lipitor] 80 mg PO HS 12/22/17 02/12/18 RX: Dapagliflozin Propanediol 5 mg PO DAILY 12/22/17 02/12/18 [Farxiga] RX: Furosemide [Lasix] 40 mg PO DAILY 12/22/17 02/12/18 RX: Gabapentin [Neurontin] 800 mg PO TID 12/22/17 02/12/18 RX: Insulin ASPART [Novolog 0 - 20 units SQ TIDWM 12/22/17 02/12/18 Flexpen] RX: Insulin Glargine,Hum.rec.anlog 50 units SQ HS 12/22/17 02/12/18 [Lantus Solostar] RX: Lisinopril [Zestril] 5 mg PO DAILY 12/22/17 02/12/18 RX: Metoprolol Succinate [Toprol 50 mg PO DAILY 12/22/17 02/12/18 Xl] RX: clonazePAM [Klonopin] 1 mg PO TID PRN 12/22/17 02/12/18 Metformin HCl [Glucophage] 1,000 mg PO BID 02/12/18 02/12/18 Previous Rx's Medication Instructions Recorded RX: OxyCODONE/APAP 7.5/325 1 tab PO QID PRN 7 Days #28 tablet 01/07/18 [Percocet 7.5/325 MG] Allergies Allergy/AdvReac Type Severity Reaction Status Date / Time hydrocodone AdvReac Itching Verified 12/22/17 20:27 pregabalin [From Lyrica] AdvReac Itching Verified 12/22/17 20:27 All systems ED: reviewed and negative except as stated. Constitutional: Denies: fever, chills Cardiovascular: Denies: chest pain, syncope Respiratory: Denies: cough, dyspnea Gastrointestinal: Denies: abdominal pain, nausea, vomiting, diarrhea Genitourinary: Denies: urgency, dysuria Musculoskeletal: Denies: back pain, neck pain Integumentary: Reports: lesions (Black area to the right foot in 2 different [address]. Discharge. Did have a foul odor however not today.) Past Medical History - Past Medical History Attestation: Yes The following information was validated with the patient. Source: patient Medical history: Reports: atrial fibrillation, CHF, diabetes, hyperlipidemia, hypertension, other Surgical history: Reports: other Psychiatric history: Reports: anxiety - Social History Smoking Status: Current every day smoker Smokeless Tobacco Status: No Alcohol use: Reports: occasionally Drug use: Reports: none, other Physical Exam - General Limitations: no limitations General appearance: alert, in no apparent distress - Head Head exam: atraumatic, normocephalic, normal inspection - Eye Eye exam: Present: normal appearance, PERRL, EOMI - ENT ENT exam: normal exam, normal oropharynx, mucous membranes moist - Neck Neck exam: Present: normal inspection, full ROM, trachea midline - Chest Chest inspection: Present: normal inspection, symmetric chest wall rise - Respiratory Respiratory exam: Present: normal lung sounds bilaterally. Absent: respiratory distress, accessory muscle use - Cardiovascular Cardiovascular exam: Present: regular rate, normal rhythm, normal heart sounds - Abdominal Exam Abdominal exam: Present: soft, Non-Tender. Absent: tenderness, distention, guarding, rebound, rigidity, organomegaly - Expanded Upper Extremity Exam Shoulder exam: Present: normal inspection, full ROM Arm exam: Present: normal inspection, full ROM Elbow exam: Present: normal inspection, full ROM Forearm/Wrist exam: Present: normal inspection, full ROM Hand exam: Present: normal inspection, full ROM Vascular exam: Normal: capillary refill, radial pulse - Expanded Lower Extremity Exam Hip/Pelvis exam: Present: normal inspection, full ROM Upper leg exam: Present: normal inspection, full ROM Knee exam: Present: normal inspection Lower leg exam: Present: other (Left [id number] amputation. Right foot has had all toes surgically removed. Does have a eschar region to the ball of his foot as well as a heel area. He will areas also has exposed erythematous skin. No foul odor at this time however patient reports that has recently had a foul odor.) - Back Exam Back exam: Present: normal inspection, full ROM. Absent: tenderness - Neurological Exam Neurological exam: Present: alert, oriented X3 - Psychiatric Psychiatric exam: Present: normal affect, normal mood - Skin Skin exam: Present: warm, dry, intact, normal color. Absent: rash, cyanosis Course Course Narrative: Male patient was any to [facility] department with a 3 month history of nonhealing wound to his right foot. He is a diabetic with peripheral artery disease that smokes. States he was on antibiotics for this however has not been on them in the past week and it is gotten worse. Does have an eschar lesion to the ball and heel of his right foot. All digits have been amputated. He also has a left below the knee amputation from a similar wound. He denies any fevers chills night sweats denies any shortness of breath or chest pain. States that his blood sugars generally not under control. Patient does have a leukocytosis. He has some mild discharge to his foot however not extremely significant. The area is not erythematous. CT of the area did show cellulitis. No signs of osteomyelitis. I did speak with the on-call sales officer who is agreeable to see the patient in the hospital. He recommends we start patient on Zosyn and Vanco. I feel this is reasonable. We will culture the wound as well. Pt is febrile here. - Consultations Consultation #1: I spoke with Dr Curry. He states he will see the Pt in the morning. Time: 17:54 Consultation #2: Dr Priest accepted Pt in stable condition. Time: 18:03 Vital Signs Temperature 100.4 F H 02/12/18 14:08 Pulse Rate 102 02/12/18 14:08 Respiratory Rate 16 02/12/18 14:08 Blood Pressure 126/95 02/12/18 14:08 O2 Sat by Pulse Oximetry 97 02/12/18 14:08 Temperature 100.4 F H 02/12/18 14:49 Pulse Rate 102 02/12/18 14:49 Respiratory Rate 16 02/12/18 14:49 Blood Pressure 126/95 02/12/18 14:49 O2 Sat by Pulse Oximetry 97 02/12/18 14:49 Oxygen Delivery Oxygen Delivery Room Air Medical Decision Making - Medical Records Medical records reviewed: Yes I reviewed the patient's medical records. - Lab Data Lab results reviewed: Yes I reviewed the patient's lab results. Result diagrams: 02/12/18 14:32 02/12/18 14:32 Lab Results 02/12/18 02/12/18 02/12/18 Range/Units 14:32 14:32 14:32 WBC 16.3 H (4.3-11.1) K/mcL RBC 3.94 L (4.19-5.50) M/mcL Hgb 11.4 L (12.9-16.9) g/dL Hct 34.3 L (37.5-50.1) % MCV 87.1 (83.0-100.0) fL MCH 28.9 (28.0-33.3) pg MCHC 33.2 (31.6-35.5) g/dL RDW 14.1 (11.5-14.5) % Plt Count 345 (140-400) K/mcL MPV 9.7 (9.4-12.4) fL Immature Gran % 0.6 (0-4) % Seg Neutrophils % 82.9 % Lymphocytes % 10.3 % Monocytes % 5.4 % Eosinophils % 0.6 % Basophils % 0.2 % Neutrophils # 13.6 H (1.6-8.9) K/mcL Lymphocytes # 1.7 (0.6-4.6) K/mcL Monocytes # 0.9 (0.0-1.3) K/mcL Eosinophils # 0.1 (0.0-0.6) K/mcL Basophils # 0.0 (0.0-0.2) K/mcL PT 13.3 H (9.4-12.1) Seconds INR 1.2 APTT 37.6 H (26.0-36.0) Seconds Sodium 134 L (136-145) mEq/L Potassium 4.1 (3.5-5.1) mEq/L Chloride 96 L (98-107) mEq/L Carbon Dioxide 30 H (23-29) mEq/L BUN 12 (6-20) mg/dL Creatinine 0.88 (0.70-1.30) mg/dL Est GFR ( Amer) > 60 (> 60) Est GFR (Non-Af Amer) > 60 (> 60) BUN/Creatinine Ratio 14 (6-26) Glucose 146 H (70-105) mg/dL Calculated Osmolality 280 (280-300) Lactic Acid (0.5-2.2) mmol/L Calcium 9.5 (8.6-10.3) mg/dL Phosphorus 4.7 H (2.7-4.5) mg/dL Magnesium 2.0 (1.6-2.6) mg/dL Total Bilirubin 0.4 (0.3-1.0) mg/dL Direct Bilirubin 0.0 (0.0-0.2) mg/dL Indirect Bilirubin 0.4 (0.0-1.2) mg/dL AST 18 (13-39) Units/L ALT 29 (7-52) Units/L Alkaline Phosphatase 200 H (34-104) Units/L Troponin I < 0.03 (< 0.04) ng/mL Serum Total Protein 7.5 (6.4-8.9) g/dL Albumin 4.0 (3.5-5.7) g/dL Globulin 3.5 (2.4-3.5) g/dL Albumin/Globulin Ratio 1.1 (1.1-2.2) 02/12/18 Range/Units 14:44 WBC (4.3-11.1) K/mcL RBC (4.19-5.50) M/mcL Hgb (12.9-16.9) g/dL Hct (37.5-50.1) % MCV (83.0-100.0) fL MCH (28.0-33.3) pg MCHC (31.6-35.5) g/dL RDW (11.5-14.5) % Plt Count (140-400) K/mcL MPV (9.4-12.4) fL Immature Gran % (0-4) % Seg Neutrophils % % Lymphocytes % % Monocytes % % Eosinophils % % Basophils % % Neutrophils # (1.6-8.9) K/mcL Lymphocytes # (0.6-4.6) K/mcL Monocytes # (0.0-1.3) K/mcL Eosinophils # (0.0-0.6) K/mcL Basophils # (0.0-0.2) K/mcL PT (9.4-12.1) Seconds INR APTT (26.0-36.0) Seconds Sodium (136-145) mEq/L Potassium (3.5-5.1) mEq/L Chloride (98-107) mEq/L Carbon Dioxide (23-29) mEq/L BUN (6-20) mg/dL Creatinine (0.70-1.30) mg/dL Est GFR ( Amer) (> 60) Est GFR (Non-Af Amer) (> 60) BUN/Creatinine Ratio (6-26) Glucose (70-105) mg/dL Calculated Osmolality (280-300) Lactic Acid 1.3 (0.5-2.2) mmol/L Calcium (8.6-10.3) mg/dL Phosphorus (2.7-4.5) mg/dL Magnesium (1.6-2.6) mg/dL Total Bilirubin (0.3-1.0) mg/dL Direct Bilirubin (0.0-0.2) mg/dL Indirect Bilirubin (0.0-1.2) mg/dL AST (13-39) Units/L ALT (7-52) Units/L Alkaline Phosphatase (34-104) Units/L Troponin I (< 0.04) ng/mL Serum Total Protein (6.4-8.9) g/dL Albumin (3.5-5.7) g/dL Globulin (2.4-3.5) g/dL Albumin/Globulin Ratio (1.1-2.2) - Radiology Data Radiology results reviewed: Yes I reviewed the patient's radiology results. Foot CT 02/12/18 14:34 IMPRESSION: 1. Subcutaneous edema involving the soft tissues of the foot most pronounced dorsally and distally. Correlate clinically for cellulitis. No organized drainable fluid collection identified to suggest abscess. Mild irregularity of the distal skin which may reflect ulceration. Correlate clinically. 2. No definite CT evidence for osteomyelitis. 3. Postsurgical changes of transmetatarsal amputation involving the 1st through 5th digits. 4. [id number] osteoarthritis. D/ / Ned Alan MD / Ned Alan MD Interpreting Provider: Ned Alan MD - EKG Data EKG #1 EKG attestation: Yes I reviewed and interpreted this EKG. EKG results narrative: Electronically paced rhythm at a rate of 99. [place] interval is 144. Your's duration is 121. QT is 383. QTC is 439. No signs of acute ischemia. Patient was ventricularly paced on the previous EKG dated December 22 2017.
[2018-02-12 14:59] LABS: Basophils % 0.2 %; Eosinophils # 0.1 K/mcL (0.0-0.6); Eosinophils % 0.6 %; Hematocrit 34.3 % (37.5-50.1); Hemoglobin 11.4 g/dL (12.9-16.9); Immature Granulocytes % 0.6 % (0-4); Lymphocytes # 1.7 K/mcL (0.6-4.6); Lymphocytes % 10.3 %; Mean Corpuscular HGB Conc 33.2 g/dL (31.6-35.5); Mean Corpuscular Hemoglobin 28.9 pg (28.0-33.3); Mean Corpuscular Volume 87.1 fL (83.0-100.0); Mean Platelet Volume 9.7 fL (9.4-12.4); Monocytes # 0.9 K/mcL (0.0-1.3); Monocytes % 5.4 %; Neutrophils # 13.6 K/mcL (1.6-8.9); Platelet Count 345 K/mcL (140-400); Red Blood Count 3.94 M/mcL (4.19-5.50); Red Cell Distribution Width 14.1 % (11.5-14.5); Segmented Neutrophils % 82.9 %
[2018-02-12 15:06] LABS: INR 1.2; Prothrombin Time 13.3 Seconds (9.4-12.1)
[2018-02-12 15:09] LABS: Activated Partial Thrombo Time 37.6 Seconds (26.0-36.0)
[2018-02-12 15:22] LABS: Alanine Aminotransferase 29 Units/L (7-52); Albumin/Globulin Ratio 1.1 (1.1-2.2); Alkaline Phosphatase 200 Units/L (34-104); Aspartate Amino Transferase 18 Units/L (13-39); BUN/Creatinine Ratio 14 (6-26); Bilirubin,Indirect 0.4 mg/dL (0.0-1.2); Bilirubin,Total 0.4 mg/dL (0.3-1.0); Blood Urea Nitrogen 12 mg/dL (6-20); Calcium 9.5 mg/dL (8.6-10.3); Carbon Dioxide 30 mEq/L (23-29); Chloride 96 mEq/L (98-107); Globulin 3.5 g/dL (2.4-3.5); Glucose 146 mg/dL (70-105); Osmolality,Calculated 280 (280-300); Phosphorous 4.7 mg/dL (2.7-4.5); Potassium 4.1 mEq/L (3.5-5.1); Sodium 134 mEq/L (136-145); Total Protein 7.5 g/dL (6.4-8.9); Troponin I < 0.03 ng/mL (< 0.04); eGFR For Non-African Americans > 60 (> 60)
--- NOTE | 2018-02-12 16:30 | Emergency Department Note ---
Disposition Clinical Impression: Diabetic foot ulcer Qualifiers: Diabetic foot ulcer location: unspecified part of foot Diabetes mellitus type: other specified (including CHARISSE) Laterality: right Non-pressure ulcer stage: unspecified non-pressure ulcer stage Qualified Code(s): E13.621 - Other specified diabetes mellitus with foot ulcer; L97.519 - Non-pressure chronic ulcer of other part of right foot with unspecified severity Disposition: Admitted As Inpatient Referrals: Yvette Madden [Primary Care Provider] - Forms: ED Satisfaction Letter General Adult HPI - General Chief complaint: ED Extremity Problem,Nontraumatic Stated complaint: Right foot ulcer Time Seen by Provider: 02/12/18 14:31 Source: patient Limitations: no limitations - History of Present Illness Pain Scale: 8 - Related Data Home Medications Medication Instructions Recorded Confirmed Atorvastatin Calcium [Lipitor] 80 mg PO HS 12/22/17 02/12/18 Dapagliflozin Propanediol [Farxiga] 5 mg PO DAILY 12/22/17 02/12/18 Furosemide [Lasix] 40 mg PO DAILY 12/22/17 02/12/18 Gabapentin [Neurontin] 800 mg PO TID 12/22/17 02/12/18 Insulin ASPART [Novolog Flexpen] 0 - 20 units SQ TIDWM 12/22/17 02/12/18 Insulin Glargine,Hum.rec.anlog 50 units SQ HS 12/22/17 02/12/18 [Lantus Solostar] Lisinopril [Zestril] 5 mg PO DAILY 12/22/17 02/12/18 Metoprolol Succinate [Toprol Xl] 50 mg PO DAILY 12/22/17 02/12/18 clonazePAM [Klonopin] 1 mg PO TID PRN 12/22/17 02/12/18 Metformin HCl [Glucophage] 1,000 mg PO BID 02/12/18 02/12/18 Previous Rx's Medication Instructions Recorded OxyCODONE/APAP 7.5/325 [Percocet 1 tab PO QID PRN 7 Days #28 tablet 01/07/18 7.5/325 MG] Allergies Allergy/AdvReac Type Severity Reaction Status Date / Time hydrocodone AdvReac Itching Verified 12/22/17 20:27 pregabalin [From Lyrica] AdvReac Itching Verified 12/22/17 20:27 Past Medical History - Past Medical History Medical history: Reports: atrial fibrillation, CHF, diabetes, hyperlipidemia, hypertension, other Surgical history: Reports: other Psychiatric history: Reports: anxiety - Social History Smoking Status: Current every day smoker Smokeless Tobacco Status: No Alcohol use: Reports: occasionally Drug use: Reports: none, other Physical Exam - General Limitations: no limitations General appearance: alert, in no apparent distress Course Vital Signs Temperature 100.4 F H 02/12/18 14:08 Pulse Rate 102 02/12/18 14:08 Respiratory Rate 16 02/12/18 14:08 Blood Pressure 126/95 02/12/18 14:08 O2 Sat by Pulse Oximetry 97 02/12/18 14:08 Temperature 100.4 F H 02/12/18 14:49 Pulse Rate 102 02/12/18 14:49 Respiratory Rate 16 02/12/18 14:49 Blood Pressure 126/95 02/12/18 14:49 O2 Sat by Pulse Oximetry 97 02/12/18 14:49 Oxygen Delivery Oxygen Delivery Room Air Medical Decision Making - Lab Data Result diagrams: 02/12/18 14:32 02/12/18 14:32 Lab Results 02/12/18 02/12/18 02/12/18 Range/Units 14:32 14:32 14:32 WBC 16.3 H (4.3-11.1) K/mcL RBC 3.94 L (4.19-5.50) M/mcL Hgb 11.4 L (12.9-16.9) g/dL Hct 34.3 L (37.5-50.1) % MCV 87.1 (83.0-100.0) fL MCH 28.9 (28.0-33.3) pg MCHC 33.2 (31.6-35.5) g/dL RDW 14.1 (11.5-14.5) % Plt Count 345 (140-400) K/mcL MPV 9.7 (9.4-12.4) fL Immature Gran % 0.6 (0-4) % Seg Neutrophils % 82.9 % Lymphocytes % 10.3 % Monocytes % 5.4 % Eosinophils % 0.6 % Basophils % 0.2 % Neutrophils # 13.6 H (1.6-8.9) K/mcL Lymphocytes # 1.7 (0.6-4.6) K/mcL Monocytes # 0.9 (0.0-1.3) K/mcL Eosinophils # 0.1 (0.0-0.6) K/mcL Basophils # 0.0 (0.0-0.2) K/mcL PT 13.3 H (9.4-12.1) Seconds INR 1.2 APTT 37.6 H (26.0-36.0) Seconds Sodium 134 L (136-145) mEq/L Potassium 4.1 (3.5-5.1) mEq/L Chloride 96 L (98-107) mEq/L Carbon Dioxide 30 H (23-29) mEq/L BUN 12 (6-20) mg/dL Creatinine 0.88 (0.70-1.30) mg/dL Est GFR ( Amer) > 60 (> 60) Est GFR (Non-Af Amer) > 60 (> 60) BUN/Creatinine Ratio 14 (6-26) Glucose 146 H (70-105) mg/dL Calculated Osmolality 280 (280-300) Lactic Acid (0.5-2.2) mmol/L Calcium 9.5 (8.6-10.3) mg/dL Phosphorus 4.7 H (2.7-4.5) mg/dL Magnesium 2.0 (1.6-2.6) mg/dL Total Bilirubin 0.4 (0.3-1.0) mg/dL Direct Bilirubin 0.0 (0.0-0.2) mg/dL Indirect Bilirubin 0.4 (0.0-1.2) mg/dL AST 18 (13-39) Units/L ALT 29 (7-52) Units/L Alkaline Phosphatase 200 H (34-104) Units/L Troponin I < 0.03 (< 0.04) ng/mL Serum Total Protein 7.5 (6.4-8.9) g/dL Albumin 4.0 (3.5-5.7) g/dL Globulin 3.5 (2.4-3.5) g/dL Albumin/Globulin Ratio 1.1 (1.1-2.2) 02/12/18 Range/Units 14:44 WBC (4.3-11.1) K/mcL RBC (4.19-5.50) M/mcL Hgb (12.9-16.9) g/dL Hct (37.5-50.1) % MCV (83.0-100.0) fL MCH (28.0-33.3) pg MCHC (31.6-35.5) g/dL RDW (11.5-14.5) % Plt Count (140-400) K/mcL MPV (9.4-12.4) fL Immature Gran % (0-4) % Seg Neutrophils % % Lymphocytes % % Monocytes % % Eosinophils % % Basophils % % Neutrophils # (1.6-8.9) K/mcL Lymphocytes # (0.6-4.6) K/mcL Monocytes # (0.0-1.3) K/mcL Eosinophils # (0.0-0.6) K/mcL Basophils # (0.0-0.2) K/mcL PT (9.4-12.1) Seconds INR APTT (26.0-36.0) Seconds Sodium (136-145) mEq/L Potassium (3.5-5.1) mEq/L Chloride (98-107) mEq/L Carbon Dioxide (23-29) mEq/L BUN (6-20) mg/dL Creatinine (0.70-1.30) mg/dL Est GFR ( Amer) (> 60) Est GFR (Non-Af Amer) (> 60) BUN/Creatinine Ratio (6-26) Glucose (70-105) mg/dL Calculated Osmolality (280-300) Lactic Acid 1.3 (0.5-2.2) mmol/L Calcium (8.6-10.3) mg/dL Phosphorus (2.7-4.5) mg/dL Magnesium (1.6-2.6) mg/dL Total Bilirubin (0.3-1.0) mg/dL Direct Bilirubin (0.0-0.2) mg/dL Indirect Bilirubin (0.0-1.2) mg/dL AST (13-39) Units/L ALT (7-52) Units/L Alkaline Phosphatase (34-104) Units/L Troponin I (< 0.04) ng/mL Serum Total Protein (6.4-8.9) g/dL Albumin (3.5-5.7) g/dL Globulin (2.4-3.5) g/dL Albumin/Globulin Ratio (1.1-2.2) Attestation Statement - Attestation Attestation: I examined this patient and my medical decision-making was reviewed with the Resident Physician. I agree with the documented findings, disposition and treatment plan as described except to the extent set forth below. 52 year old male presnts to the ED with complanits of right foot ulcer and was suggested to come ot the ED per DrFilipe Sessions for surgical intervetnion to removed the ulcerated areas. He is febrile and tachycardiac which is concerning for sepsis, although we will discuss with podiary before starting IV ABX. Patient with be admitted to [facility].
[2018-02-12] MEDS: 0.9 % Sodium Chloride 1,000 ML IVC SCH ×2 (16:54→18:15)
[2018-02-12] MEDS ORDERED: Piperacillin/Tazobactam 3.375 GM in 0.9 % Sodium Chloride Mini Bag 100 ML IVPB ONE (17:51)
[2018-02-12] MEDS ORDERED: Naloxone 0.4 MG/ML INJ IVP PRN (23:31)
[2018-02-12] MEDS ORDERED: *HR* HYDROcodone/Acet 5/325 mg TABLET PO PRN (23:31)
[2018-02-12] MEDS ORDERED: *HR* OxyCODONE Immed Rel 5 MG TABLET PO PRN (23:31)
[2018-02-12] MEDS ORDERED: Acetaminophen 325 MG TABLET PO PRN (23:31)
[2018-02-12] MEDS ORDERED: clonazePAM 1 MG TABLET PO PRN (23:38)
[2018-02-12] MEDS ORDERED: *HR* OxyCODONE/APAP 7.5/325 TABLET PO PRN (23:38)
[2018-02-12] MEDS ORDERED: Dextrose Gel 15 GM/37.5 ML TUBE PO PRN ×2 (23:41)
[2018-02-12] MEDS ORDERED: D5% in Water 1,000 ML IVC PRN (23:41)
[2018-02-12] MEDS ORDERED: *HR* Dextrose 50 % in Water (Syg) 50 ML SYRINGE IVP PRN (23:41)
[2018-02-12] MEDS ORDERED: Insulin DETEMIR 100 UNIT/ML X5UNITS SQ SCH (23:42)
[2018-02-13] MEDS ORDERED: Piperacillin/Tazobactam 3.375 GM in 0.9 % Sodium Chloride Mini Bag 100 ML IVPB SCH
[2018-02-13 04:42] LABS: Basophils % 0.1 %; Eosinophils # 0.2 K/mcL (0.0-0.6); Eosinophils % 1.4 %; Hematocrit 27.8 % (37.5-50.1); Immature Granulocytes % 0.5 % (0-4); Lymphocytes # 1.7 K/mcL (0.6-4.6); Lymphocytes % 15.2 %; Mean Corpuscular HGB Conc 32.4 g/dL (31.6-35.5); Mean Corpuscular Hemoglobin 28.4 pg (28.0-33.3); Mean Corpuscular Volume 87.7 fL (83.0-100.0); Mean Platelet Volume 10.4 fL (9.4-12.4); Monocytes # 0.8 K/mcL (0.0-1.3); Monocytes % 7.2 %; Neutrophils # 8.3 K/mcL (1.6-8.9); Platelet Count 267 K/mcL (140-400); Red Blood Count 3.17 M/mcL (4.19-5.50); Segmented Neutrophils % 75.6 %
[2018-02-13 04:54] LABS: BUN/Creatinine Ratio 21 (6-26); Blood Urea Nitrogen 16 mg/dL (6-20); Calcium 8.4 mg/dL (8.6-10.3); Carbon Dioxide 25 mEq/L (23-29); Chloride 109 mEq/L (98-107); Glucose 151 mg/dL (70-105); Osmolality,Calculated 280 (280-300); Sodium 133 mEq/L (136-145); eGFR For Non-African Americans > 60 (> 60)
--- NOTE | 2018-02-13 06:00 | Internal Med History&Physical ---
Date of Encounter: 02/12/18 Time of Encounter: 23:00 Internal Medicine - H&P: HPI Chief complaint: Necrotic wound of right foot Admitted From: Home Plans for Post Hospital Care: Transfer Alf Facility History of present illness: Mr. Taylor is a 52 year old male. He has had long-standing type 2 diabetes mellitus with severe peripheral arterial disease. He had multiple amputations in his lower extremities in the past. It was 3 months ago when he had left below knee amputation; the jc will be taken off on Thursday next week. Over the last several weeks the patient has been developing necrotic wound on the lateral aspect of his right heel. It is black in color; draining a little bit. It is associated with mild grade fever; in the last few days. The wound care nurse asked him to come to the emergency room. Review of systems: All 14 organ systems were reviewed by me with the patient. Positive and pertinent negative findings are listed above. The rest of organ systems is negative. Physical Exam: Skin: There is a black color necrotic wound covering the lateral aspect of his right heel. It is draining a little bit from one side. The stump resulting from below knee amputation of her left leg is healing well. The jc are approximating the wound edges. Eyes: Sclera is white. There is no discharge from eyes. ENMT: Oral/pharyngeal mucosa is normal in appearance. There is no discharge from nose or ears. Respiratory: Normal breath sounds with no crackles and wheezes bilaterally. CV: Heart is regular with no gallop or murmur. GI: Abdomen is flat and soft with no palpable mass or visceromegaly. : There is no tenderness in patient's flanks bilaterally. Neuro exam: There is good strength in upper and lower extremities. The patient has normal eye movements. Psychiatric: The patient has normal affect. His thought process is appropriate to the situation. A/P: Necrotic wound of her right heel. CT of his right foot revealed subcutaneous edema involving the soft tissues of the foot; mostly pronounced dorsally and distally. No organized drainable fluid collection was identified. There is no evidence for osteomyelitis. We will continue IV vancomycin and IV Zosyn. Podiatry is consulted. Type 2 diabetes mellitus with severe peripheral arterial disease. Status post left below knee amputation. We will continue diabetic diet, Levemir and when necessary Humalog. We will continue Farxiga and metformin. Hypertension. Under control. Will continue lisinopril. Hyperlipidemia. Will continue atorvastatin. Past Med Surg Social Fam HX - Past Medical History Medical history: atrial fibrillation, CHF, diabetes, hyperlipidemia, hypertension, other Additional medical history: cystic fibrosis Psychiatric history: anxiety - Past Surgical History Surgical History: other Additional surgical history: left BKA November 2017. pacer/defib - Social History Smoking Status: Current every day smoker Smokeless Tobacco Status: No Alcohol use: occasionally Drug use: none - Family History Father Adopted: No Living Status: Hx Family Cardiac Disorders: No Hx Family Respiratory Disorders: No Hx Family Cancer: Yes Hx Family GI Disorders: No Hx Family Endocrine Disorder: No Hx Family Neuromuscular Disorders: No Hx Family Neurologic Disorders: No Hx Family HEENT Disorders: No Hx Family Autoimmune Disorders: No Mother Adopted: No Living Status: Hx Family Cardiac Disorders: Yes Hx Family Respiratory Disorders: No Hx Family Cancer: No Hx Family GI Disorders: No Hx Family Endocrine Disorder: Yes Hx Family Neuromuscular Disorders: No Hx Family Neurologic Disorders: No Hx Family HEENT Disorders: No Hx Family Autoimmune Disorders: No Internal Medicine - H&P: Meds Atorvastatin Calcium [Lipitor] 80 mg PO HS 12/22/17 [History] Dapagliflozin Propanediol [Farxiga] 5 mg PO DAILY 12/22/17 [History] Furosemide [Lasix] 40 mg PO DAILY 12/22/17 [History] Gabapentin [Neurontin] 800 mg PO TID 12/22/17 [History] Insulin ASPART [Novolog Flexpen] 0 - 20 units SQ TIDWM 12/22/17 [History] Insulin Glargine,Hum.rec.anlog [Lantus Solostar] 50 units SQ HS 12/22/17 [ History] Lisinopril [Zestril] 5 mg PO DAILY 12/22/17 [History] Metoprolol Succinate [Toprol Xl] 50 mg PO DAILY 12/22/17 [History] clonazePAM [Klonopin] 1 mg PO TID PRN 12/22/17 [History] OxyCODONE/APAP 7.5/325 [Percocet 7.5/325 MG] 1 tab PO QID PRN 7 Days #28 tablet 01/07/18 [Rx] Metformin HCl [Glucophage] 1,000 mg PO BID 02/12/18 [History] 3 Allergy/AdvReac Type Severity Reaction Status Date / Time hydrocodone AdvReac Itching Verified 12/22/17 20:27 pregabalin [From Lyrica] AdvReac Itching Verified 12/22/17 20:27 - Constitutional Vitals: Temp Pulse Resp BP Pulse Ox 97.9 F 92 14 105/63 97 02/13/18 03:10 02/13/18 03:10 02/13/18 03:10 02/13/18 03:10 02/13/18 03:10 Internal Med - H&P Results - Labs CBC & Chem 7: 02/13/18 03:51 02/13/18 03:51 Labs: Short CBC 02/13/18 Range/Units 03:51 WBC 10.9 (4.3-11.1) K/mcL Hgb 9.0 L D (12.9-16.9) g/dL Hct 27.8 L (37.5-50.1) % Plt Count 267 (140-400) K/mcL Neutrophils # 8.3 (1.6-8.9) K/mcL BMP 02/13/18 03:51 Sodium 133 L Potassium 4.0 Chloride 109 H Carbon Dioxide 25 BUN 16 Creatinine 0.75 Glucose 151 H Calcium 8.4 L - Assessment and plan (1) Diabetes mellitus with foot ulcer and gangrene Status: Acute (2) Type 2 diabetes mellitus Status: Acute Qualifiers: Diabetes mellitus intermediate manager insulin use: with intermediate manager use Diabetes mellitus complication status: with circulatory complication Diabetes mellitus complication detail: with peripheral angiopathy with gangrene Qualified Code(s ): E11.52 - Type 2 diabetes mellitus with diabetic peripheral angiopathy with gangrene; Z79.4 - long-term (current) use of insulin (3) HTN (hypertension) Status: Acute Qualifiers: Hypertension type: essential hypertension Qualified Code(s): I10 - Essential (primary) hypertension (4) HLD (hyperlipidemia) Status: Acute Qualifiers: Hyperlipidemia type: unspecified Qualified Code(s): E78.5 - Hyperlipidemia , unspecified - Time Spent With Patient Total time spent is greater than 50% in coordination of care (as documented) at patient's floor/unit and/or counseling patient: Greater than 35 minutes (45 minutes)
[2018-02-13 07:01] VITALS: BP 113/66
[2018-02-13] MEDS ORDERED: Insulin LISPRO 300 UNITS/3 ML VIAL SQ SCH ×3 (07:30→21:00)
[2018-02-13] MEDS ORDERED: Gabapentin 400 MG CAPSULE PO SCH (09:00)
[2018-02-13] MEDS ORDERED: *HR* Metformin 500 MG TABLET PO SCH (09:00)
[2018-02-13] MEDS ORDERED: (Dapagliflozin Propanediol [Farxiga] 5 MG) PO SCH (09:00)
[2018-02-13] MEDS ORDERED: Metoprolol XL (24 HR) Succ 50 MG TAB.ER.24H PO SCH (09:00)
[2018-02-13] MEDS ORDERED: Nicotine 14 MG PATCH.TD24 TD SCH (09:00)
[2018-02-13] MEDS ORDERED: Aminoglycoside Consult 1 EACH MC ONE (10:19)
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
--- NOTE | 2018-02-15 08:51 | Electrocardiograph Report ---
[place] [id number] Test Date: 2018-02-12 Pat Name: Jose Taylor Department: 104 Room: 3A42 Gender: M [employer] Bagger: TAZ : 1965 Requested By: Magdalene Wheatley Order Number: [id number] Reading MD: Joseph Rutherford Measurements Intervals [place] Rate: 99 P: 52 DE: 144 QRS: -43 QRSD: 121 T: 50 QT: 383 QTc: 439 Interpretive Statements ELECTRONIC VENTRICULAR PACEMAKER ABNORMAL RHYTHM ECG Electronically Signed On 02-15-2018 8:50:20 EDT by Joseph Rutherford
== END 2018-02-13 10:20 | disposition left against medical advice (07) | DRG 300 ==
LOC: EMEROO 14:03 → 3ANU 14:03
PROVIDERS: ADMIT Internal Medicine; ATTEND Internal Medicine

== ENCOUNTER 2022-02-16 06:47 | Observation (INO) ==
[2022-02-16] MEDS: Ipratropium/Albuterol Neb 3 ML ONE ×2 (07:10→07:14)
[2022-02-16 07:19] LABS: ABG Base Excess -9 mEq/L (-2 to 3); ABG HCO3 19 mEq/L (21-27); ABG Oxygen Saturation 97 % (95-98); ABG PCO2 44 mmHg (35-45); ABG PH 7.24 pH Units (7.32-7.45); ABG PO2 106 mmHg (85-104); ABG TCO2 20 mEq/L (20-26)
[2022-02-16 07:42] LABS: Hematocrit 42.6 % (37.5-50.1); Hemoglobin 13.1 g/dL (12.9-16.9); Mean Corpuscular HGB Conc 30.8 g/dL (31.6-35.5); Mean Corpuscular Hemoglobin 30.9 pg (28.0-33.3); Mean Corpuscular Volume 100.5 fL (83.0-100.0); Mean Platelet Volume 11.2 fL (9.4-12.4); Nucleated Red Blood Cells 0.1 /100 WBC (0); Platelet Count 307 K/mcL (140-400); Red Blood Count 4.24 M/mcL (4.19-5.50); Red Cell Distribution Width 14.5 % (11.5-14.5); White Blood Count 16.6 K/mcL (4.3-11.1)
[2022-02-16] MEDS ORDERED: cefTRIAXone 1,000 MG in 0.9 % Sodium Chloride Mini Bag 100 ML IVPB ONE (07:53)
[2022-02-16] MEDS ORDERED: Doxycycline 100 MG in 0.9 % Sodium Chloride Mini Bag 100 ML IVPB ONE (07:54)
[2022-02-16 08:04] LABS: BUN/Creatinine Ratio 18 (6-26); Blood Urea Nitrogen 20 mg/dL (6-20); Calcium 9.1 mg/dL (8.6-10.3); Carbon Dioxide 21 mEq/L (23-29); Chloride 94 mEq/L (98-107); Glucose 630 mg/dL (70-105); Osmolality,Calculated 306 (280-300); Potassium 3.7 mEq/L (3.5-5.1); Sodium 132 mEq/L (136-145); Troponin I 0.03 ng/mL (< 0.04); eGFR For African Americans > 60 (> 60); eGFR For Non-African Americans > 60 (> 60)
[2022-02-16] MEDS ORDERED: Vancomycin 1,500 MG/265 ML IV.SOLN IVPB ONE (08:04)
[2022-02-16] MEDS ORDERED: Piperacillin/Tazobactam 3.375 GM in 0.9 % Sodium Chloride Mini Bag 100 ML IVPB ONE (08:07)
[2022-02-16] MEDS ORDERED: 0.9 % Sodium Chloride 2,000 ML ONE (08:10)
[2022-02-16] MEDS ORDERED: 0.9 % Sodium Chloride 1,000 ML IVC SCH (08:15)
[2022-02-16] MEDS ORDERED: Iopamidol - 370 500 ML MLS IVP ONE (08:19)
[2022-02-16 08:21] LABS: Eosinophils # 0.7 K/mcL (0.0-0.6); Lymphocytes # 4.3 K/mcL (0.6-4.6); Neutrophils # 9.6 K/mcL (1.6-8.9)
[2022-02-16 08:22] LABS: Platelet Estimate Normal (Normal)
[2022-02-16] MEDS ORDERED: Insulin Regular, Human 100 UNIT/ML IV SCH (08:30)
[2022-02-16] MEDS ORDERED: POTASSIUM CHLORIDE IN 0.9%NACL 40 MEQ/1,000 ML IV.SOLN IV ONE (08:35)
[2022-02-16] MEDS ORDERED: *HR* Dextrose 50 % in Water (Syg) 50 ML SYRINGE IVP PRN (08:43)
[2022-02-16] MEDS ORDERED: Naloxone 0.4 MG/ML INJ IVP PRN (09:22)
[2022-02-16] MEDS ORDERED: cefTRIAXone 1,000 MG in 0.9 % Sodium Chloride 10 ML IVP ONE (09:24)
[2022-02-16] MEDS ORDERED: cefTRIAXone 2,000 MG in 0.9 % Sodium Chloride 20 ML IVP ONE (09:24)
[2022-02-16] MEDS ORDERED: *HR* Heparin 5,000 UNIT/ML VIAL SQ SCH (09:30)
[2022-02-16] MEDS ORDERED: Vancomycin 1,750 MG in 0.9 % Sodium Chloride 250 ML IVPB SCH (10:00)
[2022-02-16] MEDS: 0.9 % Sodium Chloride w KCl 20 MEQ/1,000 ML MLS IVC SCH ×2 (10:14→14:59)
[2022-02-16] MEDS ORDERED: *HR* OxyCODONE Immed Rel 5 MG TABLET PO ONE (11:08)
[2022-02-16 11:44] LABS: Bacteria,Urine Few per hpf (None-Few); Bilirubin,Urine Negative (Negative); Blood,Urine Negative (Negative); Clarity,Urine Turbid (Clear); Color,Urine Light-Yellow (Yellow); Glucose,Urine (UA) >=1000 mg/dL (Normal); Ketones,Urine Negative (Negative); Leukocyte Esterase,Urine Large (Negative); Nitrite,Urine Negative (Negative); PH,Urine 5.5 pH Units (5.0-8.0); Protein,Urine Trace mg/dL (Neg-Trace); Specific Gravity,Urine 1.028 (1.010-1.025); Urobilinogen,Urine Normal (Normal); WBC,Urine TNTC per hpf (0-3)
[2022-02-16 13:00] LABS: Potassium 4.1 mEq/L (3.5-5.1)
[2022-02-16] MEDS ORDERED: D5% in 0.45% NACL w KCl 20 MEQ/1,000 ML MLS IVC PRN (13:09)
[2022-02-16 13:29] LABS: Phosphorous 3.7 mg/dL (2.7-4.5)
[2022-02-16 14:40] VITALS: TEMP 98.5
[2022-02-16] MEDS ORDERED: SODIUM CHLORIDE MINI 0.9% IVPB SCH (16:00)
[2022-02-16] MEDS ORDERED: Piperacillin/Tazobactam 3.375 GM in 0.9 % Sodium Chloride Mini Bag 100 ML IVPB SCH (16:00)
[2022-02-16] MEDS ORDERED: TAZOBACTAM IVPB SCH (16:00)
[2022-02-16] MEDS ORDERED: PIPERACILLIN IVPB SCH (16:00)
[2022-02-16 16:02] LABS: VBG HCO3 28 mEq/L (21-27); VBG PCO2 55 mmHg (41-51); VBG PH 7.32 pH Units (7.32-7.42); VBG PO2 73 mmHg (25-50)
[2022-02-16] MEDS ORDERED: *HR* LORazepam 2 MG/ML VIAL IVP STA ×2 (16:22→17:51)
[2022-02-16 16:29] LABS: BUN/Creatinine Ratio 26 (6-26); Blood Urea Nitrogen 20 mg/dL (6-20); Calcium 8.6 mg/dL (8.6-10.3); Carbon Dioxide 25 mEq/L (23-29); Chloride 100 mEq/L (98-107); Glucose 64 mg/dL (70-105); Osmolality,Calculated 279 (280-300); Potassium 4.1 mEq/L (3.5-5.1); Sodium 134 mEq/L (136-145); eGFR For African Americans > 60 (> 60); eGFR For Non-African Americans > 60 (> 60)
[2022-02-16] MEDS ORDERED: Furosemide 40 MG/4 ML VIAL IVP SCH (16:30)
[2022-02-16] MEDS ORDERED: Dexmedetomidine HCl 400 MCG/100 ML MLS IVC SCH (16:30)
[2022-02-16] MEDS ORDERED: Insulin DETEMIR 100 UNIT/ML X5UNITS SUBQ ONE (16:33)
[2022-02-16] MEDS ORDERED: Dextrose Gel 15 GM/37.5 ML TUBE PO PRN ×2 (16:34)
[2022-02-16] MEDS ORDERED: D5% in Water 1,000 ML IVC PRN (16:34)
[2022-02-16] MEDS ORDERED: Insulin LISPRO 300 UNITS/3 ML VIAL SUBQ SCH ×2 (16:45→21:00)
[2022-02-16 17:03] VITALS: BP 129/76; O2SAT 98
[2022-02-16 17:20] VITALS: PULSE 99
[2022-02-16 17:33] LABS: BUN/Creatinine Ratio 27 (6-26); Blood Urea Nitrogen 21 mg/dL (6-20); Calcium 8.1 mg/dL (8.6-10.3); Carbon Dioxide 23 mEq/L (23-29); Chloride 98 mEq/L (98-107); Glucose 206 mg/dL (70-105); Osmolality,Calculated 281 (280-300); Potassium 4.2 mEq/L (3.5-5.1); Sodium 131 mEq/L (136-145); eGFR For African Americans > 60 (> 60); eGFR For Non-African Americans > 60 (> 60)
[2022-02-16] MEDS ORDERED: Insulin DETEMIR 100 UNIT/ML X5UNITS SUBQ SCH (21:00)
[2022-02-17] MEDS ORDERED: Vancomycin 1,750 MG/517.5 ML IV.SOLN IVPB SCH (06:00)
== END 2022-02-16 18:31 | disposition left against medical advice (07) ==
LOC: EMEROOARM 06:47 → ICNU 06:47 → OBSVTOIN 12:00 → ICNU 13:00
PROVIDERS: ADMIT Emergency Medicine; ATTEND Emergency Medicine

== ENCOUNTER 2022-02-22 10:49 | Inpatient (IN) ==
[2022-02-22] MEDS ORDERED: Ipratropium/Albuterol Neb 3 ML ONE (10:54)
[2022-02-22] MEDS ORDERED: methylPREDNISolone 125 MG/2 ML VIAL ONE (10:54)
[2022-02-22] MEDS ORDERED: Albuterol 2.5 MG/3 ML NEBULIZER ONE (10:54)
[2022-02-22] MEDS ORDERED: Albuterol 2.5 MG/3 ML NEBULIZER IH ONE (10:56)
[2022-02-22] MEDS ORDERED: Ipratropium/Albuterol Neb 3 ML IH ONE (10:56)
[2022-02-22] MEDS ORDERED: methylPREDNISolone 125 MG/2 ML VIAL IVP ONE (10:56)
[2022-02-22] MEDS ORDERED: Piperacillin/Tazobactam 3.375 GM in 0.9 % Sodium Chloride Mini Bag 100 ML IVPB ONE (10:59)
[2022-02-22] MEDS ORDERED: Vancomycin 1,750 MG in 0.9 % Sodium Chloride 250 ML IVPB ONE (10:59)
[2022-02-22 11:20] LABS: ABG Base Excess -3 mEq/L (-2 to 3); ABG HCO3 24 mEq/L (21-27); ABG Oxygen Saturation 100 % (95-98); ABG PCO2 50 mmHg (35-45); ABG PH 7.29 pH Units (7.32-7.45); ABG PO2 386 mmHg (85-104); ABG TCO2 25 mEq/L (20-26)
[2022-02-22] MEDS ORDERED: Iopamidol - 370 500 ML MLS IVP ONE (11:21)
[2022-02-22 11:45] LABS: Basophils # 0.1 K/mcL (0.0-0.2); Basophils % 0.8 %; Eosinophils # 0.4 K/mcL (0.0-0.6); Eosinophils % 2.5 %; Hematocrit 43.9 % (37.5-50.1); Hemoglobin 13.9 g/dL (12.9-16.9); Immature Granulocytes % 2.8 % (0-4); Lymphocytes # 2.6 K/mcL (0.6-4.6); Lymphocytes % 18.9 %; Mean Corpuscular HGB Conc 31.7 g/dL (31.6-35.5); Mean Corpuscular Volume 97.8 fL (83.0-100.0); Mean Platelet Volume 10.9 fL (9.4-12.4); Monocytes # 0.6 K/mcL (0.0-1.3); Monocytes % 4.2 %; Neutrophils # 9.8 K/mcL (1.6-8.9); Platelet Count 299 K/mcL (140-400); Red Blood Count 4.49 M/mcL (4.19-5.50); Red Cell Distribution Width 14.2 % (11.5-14.5); Segmented Neutrophils % 70.8 %; White Blood Count 13.9 K/mcL (4.3-11.1)
[2022-02-22] MEDS ORDERED: Vancomycin 1,750 MG/517.5 ML IV.SOLN IVPB ONE (12:00)
[2022-02-22 12:03] LABS: Alanine Aminotransferase 43 Units/L (7-52); Albumin 3.8 g/dL (3.5-5.7); Albumin/Globulin Ratio 1.2 (1.1-2.2); Alkaline Phosphatase 135 Units/L (34-104); Aspartate Amino Transferase 47 Units/L (13-39); BUN/Creatinine Ratio 24 (6-26); Bilirubin,Total 0.5 mg/dL (0.3-1.0); Blood Urea Nitrogen 21 mg/dL (6-20); Carbon Dioxide 27 mEq/L (23-29); Chloride 95 mEq/L (98-107); Ethanol < 10 mg/dL (Less than 10); Globulin 3.3 g/dL (2.4-3.5); Glucose 349 mg/dL (70-105); Osmolality,Calculated 297 (280-300); Potassium 3.6 mEq/L (3.5-5.1); Sodium 135 mEq/L (136-145); Total Protein 7.1 g/dL (6.4-8.9)
[2022-02-22 12:04] LABS: Troponin I 0.03 ng/mL (< 0.04)
[2022-02-22 12:48] LABS: Adenovirus Not Detected (Not Detect); Bordetella Pertussis Not Detected (Not Detect); Chlamydophila pneumoniae Not Detected (Not Detect); Coronavirus 229E Not Detected (Not Detect); Coronavirus HKU1 Not Detected (Not Detect); Coronavirus NL63 Not Detected (Not Detect); Coronavirus OC43 Not Detected (Not Detect); Human Metapneumovirus Not Detected (Not Detect); Human Rhinovirus/Enterovirus Not Detected (Not Detect); Influenza A Subtype 2009 H1 Not Detected (Not Detect); Influenza B Not Detected (Not Detect); Mycoplasma pneumoniae Not Detected (Not Detect); Parainfluenza Virus 1 Not Detected (Not Detect); Parainfluenza Virus 2 Not Detected (Not Detect); Parainfluenza Virus 3 Not Detected (Not Detect); Parainfluenza Virus 4 Not Detected (Not Detect); Respiratory Syncytial Virus Not Detected (Not Detect); SARS-CoV-2 Not Detected (Not Detect)
[2022-02-22] MEDS ORDERED: Furosemide 40 MG/4 ML VIAL IVP ONE (14:38)
[2022-02-22] MEDS ORDERED: Naloxone 0.4 MG/ML INJ IVP PRN (15:05)
[2022-02-22] MEDS ORDERED: Vancomycin 1,750 MG in 0.9 % Sodium Chloride 250 ML IVPB SCH (16:00)
[2022-02-22] MEDS ORDERED: D5% in Water 1,000 ML IVC PRN (16:01)
[2022-02-22] MEDS ORDERED: Dextrose Gel 15 GM/37.5 ML TUBE PO PRN ×2 (16:01)
[2022-02-22] MEDS ORDERED: *HR* Dextrose 50 % in Water (Syg) 50 ML SYRINGE IVP PRN (16:01)
[2022-02-22 16:52] LABS: Bilirubin,Urine Negative (Negative); Blood,Urine Negative (Negative); Budding Yeast,Urine Few per hpf (None Seen); Clarity,Urine Clear (Clear); Color,Urine Colorless (Yellow); Glucose,Urine (UA) 500 mg/dL (Normal); Ketones,Urine Negative (Negative); Leukocyte Esterase,Urine Moderate (Negative); Mucus,Urine Few per lpf (None-Few); Nitrite,Urine Negative (Negative); Protein,Urine Negative (Neg-Trace); Urobilinogen,Urine Normal (Normal); WBC,Urine 15-30 per hpf (0-3)
[2022-02-22] MEDS: Cefepime HCl 2,000 MG in 0.9 % Sodium Chloride 10 ML IVP SCH (16:57)
[2022-02-22] MEDS: Insulin LISPRO 300 UNITS/3 ML VIAL SUBQ SCH ×2 (17:00→21:01)
[2022-02-22] MEDS ORDERED: Ipratropium/Albuterol Neb 3 ML IH PRN (17:34)
[2022-02-22] MEDS ORDERED: Nicotine 2 MG GUM BC PRN (17:56)
[2022-02-22] MEDS: Nicotine 21 MG PATCH.TD24 TD SCH (18:01)
[2022-02-22] MEDS: Furosemide 40 MG/4 ML VIAL IVP SCH (21:00)
[2022-02-22] MEDS ORDERED: Insulin DETEMIR 100 UNIT/ML X5UNITS SUBQ SCH (21:00)
[2022-02-22] MEDS: Insulin DETEMIR 100 UNIT/ML X5UNITS SUBQ SCH (21:03)
[2022-02-23] MEDS: Cefepime HCl 2,000 MG in 0.9 % Sodium Chloride 10 ML IVP SCH ×2 (01:46→11:24)
[2022-02-23 02:49] LABS: Hematocrit 37.1 % (37.5-50.1); Mean Corpuscular HGB Conc 32.1 g/dL (31.6-35.5); Mean Corpuscular Hemoglobin 30.7 pg (28.0-33.3); Mean Corpuscular Volume 95.6 fL (83.0-100.0); Mean Platelet Volume 10.9 fL (9.4-12.4); Platelet Count 241 K/mcL (140-400); Red Blood Count 3.88 M/mcL (4.19-5.50); White Blood Count 13.4 K/mcL (4.3-11.1)
[2022-02-23 02:52] LABS: Hemoglobin 11.9 g/dL (12.9-16.9)
[2022-02-23 03:10] LABS: BUN/Creatinine Ratio 28 (6-26); Blood Urea Nitrogen 27 mg/dL (6-20); Calcium 8.8 mg/dL (8.6-10.3); Carbon Dioxide 35 mEq/L (23-29); Chloride 96 mEq/L (98-107); Glucose 280 mg/dL (70-105); Magnesium 1.8 mg/dL (1.6-2.6); Osmolality,Calculated 303 (280-300); Potassium 3.9 mEq/L (3.5-5.1); Sodium 139 mEq/L (136-145)
[2022-02-23] MEDS: Nicotine 21 MG PATCH.TD24 TD SCH (08:13)
[2022-02-23] MEDS: Insulin LISPRO 300 UNITS/3 ML VIAL SUBQ SCH ×4 (08:15→21:01)
[2022-02-23] MEDS ORDERED: Acetaminophen 325 MG TABLET PO PRN (08:51)
[2022-02-23 08:53] LABS: VBG HCO3 29 mEq/L (21-27); VBG PCO2 32 mmHg (41-51); VBG PH 7.56 pH Units (7.32-7.42); VBG PO2 202 mmHg (25-50)
[2022-02-23 09:27] LABS: Amphetamine Screen,Urine Negative ng/mL (Cutoff=1000); Barbiturate Screen,Urine Negative ng/mL (Cutoff=200); Benzodiazepines Screen,Urine Negative ng/mL (Cutoff=200); Cannabinoid Screen,Urine Negative ng/mL (Cutoff = 50); Cocaine Screen,Urine Negative ng/mL (Cutoff= 300); Opiate Screen,Urine Negative ng/mL (Cutoff=300); Phencyclidine Screen,Urine Negative ng/mL (Cutoff=25)
[2022-02-23] MEDS: *HR* FentaNYL PATCH 25 MCG PATCH TD SCH (10:21)
[2022-02-23] MEDS: Furosemide 40 MG/4 ML VIAL IVP SCH ×2 (10:49→20:38)
[2022-02-23] MEDS ORDERED: Vancomycin 1,750 MG/517.5 ML IV.SOLN IVPB SCH (12:00)
[2022-02-23] MEDS ORDERED: Nitroglycerin 0.4 MG TAB.SUBL SL PRN (13:27)
[2022-02-23] MEDS ORDERED: Sennosides 8.6 MG TABLET PO PRN (13:27)
[2022-02-23] MEDS: *HR* OxyCODONE Immed Rel 5 MG TABLET PO PRN ×2 (14:53→21:00)
[2022-02-23] MEDS: clonazePAM 1 MG TABLET PO SCH ×2 (14:53→20:37)
[2022-02-23] MEDS: Gabapentin 400 MG CAPSULE PO SCH ×2 (14:54→20:38)
[2022-02-23] MEDS: Aspirin Enteric Coated 81 MG Tablet PO SCH (14:54)
[2022-02-23] MEDS: Piperacillin/Tazobactam 3.375 GM in 0.9 % Sodium Chloride Mini Bag 100 ML IVPB SCH (14:55)
[2022-02-23] MEDS: Melatonin 3 MG TABLET PO SCH (20:38)
[2022-02-23] MEDS: Insulin DETEMIR 100 UNIT/ML X5UNITS SUBQ SCH (21:00)
[2022-02-24] MEDS: Piperacillin/Tazobactam 3.375 GM in 0.9 % Sodium Chloride Mini Bag 100 ML IVPB SCH ×4 (00:15→23:53)
[2022-02-24 03:54] LABS: Magnesium 1.9 mg/dL (1.6-2.6)
[2022-02-24 03:55] LABS: Calcium 8.4 mg/dL (8.6-10.3); Potassium 4.4 mEq/L (3.5-5.1)
[2022-02-24] MEDS: Levothyroxine 25 MCG TABLET PO SCH (05:36)
[2022-02-24] MEDS: Aspirin Enteric Coated 81 MG Tablet PO SCH (09:15)
[2022-02-24] MEDS: Nicotine 21 MG PATCH.TD24 TD SCH (09:15)
[2022-02-24] MEDS: clonazePAM 1 MG TABLET PO SCH ×3 (09:16→20:30)
[2022-02-24] MEDS: Furosemide 40 MG/4 ML VIAL IVP SCH ×2 (09:16→20:31)
[2022-02-24] MEDS: Gabapentin 400 MG CAPSULE PO SCH ×3 (09:16→20:30)
[2022-02-24] MEDS: Cholecalciferol (D-3) 1,000 UNIT (25MCG) TABLET PO SCH (09:16)
[2022-02-24] MEDS: Insulin LISPRO 300 UNITS/3 ML VIAL SUBQ SCH ×4 (09:22→20:32)
[2022-02-24] MEDS: Ipratropium/Albuterol Neb 3 ML IH SCH ×3 (09:32→22:17)
[2022-02-24 19:03] LABS: Hematocrit 40.6 % (37.5-50.1); Hemoglobin 12.9 g/dL (12.9-16.9); Mean Corpuscular HGB Conc 31.8 g/dL (31.6-35.5); Mean Corpuscular Hemoglobin 30.7 pg (28.0-33.3); Mean Corpuscular Volume 96.7 fL (83.0-100.0); Mean Platelet Volume 11.1 fL (9.4-12.4); Platelet Count 319 K/mcL (140-400); Red Cell Distribution Width 14.3 % (11.5-14.5)
[2022-02-24 19:04] LABS: White Blood Count 21.6 K/mcL (4.3-11.1)
[2022-02-24] MEDS ORDERED: diazePAM 5 MG TABLET PO PRN ×4 (19:29)
[2022-02-24] MEDS ORDERED: diazePAM 10 MG/2 ML SYRINGE IVP PRN ×4 (19:29)
[2022-02-24] MEDS ORDERED: diazePAM 10 MG TABLET PO PRN (19:29)
[2022-02-24] MEDS: Melatonin 3 MG TABLET PO SCH (20:30)
[2022-02-24] MEDS: Insulin DETEMIR 100 UNIT/ML X5UNITS SUBQ SCH (20:31)
[2022-02-24] MEDS ORDERED: Vancomycin 1,750 MG/517.5 ML IV.SOLN IVPB ONE (21:00)
[2022-02-25] MEDS: *HR* OxyCODONE Immed Rel 5 MG TABLET PO PRN (01:47)
[2022-02-25 03:48] LABS: Basophils % 0.1 %; Hematocrit 35.8 % (37.5-50.1); Hemoglobin 11.5 g/dL (12.9-16.9); Immature Granulocytes % 0.9 % (0-4); Lymphocytes # 1.5 K/mcL (0.6-4.6); Lymphocytes % 7.5 %; Mean Corpuscular HGB Conc 32.1 g/dL (31.6-35.5); Mean Corpuscular Hemoglobin 30.7 pg (28.0-33.3); Mean Corpuscular Volume 95.5 fL (83.0-100.0); Mean Platelet Volume 11.3 fL (9.4-12.4); Monocytes # 1.3 K/mcL (0.0-1.3); Monocytes % 6.6 %; Neutrophils # 17.1 K/mcL (1.6-8.9); Platelet Count 235 K/mcL (140-400); Red Blood Count 3.75 M/mcL (4.19-5.50); Red Cell Distribution Width 14.3 % (11.5-14.5); Segmented Neutrophils % 84.9 %; White Blood Count 20.2 K/mcL (4.3-11.1)
[2022-02-25] MEDS: Ipratropium/Albuterol Neb 3 ML IH SCH ×2 (04:04→10:26)
[2022-02-25 04:07] LABS: Calcium 8.6 mg/dL (8.6-10.3); Magnesium 1.8 mg/dL (1.6-2.6); Potassium 4.3 mEq/L (3.5-5.1)
[2022-02-25] MEDS: Levothyroxine 25 MCG TABLET PO SCH (05:58)
[2022-02-25] MEDS ORDERED: Vancomycin 1,500 MG/265 ML IV.SOLN IVPB SCH (06:00)
[2022-02-25] MEDS ORDERED: Metoprolol XL (24 HR) Succ 50 MG TAB.ER.24H PO SCH (09:00)
[2022-02-25] MEDS: Insulin LISPRO 300 UNITS/3 ML VIAL SUBQ SCH ×3 (10:16→16:45)
[2022-02-25] MEDS: Nicotine 21 MG PATCH.TD24 TD SCH (10:18)
[2022-02-25] MEDS: Metoprolol XL (24 HR) Succ 50 MG TAB.ER.24H PO SCH (10:19)
[2022-02-25] MEDS: Gabapentin 400 MG CAPSULE PO SCH ×3 (10:19→21:22)
[2022-02-25] MEDS: Vitamin B Complex/Vit C/Vit E 1 EACH TABLET PO SCH (10:19)
[2022-02-25] MEDS: Thiamine (B-1) 100 MG TABLET PO SCH (10:20)
[2022-02-25] MEDS: Cholecalciferol (D-3) 1,000 UNIT (25MCG) TABLET PO SCH (10:20)
[2022-02-25] MEDS: *HR* FentaNYL PATCH 25 MCG PATCH TD SCH (10:21)
[2022-02-25] MEDS: Folic Acid 1 MG TABLET PO SCH (10:21)
[2022-02-25 10:22] LABS: Estimated Average Glucose 303 mg/dl; Hemoglobin A1C 12.2 %
[2022-02-25] MEDS ORDERED: Ipratropium/Albuterol Neb 3 ML IH PRN (10:22)
[2022-02-25] MEDS: Piperacillin/Tazobactam 3.375 GM in 0.9 % Sodium Chloride Mini Bag 100 ML IVPB SCH (10:27)
[2022-02-25] MEDS: Aspirin Enteric Coated 81 MG Tablet PO SCH (10:27)
[2022-02-25] MEDS: clonazePAM 1 MG TABLET PO SCH ×3 (10:34→21:00)
[2022-02-25] MEDS ORDERED: Albumin 25% 25gram/100mL 25 GM/100 ML IV.SOLN IVPB ONE (12:05)
[2022-02-25] MEDS: Furosemide 20 MG/2 ML VIAL IVP SCH ×2 (12:54→21:22)
[2022-02-25] MEDS: levoFLOXacin 750 MG TABLET PO SCH (16:45)
[2022-02-25] MEDS: Melatonin 3 MG TABLET PO SCH (21:21)
[2022-02-26 01:54] LABS: Basophils % 0.3 %; Eosinophils # 0.1 K/mcL (0.0-0.6); Eosinophils % 0.5 %; Hematocrit 33.9 % (37.5-50.1); Immature Granulocytes % 1.1 % (0-4); Lymphocytes # 1.9 K/mcL (0.6-4.6); Lymphocytes % 14.6 %; Mean Corpuscular HGB Conc 32.4 g/dL (31.6-35.5); Mean Corpuscular Hemoglobin 30.4 pg (28.0-33.3); Mean Corpuscular Volume 93.6 fL (83.0-100.0); Mean Platelet Volume 10.9 fL (9.4-12.4); Monocytes % 7.6 %; Neutrophils # 9.8 K/mcL (1.6-8.9); Platelet Count 203 K/mcL (140-400); Red Blood Count 3.62 M/mcL (4.19-5.50); Segmented Neutrophils % 75.9 %; White Blood Count 12.9 K/mcL (4.3-11.1)
[2022-02-26 02:12] LABS: Calcium 8.3 mg/dL (8.6-10.3); Magnesium 1.9 mg/dL (1.6-2.6); Potassium 3.9 mEq/L (3.5-5.1)
[2022-02-26] MEDS: Insulin LISPRO 300 UNITS/3 ML VIAL SUBQ SCH ×3 (03:32→11:59)
[2022-02-26] MEDS: Insulin DETEMIR 100 UNIT/ML X5UNITS SUBQ SCH (03:33)
[2022-02-26 04:55] VITALS: BP 117/73; PULSE 83; TEMP 97.8; O2SAT 100
[2022-02-26] MEDS: Cholecalciferol (D-3) 1,000 UNIT (25MCG) TABLET PO SCH (08:31)
[2022-02-26] MEDS: Vitamin B Complex/Vit C/Vit E 1 EACH TABLET PO SCH (08:31)
[2022-02-26] MEDS: levoFLOXacin 750 MG TABLET PO SCH (08:31)
[2022-02-26] MEDS: Metoprolol XL (24 HR) Succ 50 MG TAB.ER.24H PO SCH (08:31)
[2022-02-26] MEDS: Folic Acid 1 MG TABLET PO SCH (08:31)
[2022-02-26] MEDS: Thiamine (B-1) 100 MG TABLET PO SCH (08:33)
[2022-02-26] MEDS: Gabapentin 400 MG CAPSULE PO SCH ×2 (08:33→16:33)
[2022-02-26] MEDS: Nicotine 21 MG PATCH.TD24 TD SCH (08:33)
[2022-02-26] MEDS: Aspirin Enteric Coated 81 MG Tablet PO SCH (08:33)
[2022-02-26] MEDS: Furosemide 20 MG/2 ML VIAL IVP SCH (08:38)
[2022-02-26] MEDS: clonazePAM 1 MG TABLET PO SCH ×2 (09:54→16:33)
[2022-02-26] MEDS: Levothyroxine 25 MCG TABLET PO SCH (09:57)
[2022-02-28] MEDS ORDERED: levoFLOXacin 750 MG TABLET PO SCH (09:00)
== END 2022-02-26 18:16 | disposition home or self-care (01) | DRG 871 ==
LOC: 2NENU 10:49 → EMEROOARM 10:49 → 2NENU 15:12 → SUATTDRO 16:45
PROVIDERS: ADMIT Internal Medicine; ATTEND Internal Medicine

== ENCOUNTER 2022-03-18 09:40 | Observation (INO) ==
[2022-03-18] MEDS ORDERED: Piperacillin/Tazobactam 3.375 GM in 0.9 % Sodium Chloride Mini Bag 100 ML IVPB ONE (10:14)
[2022-03-18] MEDS ORDERED: Vancomycin 1,750 MG/517.5 ML IV.SOLN IVPB ONE (10:14)
[2022-03-18] MEDS ORDERED: Ringers Solution, Lactated 1,000 ML IVC ONE (10:18)
[2022-03-18 11:13] LABS: Basophils # 0.1 K/mcL (0.0-0.2); Basophils % 0.3 %; Eosinophils # 0.2 K/mcL (0.0-0.6); Eosinophils % 1.1 %; Hematocrit 35.1 % (37.5-50.1); Hemoglobin 11.1 g/dL (12.9-16.9); Immature Granulocytes % 1.8 % (0-4); Lymphocytes # 1.2 K/mcL (0.6-4.6); Lymphocytes % 5.8 %; Mean Corpuscular HGB Conc 31.6 g/dL (31.6-35.5); Mean Corpuscular Hemoglobin 29.5 pg (28.0-33.3); Mean Corpuscular Volume 93.4 fL (83.0-100.0); Mean Platelet Volume 10.8 fL (9.4-12.4); Monocytes # 0.6 K/mcL (0.0-1.3); Neutrophils # 17.5 K/mcL (1.6-8.9); Platelet Count 350 K/mcL (140-400); Red Blood Count 3.76 M/mcL (4.19-5.50); Red Cell Distribution Width 14.7 % (11.5-14.5); White Blood Count 19.9 K/mcL (4.3-11.1)
[2022-03-18 11:17] LABS: VBG HCO3 25 mEq/L (21-27); VBG PCO2 48 mmHg (41-51); VBG PH 7.32 pH Units (7.32-7.42); VBG PO2 55 mmHg (25-50)
[2022-03-18 11:34] LABS: BUN/Creatinine Ratio 21 (6-26); Blood Urea Nitrogen 19 mg/dL (6-20); Calcium 8.6 mg/dL (8.6-10.3); Carbon Dioxide 23 mEq/L (23-29); Chloride 99 mEq/L (98-107); Glucose 321 mg/dL (70-105); Magnesium 1.6 mg/dL (1.6-2.6); Osmolality,Calculated 301 (280-300); Potassium 3.4 mEq/L (3.5-5.1); Sodium 138 mEq/L (136-145); Troponin I 0.03 ng/mL (< 0.04)
[2022-03-18 11:54] LABS: Influenza A PCR Negative (Negative); Influenza B PCR Negative (Negative); Resp. Syncytial Virus PCR Negative (Negative)
[2022-03-18 11:56] LABS: SARS-CoV-2 by PCR (In House) Negative (Negative)
[2022-03-18] MEDS ORDERED: Acetaminophen 325 MG TABLET PO PRN (13:47)
[2022-03-18] MEDS ORDERED: Ondansetron 4 MG/2 ML VIAL IVP PRN (13:47)
[2022-03-18] MEDS ORDERED: Melatonin 3 MG TABLET PO PRN (13:47)
[2022-03-18] MEDS ORDERED: Naloxone 0.4 MG/ML INJ IVP PRN (13:47)
[2022-03-18] MEDS ORDERED: MOM Conc 10 ML UD.LIQ PO PRN (13:47)
[2022-03-18] MEDS ORDERED: *HR* OxyCODONE Immed Rel 5 MG TABLET PO PRN (13:53)
[2022-03-18] MEDS ORDERED: D5% in Water 1,000 ML IVC PRN (13:54)
[2022-03-18] MEDS ORDERED: Dextrose Gel 15 GM/37.5 ML TUBE PO PRN ×2 (13:54)
[2022-03-18] MEDS ORDERED: *HR* Dextrose 50 % in Water (Syg) 50 ML SYRINGE IVP PRN (13:54)
[2022-03-18] MEDS ORDERED: *HR* LORazepam 1 MG TABLET PO PRN ×3 (14:01)
[2022-03-18 14:04] LABS: Bilirubin,Urine Negative (Negative); Blood,Urine Negative (Negative); Budding Yeast,Urine Many per hpf (None Seen); Clarity,Urine Turbid (Clear); Color,Urine Light-Yellow (Yellow); Glucose,Urine (UA) >=1000 mg/dL (Normal); Ketones,Urine Trace mg/dL (Negative); Leukocyte Esterase,Urine Large (Negative); Nitrite,Urine Negative (Negative); Protein,Urine 70 mg/dL (Neg-Trace); Specific Gravity,Urine 1.012 (1.010-1.025); Squamous Epithelial Cell,Urine Few per hpf (None-Few); Urobilinogen,Urine Normal (Normal); WBC,Urine TNTC per hpf (0-3)
[2022-03-18] MEDS ORDERED: Ipratropium Neb 0.5 MG NEBULIZER IH PRN (14:54)
[2022-03-18] MEDS: Levalbuterol Neb 0.63 MG/3 ML IH SCH ×2 (15:20→21:00)
[2022-03-18] MEDS: clonazePAM 1 MG TABLET PO SCH ×2 (16:04→22:16)
[2022-03-18] MEDS: Insulin LISPRO 300 UNITS/3 ML VIAL SUBQ SCH ×2 (16:09→22:16)
[2022-03-18] MEDS: Nicotine 21 MG PATCH.TD24 TD SCH (16:10)
[2022-03-18] MEDS: Nystatin SUSP 5 ML UD.LIQ PO SCH ×2 (16:13→22:16)
[2022-03-18] MEDS ORDERED: *HR* Heparin 5,000 UNIT/ML VIAL SQ SCH (18:00)
[2022-03-18] MEDS: Piperacillin/Tazobactam 3.375 GM in 0.9 % Sodium Chloride Mini Bag 100 ML IVPB SCH (18:02)
[2022-03-18] MEDS ORDERED: *HR* Heparin 5,000 UNIT/ML VIAL IVP PRN (18:16)
[2022-03-18] MEDS ORDERED: *HR* Heparin 5,000 UNIT/ML VIAL IVP ONE (18:16)
[2022-03-18 18:49] LABS: Heparin anti-factor XA UFH < 0.04 IU/mL (0.30-0.70); INR 1.2; Prothrombin Time 13.4 Seconds (9.4-12.1)
[2022-03-18 18:53] LABS: D-Dimer 847 ng/mLFEU (0-500)
[2022-03-18] MEDS: Heparin 25,000UNIT/250ML 1/2NS 25,000 UNIT/250 ML IV.SOLN IVC SCH (22:14)
[2022-03-18] MEDS: Lactobacillus 1 EACH CAP.SPRINK PO SCH (22:15)
[2022-03-19] MEDS ORDERED: Iopamidol - 370 500 ML MLS IVP ONE (00:09)
[2022-03-19] MEDS: Piperacillin/Tazobactam 3.375 GM in 0.9 % Sodium Chloride Mini Bag 100 ML IVPB SCH ×3 (02:56→18:09)
[2022-03-19 03:57] LABS: Heparin anti-factor XA UFH 0.11 IU/mL (0.30-0.70); INR 1.2; Prothrombin Time 13.7 Seconds (9.4-12.1)
[2022-03-19 04:03] LABS: VBG HCO3 29 mEq/L (21-27); VBG PCO2 53 mmHg (41-51); VBG PH 7.34 pH Units (7.32-7.42); VBG PO2 52 mmHg (25-50)
[2022-03-19 04:15] LABS: Basophils % 0.2 %; Eosinophils # 0.1 K/mcL (0.0-0.6); Eosinophils % 0.9 %; Hematocrit 31.9 % (37.5-50.1); Hemoglobin 10.2 g/dL (12.9-16.9); Immature Granulocytes % 0.6 % (0-4); Lymphocytes # 1.4 K/mcL (0.6-4.6); Lymphocytes % 10.9 %; Mean Corpuscular Hemoglobin 29.6 pg (28.0-33.3); Mean Corpuscular Volume 92.5 fL (83.0-100.0); Mean Platelet Volume 10.6 fL (9.4-12.4); Monocytes # 0.6 K/mcL (0.0-1.3); Monocytes % 4.7 %; Neutrophils # 10.7 K/mcL (1.6-8.9); Platelet Count 288 K/mcL (140-400); Red Blood Count 3.45 M/mcL (4.19-5.50); Red Cell Distribution Width 14.6 % (11.5-14.5); Segmented Neutrophils % 82.7 %; White Blood Count 12.9 K/mcL (4.3-11.1)
[2022-03-19] MEDS: Levalbuterol Neb 0.63 MG/3 ML IH SCH ×4 (04:27→22:34)
[2022-03-19 04:35] LABS: BUN/Creatinine Ratio 23 (6-26); Blood Urea Nitrogen 21 mg/dL (6-20); Calcium 8.4 mg/dL (8.6-10.3); Carbon Dioxide 30 mEq/L (23-29); Chloride 99 mEq/L (98-107); Glucose 120 mg/dL (70-105); Osmolality,Calculated 290 (280-300); Potassium 3.4 mEq/L (3.5-5.1); Sodium 138 mEq/L (136-145)
[2022-03-19] MEDS ORDERED: Potassium Chloride Elixir 20 MEQ/15 ML UDC PO ONE (07:59)
[2022-03-19] MEDS: Insulin LISPRO 300 UNITS/3 ML VIAL SUBQ SCH ×4 (08:17→21:18)
[2022-03-19] MEDS: Lactobacillus 1 EACH CAP.SPRINK PO SCH ×2 (08:27→21:17)
[2022-03-19] MEDS: Folic Acid 1 MG TABLET PO SCH (08:27)
[2022-03-19] MEDS: Aspirin Enteric Coated 81 MG Tablet PO SCH (08:27)
[2022-03-19] MEDS: clonazePAM 1 MG TABLET PO SCH ×3 (08:27→21:18)
[2022-03-19] MEDS: Vitamin B Complex/Vit C/Vit E 1 EACH TABLET PO SCH (08:28)
[2022-03-19] MEDS: Nystatin SUSP 5 ML UD.LIQ PO SCH ×4 (08:28→21:18)
[2022-03-19] MEDS: Thiamine (B-1) 100 MG TABLET PO SCH (08:28)
[2022-03-19] MEDS: Levothyroxine 25 MCG TABLET PO SCH (08:28)
[2022-03-19] MEDS: Nicotine 21 MG PATCH.TD24 TD SCH (08:39)
[2022-03-19] MEDS ORDERED: Furosemide 40 MG/4 ML VIAL IVP ONE (12:40)
[2022-03-19] MEDS: *HR* Heparin 5,000 UNIT/ML VIAL IVP PRN ×2 (13:49→21:21)
[2022-03-19] MEDS: Heparin 25,000UNIT/250ML 1/2NS 25,000 UNIT/250 ML IV.SOLN IVC SCH (20:01)
[2022-03-20] MEDS: Piperacillin/Tazobactam 3.375 GM in 0.9 % Sodium Chloride Mini Bag 100 ML IVPB SCH (02:47)
[2022-03-20] MEDS: Levalbuterol Neb 0.63 MG/3 ML IH SCH ×2 (03:18→09:59)
[2022-03-20 03:24] LABS: Basophils % 0.3 %; Eosinophils # 0.2 K/mcL (0.0-0.6); Eosinophils % 1.5 %; Hematocrit 29.9 % (37.5-50.1); Hemoglobin 9.5 g/dL (12.9-16.9); Immature Granulocytes % 0.9 % (0-4); Lymphocytes # 1.5 K/mcL (0.6-4.6); Lymphocytes % 12.7 %; Mean Corpuscular HGB Conc 31.8 g/dL (31.6-35.5); Mean Corpuscular Hemoglobin 29.3 pg (28.0-33.3); Mean Corpuscular Volume 92.3 fL (83.0-100.0); Mean Platelet Volume 10.7 fL (9.4-12.4); Monocytes # 0.7 K/mcL (0.0-1.3); Monocytes % 5.4 %; Neutrophils # 9.6 K/mcL (1.6-8.9); Platelet Count 255 K/mcL (140-400); Red Blood Count 3.24 M/mcL (4.19-5.50); Red Cell Distribution Width 14.8 % (11.5-14.5); Segmented Neutrophils % 79.2 %; White Blood Count 12.2 K/mcL (4.3-11.1)
[2022-03-20 03:46] LABS: BUN/Creatinine Ratio 21 (6-26); Blood Urea Nitrogen 17 mg/dL (6-20); Calcium 8.1 mg/dL (8.6-10.3); Carbon Dioxide 28 mEq/L (23-29); Chloride 99 mEq/L (98-107); Glucose 94 mg/dL (70-105); Magnesium 1.8 mg/dL (1.6-2.6); Osmolality,Calculated 285 (280-300); Potassium 3.3 mEq/L (3.5-5.1); Sodium 137 mEq/L (136-145)
[2022-03-20] MEDS: Levothyroxine 25 MCG TABLET PO SCH (06:00)
[2022-03-20 06:57] VITALS: O2SAT 97
[2022-03-20 07:43] VITALS: BP 143/71; PULSE 97; TEMP 98.3
[2022-03-20] MEDS: Insulin LISPRO 300 UNITS/3 ML VIAL SUBQ SCH (08:05)
[2022-03-20] MEDS: Aspirin Enteric Coated 81 MG Tablet PO SCH (08:20)
[2022-03-20] MEDS: Vitamin B Complex/Vit C/Vit E 1 EACH TABLET PO SCH (08:20)
[2022-03-20] MEDS: clonazePAM 1 MG TABLET PO SCH (08:21)
[2022-03-20] MEDS: Nicotine 21 MG PATCH.TD24 TD SCH (08:21)
[2022-03-20] MEDS: Folic Acid 1 MG TABLET PO SCH (08:21)
[2022-03-20] MEDS: Lactobacillus 1 EACH CAP.SPRINK PO SCH (08:21)
[2022-03-20] MEDS: Thiamine (B-1) 100 MG TABLET PO SCH (08:21)
[2022-03-20] MEDS: Nystatin SUSP 5 ML UD.LIQ PO SCH (08:21)
== END 2022-03-20 10:00 | disposition hospice, home (50) ==
LOC: 2NENU 09:40 → EMEROOARM 09:40 → 2NENU 15:12
PROVIDERS: ADMIT Internal Medicine; ATTEND Internal Medicine

== ENCOUNTER 2022-04-27 10:54 | Inpatient (IN) ==
[2022-04-27 13:44] LABS: Basophils % 0.1 %; Eosinophils % 0.1 %; Hematocrit 34.3 % (37.5-50.1); Hemoglobin 10.9 g/dL (12.9-16.9); Immature Granulocytes % 0.6 % (0-4); Lymphocytes # 1.2 K/mcL (0.6-4.6); Lymphocytes % 8.5 %; Mean Corpuscular HGB Conc 31.8 g/dL (31.6-35.5); Mean Corpuscular Hemoglobin 27.7 pg (28.0-33.3); Mean Corpuscular Volume 87.3 fL (83.0-100.0); Mean Platelet Volume 11.9 fL (9.4-12.4); Monocytes # 0.7 K/mcL (0.0-1.3); Monocytes % 4.8 %; Neutrophils # 12.3 K/mcL (1.6-8.9); Platelet Count 206 K/mcL (140-400); Red Blood Count 3.93 M/mcL (4.19-5.50); Red Cell Distribution Width 16.2 % (11.5-14.5); Segmented Neutrophils % 85.9 %; White Blood Count 14.4 K/mcL (4.3-11.1)
[2022-04-27] MEDS ORDERED: Ipratropium/Albuterol Neb 3 ML IH ONE (14:12)
[2022-04-27] MEDS ORDERED: methylPREDNISolone 125 MG/2 ML VIAL IVP ONE (14:12)
[2022-04-27 14:17] LABS: Alanine Aminotransferase 17 Units/L (7-52); Albumin 3.7 g/dL (3.5-5.7); Albumin/Globulin Ratio 1.4 (1.1-2.2); Alkaline Phosphatase 132 Units/L (34-104); Aspartate Amino Transferase 35 Units/L (13-39); BUN/Creatinine Ratio 28 (6-26); Bilirubin,Direct 0.3 mg/dL (0.0-0.2); Bilirubin,Indirect 0.8 mg/dL (0.0-1.0); Bilirubin,Total 1.1 mg/dL (0.3-1.0); Blood Urea Nitrogen 27 mg/dL (6-20); Calcium 8.7 mg/dL (8.6-10.3); Carbon Dioxide 21 mEq/L (23-29); Chloride 97 mEq/L (98-107); Globulin 2.7 g/dL (2.4-3.5); Glucose 424 mg/dL (70-105); Osmolality,Calculated 287 (280-300); Potassium 5.3 mEq/L (3.5-5.1); Sodium 127 mEq/L (136-145); Total Protein 6.4 g/dL (6.4-8.9); Troponin I 3.66 ng/mL (< 0.04)
[2022-04-27] MEDS ORDERED: Insulin Human Regular 10 UNIT in 0.9 % Sodium Chloride 10 ML IV ONE (14:18)
[2022-04-27] MEDS ORDERED: *HR* Heparin 5,000 UNIT/ML VIAL IVP ONE (14:25)
[2022-04-27] MEDS ORDERED: *HR* Heparin 5,000 UNIT/ML VIAL IVP PRN (14:25)
[2022-04-27] MEDS: Heparin 25,000UNIT/250ML 1/2NS 25,000 UNIT/250 ML IV.SOLN IVC SCH (14:34)
[2022-04-27] MEDS ORDERED: Aspirin 81 MG TAB.CHEW PO STA (14:35)
[2022-04-27] MEDS ORDERED: Naloxone 0.4 MG/ML INJ IVP PRN (15:32)
[2022-04-27] MEDS ORDERED: Furosemide 20 MG/2 ML VIAL IVP ONE (16:13)
[2022-04-27] MEDS ORDERED: Dextrose Gel 15 GM/37.5 ML TUBE PO PRN ×2 (16:19)
[2022-04-27] MEDS ORDERED: D5% in Water 1,000 ML IVC PRN (16:19)
[2022-04-27 17:00] LABS: Heparin anti-factor XA UFH 0.44 IU/mL (0.30-0.70)
[2022-04-27 17:01] LABS: INR 1.3; Prothrombin Time 14.1 Seconds (9.4-12.1)
[2022-04-27] MEDS: Insulin LISPRO 300 UNITS/3 ML VIAL SUBQ SCH ×2 (17:02→20:19)
[2022-04-27] MEDS: cefTRIAXone 1,000 MG in 0.9 % Sodium Chloride 10 ML IVP SCH (17:08)
[2022-04-28] MEDS: *HR* Heparin 5,000 UNIT/ML VIAL IVP PRN ×2 (00:24→10:29)
[2022-04-28 02:49] LABS: Basophils % 0.2 %; Hematocrit 38.2 % (37.5-50.1); Hemoglobin 11.7 g/dL (12.9-16.9); Immature Granulocytes % 0.7 % (0-4); Lymphocytes % 8.6 %; Mean Corpuscular HGB Conc 30.6 g/dL (31.6-35.5); Mean Corpuscular Hemoglobin 27.5 pg (28.0-33.3); Mean Corpuscular Volume 89.9 fL (83.0-100.0); Mean Platelet Volume 11.9 fL (9.4-12.4); Monocytes # 0.1 K/mcL (0.0-1.3); Monocytes % 0.9 %; Neutrophils # 10.7 K/mcL (1.6-8.9); Platelet Count 195 K/mcL (140-400); Red Blood Count 4.25 M/mcL (4.19-5.50); Red Cell Distribution Width 16.5 % (11.5-14.5); Segmented Neutrophils % 89.6 %
[2022-04-28 03:08] LABS: Chol/HDL Ratio 3.9 (0-4.9)
[2022-04-28 03:15] LABS: Potassium 5.3 mEq/L (3.5-5.1); Troponin I 4.98 ng/mL (< 0.04)
[2022-04-28 03:22] LABS: Estimated Average Glucose 212 mg/dl
[2022-04-28] MEDS: Metoprolol XL (24 HR) Succ 50 MG TAB.ER.24H PO SCH (08:24)
[2022-04-28] MEDS: Aspirin Enteric Coated 81 MG Tablet PO SCH (08:24)
[2022-04-28] MEDS: Insulin LISPRO 300 UNITS/3 ML VIAL SUBQ SCH ×4 (08:24→20:06)
[2022-04-28] MEDS: Nicotine 21 MG PATCH.TD24 TD SCH (11:51)
[2022-04-28] MEDS: Heparin 25,000UNIT/250ML 1/2NS 25,000 UNIT/250 ML IV.SOLN IVC SCH (13:37)
[2022-04-28] MEDS: FLUCONAZOLE 200 MG/5 ML PO SCH (14:35)
[2022-04-28] MEDS ORDERED: cephALEXin 500 MG CAPSULE PO SCH (15:00)
[2022-04-28] MEDS ORDERED: *HR* Heparin 10,000 UNIT/10 ML VIAL ONE (15:42)
[2022-04-28] MEDS ORDERED: Nitroglycerin 1,000 MCG/5 ML VIAL IV ONE (15:42)
[2022-04-28] MEDS ORDERED: Iopamidol - 370 200 ML INFUS..BTL ONE (15:42)
[2022-04-28] MEDS ORDERED: Heparin 1,000 UNITS/500 mL 500 ML ONE (15:42)
[2022-04-28] MEDS ORDERED: 0.9 % Sodium Chloride 1,000 ML ONE (15:42)
[2022-04-28] MEDS ORDERED: *HR* FentaNYL (PF) 100 MCG/2 ML VIAL ONE (16:35)
[2022-04-28] MEDS ORDERED: *HR* Midazolam HCl 2 MG/2 ML VIAL ONE (16:36)
[2022-04-28] MEDS: cefTRIAXone 1,000 MG in 0.9 % Sodium Chloride 10 ML IVP SCH (17:51)
[2022-04-28] MEDS: Gabapentin 400 MG CAPSULE PO SCH (20:40)
[2022-04-28] MEDS: clonazePAM 1 MG TABLET PO SCH (23:21)
[2022-04-28] MEDS: Nitroglycerin 0.4 MG TAB.SUBL SL PRN (23:21)
[2022-04-29] MEDS: Nitroglycerin 0.4 MG TAB.SUBL SL PRN (08:11)
[2022-04-29] MEDS: Insulin LISPRO 300 UNITS/3 ML VIAL SUBQ SCH ×3 (08:19→16:38)
[2022-04-29] MEDS: Aspirin Enteric Coated 81 MG Tablet PO SCH (08:19)
[2022-04-29] MEDS: clonazePAM 1 MG TABLET PO SCH ×3 (08:19→19:39)
[2022-04-29] MEDS: Nicotine 21 MG PATCH.TD24 TD SCH (08:19)
[2022-04-29] MEDS: Gabapentin 400 MG CAPSULE PO SCH ×3 (08:19→19:39)
[2022-04-29] MEDS: Metoprolol XL (24 HR) Succ 50 MG TAB.ER.24H PO SCH (08:19)
[2022-04-29] MEDS: FLUCONAZOLE 200 MG/5 ML PO SCH (08:22)
[2022-04-29] MEDS: Heparin 25,000UNIT/250ML 1/2NS 25,000 UNIT/250 ML IV.SOLN IVC SCH ×2 (08:46→16:51)
[2022-04-29] MEDS ORDERED: Iopamidol - 370 500 ML MLS IVP ONE ×2 (10:58→15:13)
[2022-04-29 11:17] LABS: Mean Corpuscular Volume 87.1 fL (83.0-100.0); Mean Platelet Volume 12.7 fL (9.4-12.4)
[2022-04-29 11:18] LABS: Hematocrit 34.4 % (37.5-50.1); Hemoglobin 10.9 g/dL (12.9-16.9); Mean Corpuscular HGB Conc 31.7 g/dL (31.6-35.5); Mean Corpuscular Hemoglobin 27.6 pg (28.0-33.3); Platelet Count 256 K/mcL (140-400); Red Blood Count 3.95 M/mcL (4.19-5.50); Red Cell Distribution Width 16.7 % (11.5-14.5)
[2022-04-29 11:22] LABS: White Blood Count 34.6 K/mcL (4.3-11.1)
[2022-04-29 11:57] LABS: Calcium 8.2 mg/dL (8.6-10.3); Potassium 7.6 mEq/L (3.5-5.1); Troponin I 7.02 ng/mL (< 0.04)
[2022-04-29 12:41] LABS: Nucleated Red Blood Cells 0.1 /100 WBC (0); Red Cell Distribution Width 16.8 % (11.5-14.5)
[2022-04-29 12:43] LABS: Hematocrit 35.4 % (37.5-50.1); Hemoglobin 11.1 g/dL (12.9-16.9); Mean Corpuscular HGB Conc 31.4 g/dL (31.6-35.5); Mean Corpuscular Hemoglobin 27.7 pg (28.0-33.3); Mean Corpuscular Volume 88.3 fL (83.0-100.0); Mean Platelet Volume 12.5 fL (9.4-12.4); Platelet Count 255 K/mcL (140-400); Red Blood Count 4.01 M/mcL (4.19-5.50)
[2022-04-29 12:47] LABS: White Blood Count 35.8 K/mcL (4.3-11.1)
[2022-04-29] MEDS ORDERED: Insulin Human Regular 10 UNIT in 0.9 % Sodium Chloride 10 ML IV ONE ×2 (13:03→13:06)
[2022-04-29] MEDS ORDERED: 0.9 % Sodium Chloride 1,000 ML ONE ×2 (13:04→13:52)
[2022-04-29] MEDS ORDERED: *HR* Dextrose 50 % in Water (Vial) 50 ML VIAL IVP ONE (13:06)
[2022-04-29] MEDS ORDERED: Calcium Gluconate 1gm/50mL 1 GM/50 ML BAG IVPB ONE (13:06)
[2022-04-29 13:19] LABS: Lymphocytes # 1.8 K/mcL (0.6-4.6); Monocytes # 1.8 K/mcL (0.0-1.3); Neutrophils # 31.5 K/mcL (1.6-8.9)
[2022-04-29 13:20] LABS: Anisocytosis 1+ (Not Present); Platelet Estimate Normal (Normal); Poikilocytosis 1+ (Not Present)
[2022-04-29] MEDS: Norepinephrine 4 MG/254 ML IV.SOLN IVC SCH ×10 (13:33→17:34)
[2022-04-29] MEDS ORDERED: SODIUM CHLORIDE IH ONE (13:34)
[2022-04-29] MEDS ORDERED: ALBUTEROL IH ONE (13:34)
[2022-04-29] MEDS ORDERED: SODIUM ZIRCONIUM CYCLOSILICATE 5 GM POWD.PACK PO ONE (13:36)
[2022-04-29] MEDS ORDERED: Ondansetron 4 MG/2 ML VIAL IVP PRN ×2 (13:41→15:13)
[2022-04-29] MEDS: *HR* Dextrose 50 % in Water (Syg) 50 ML SYRINGE IVP PRN ×2 (13:44→13:49)
[2022-04-29] MEDS ORDERED: SODIUM ZIRCONIUM CYCLOSILICATE 5 GM POWD.PACK PO SCH ×2 (13:45→19:45)
[2022-04-29] MEDS ORDERED: D5% in Water 250 ML ONE (13:51)
[2022-04-29] MEDS ORDERED: *HR* Heparin 10,000 UNIT/10 ML VIAL ONE (13:51)
[2022-04-29] MEDS ORDERED: Iopamidol - 370 200 ML INFUS..BTL ONE (13:52)
[2022-04-29] MEDS ORDERED: Heparin 1,000 UNITS/500 mL 500 ML ONE ×2 (13:52→14:15)
[2022-04-29] MEDS ORDERED: Nitroglycerin 1,000 MCG/5 ML VIAL IV ONE (13:52)
[2022-04-29] MEDS ORDERED: *HR* Heparin 5,000 UNIT/ML VIAL ONE (13:57)
[2022-04-29] MEDS ORDERED: *HR* Atropine Sulfate 1 MG/10 ML SYRINGE ONE (13:58)
[2022-04-29] MEDS ORDERED: *HR* EPINEPHrine 1 MG/10 ML SYRINGE ONE (13:58)
[2022-04-29 14:00] LABS: Calcium 8.3 mg/dL (8.6-10.3); Potassium 7.2 mEq/L (3.5-5.1); Troponin I 6.74 ng/mL (< 0.04)
[2022-04-29] MEDS ORDERED: niCARdipine 0 MG/0 ML MLS IVC ONE (14:19)
[2022-04-29] MEDS ORDERED: NiCARdipine 2.5 MG/10 ML Syringe IVPB ONE (14:19)
[2022-04-29] MEDS ORDERED: *HR* Vasopressin 20 UNIT/ML VIAL ONE (14:20)
[2022-04-29 14:23] LABS: ABG Base Excess -12 mEq/L (-2 to 3); ABG HCO3 12 mEq/L (21-27); ABG Oxygen Saturation 100 % (95-98); ABG PCO2 22 mmHg (35-45); ABG PH 7.35 pH Units (7.32-7.45); ABG PO2 211 mmHg (85-104); ABG TCO2 13 mEq/L (20-26)
[2022-04-29] MEDS ORDERED: 0.9 % Sodium Chloride 500 ML ONE (14:31)
[2022-04-29] MEDS ORDERED: *HR* Heparin 5,000 UNIT/ML VIAL IVP PRN ×3 (15:13→16:06)
[2022-04-29] MEDS ORDERED: Dextrose Gel 15 GM/37.5 ML TUBE PO PRN ×2 (15:13)
[2022-04-29] MEDS ORDERED: Naloxone 0.4 MG/ML INJ IVP PRN (15:13)
[2022-04-29] MEDS ORDERED: D5% in Water 1,000 ML IVC PRN (15:13)
[2022-04-29] MEDS ORDERED: *HR* Dextrose 50 % in Water (Syg) 50 ML SYRINGE IVP PRN (15:13)
[2022-04-29] MEDS ORDERED: Nitroglycerin 0.4 MG TAB.SUBL SL PRN (15:13)
[2022-04-29] MEDS ORDERED: Sodium Bicarbonate 150 MEQ in D5% in Water 1,000 ML IVC SCH (15:30)
[2022-04-29] MEDS ORDERED: *HR* Heparin 5,000 UNIT/ML VIAL IVP ONE (16:35)
[2022-04-29] MEDS: cefTRIAXone 1,000 MG in 0.9 % Sodium Chloride 10 ML IVP SCH (16:37)
[2022-04-29] MEDS: 0.9 % Sodium Chloride 1,000 ML PRIME SCH ×4 (16:48→18:26)
[2022-04-29 17:19] LABS: Alanine Aminotransferase 4137 Units/L (7-52); Albumin 3.3 g/dL (3.5-5.7); Albumin/Globulin Ratio 1.5 (1.1-2.2); Alkaline Phosphatase 228 Units/L (34-104); Aspartate Amino Transferase > 3000 Units/L (13-39); BUN/Creatinine Ratio 29 (6-26); Bilirubin,Direct 1.1 mg/dL (0.0-0.2); Bilirubin,Indirect 0.5 mg/dL (0.0-1.0); Bilirubin,Total 1.6 mg/dL (0.3-1.0); Blood Urea Nitrogen 84 mg/dL (6-20); Calcium 9.4 mg/dL (8.6-10.3); Carbon Dioxide 16 mEq/L (23-29); Chloride 95 mEq/L (98-107); Globulin 2.2 g/dL (2.4-3.5); Glucose 266 mg/dL (70-105); Osmolality,Calculated 307 (280-300); Sodium 131 mEq/L (136-145); Total Protein 5.5 g/dL (6.4-8.9)
[2022-04-29] MEDS: PrismaSATE BGK 4/2.5 5,000 ML CRRT SCH ×6 (17:23→23:50)
[2022-04-29] MEDS ORDERED: Ipratropium/Albuterol Neb 3 ML ONE (20:39)
[2022-04-29] MEDS: *HR* OxyCODONE/APAP 10/325 TABLET PO PRN (20:41)
[2022-04-29] MEDS ORDERED: Insulin LISPRO 300 UNITS/3 ML VIAL SUBQ SCH (21:00)
[2022-04-29 21:45] LABS: Bilirubin,Urine Negative (Negative); Blood,Urine Small (Negative); Budding Yeast,Urine Moderate per hpf (None Seen); Clarity,Urine Turbid (Clear); Color,Urine Yellow (Yellow); Glucose,Urine (UA) Normal (Normal); Ketones,Urine Trace mg/dL (Negative); Leukocyte Esterase,Urine Large (Negative); Mucus,Urine Few per lpf (None-Few); Nitrite,Urine Negative (Negative); PH,Urine 5.5 pH Units (5.0-8.0); Protein,Urine 100 mg/dL (Neg-Trace); Specific Gravity,Urine > 1.030 (1.010-1.025); Sperm,Urine Present per hpf (None Seen); Urobilinogen,Urine Normal (Normal); WBC,Urine TNTC per hpf (0-3)
[2022-04-30] MEDS: 0.9 % Sodium Chloride 1,000 ML PRIME SCH ×5 (00:23→05:08)
[2022-04-30] MEDS: Norepinephrine 4 MG/254 ML IV.SOLN IVC SCH ×2 (01:24→17:14)
[2022-04-30] MEDS: PrismaSATE BGK 4/2.5 5,000 ML CRRT SCH ×9 (02:27→21:57)
[2022-04-30 03:55] LABS: Hematocrit 33.5 % (37.5-50.1); Hemoglobin 10.9 g/dL (12.9-16.9); Mean Corpuscular HGB Conc 32.5 g/dL (31.6-35.5); Mean Corpuscular Hemoglobin 27.7 pg (28.0-33.3); Mean Corpuscular Volume 85.2 fL (83.0-100.0); Mean Platelet Volume 12.7 fL (9.4-12.4); Platelet Count 254 K/mcL (140-400); Red Blood Count 3.93 M/mcL (4.19-5.50); Red Cell Distribution Width 16.7 % (11.5-14.5); White Blood Count 29.5 K/mcL (4.3-11.1)
[2022-04-30 04:03] LABS: VBG Ionized Calcium 0.96 mmol/L (1.15-1.35)
[2022-04-30 04:14] LABS: Calcium 7.8 mg/dL (8.6-10.3); Magnesium 2.3 mg/dL (1.6-2.6); Phosphorous 5.3 mg/dL (2.7-4.5); Potassium 4.8 mEq/L (3.5-5.1)
[2022-04-30] MEDS ORDERED: 0.9 % Sodium Chloride 1,000 ML PRIME PRN (05:10)
[2022-04-30] MEDS ORDERED: Calcium Gluconate 1gm/50mL 1 GM/50 ML BAG IVPB ONE (06:13)
[2022-04-30] MEDS ORDERED: EPINEPHrine 1 MG/ML VIAL ONE (07:03)
[2022-04-30] MEDS ORDERED: Lidocaine -MPF 2% 2 ML VIAL ONE (07:03)
[2022-04-30] MEDS ORDERED: Dexmedetomidine HCl 400 MCG/100 ML MLS IVC ONE (07:04)
[2022-04-30] MEDS ORDERED: *HR* Midazolam HCl 5 MG/5 ML VIAL IVP ONE (07:05)
[2022-04-30] MEDS ORDERED: *HR* FentaNYL (PF) 250 MCG/5 ML VIAL ONE (07:05)
[2022-04-30] MEDS ORDERED: Heparin 1,000 UNITS/500 mL 500 ML ONE ×5 (07:11→10:58)
[2022-04-30] MEDS ORDERED: 0.9 % Sodium Chloride 1,000 ML ONE ×3 (07:11→11:32)
[2022-04-30] MEDS ORDERED: *HR* Heparin 10,000 UNIT/10 ML VIAL ONE ×3 (07:11→10:23)
[2022-04-30] MEDS ORDERED: Iopamidol - 370 200 ML INFUS..BTL ONE ×2 (07:11→08:31)
[2022-04-30] MEDS ORDERED: Nitroglycerin 1,000 MCG/5 ML VIAL IV ONE (07:11)
[2022-04-30 07:21] LABS: ABG Base Excess -5 mEq/L (-2 to 3); ABG HCO3 20 mEq/L (21-27); ABG Oxygen Saturation 99 % (95-98); ABG PCO2 33 mmHg (35-45); ABG PH 7.39 pH Units (7.32-7.45); ABG PO2 152 mmHg (85-104); ABG TCO2 21 mEq/L (20-26)
[2022-04-30] MEDS ORDERED: *HR* Etomidate 20 MG/10 ML AMPUL IVP ONE (08:24)
[2022-04-30] MEDS ORDERED: *HR* Rocuronium Bromide 50 MG/5 ML VIAL IVP ONE (08:24)
[2022-04-30] MEDS: Insulin LISPRO 300 UNITS/3 ML VIAL SUBQ SCH ×4 (08:24→20:17)
[2022-04-30] MEDS ORDERED: Lidocaine -MPF 4% 5 ML AMPUL TP ONE (08:24)
[2022-04-30] MEDS ORDERED: Lidocaine -MPF 2% 5 ML VIAL SQ ONE (08:24)
[2022-04-30] MEDS: Nicotine 21 MG PATCH.TD24 TD SCH (08:25)
[2022-04-30] MEDS: clonazePAM 1 MG TABLET PO SCH ×3 (08:25→20:11)
[2022-04-30] MEDS: Gabapentin 400 MG CAPSULE PO SCH ×3 (08:25→20:11)
[2022-04-30] MEDS: Metoprolol XL (24 HR) Succ 50 MG TAB.ER.24H PO SCH (08:25)
[2022-04-30] MEDS: Aspirin Enteric Coated 81 MG Tablet PO SCH (08:26)
[2022-04-30] MEDS: FLUCONAZOLE 200 MG/5 ML PO SCH (08:26)
[2022-04-30] MEDS ORDERED: Heparin 25,000 UNIT/250 ML 25,000 UNIT/250 ML IV.SOLN ONE (11:36)
[2022-04-30] MEDS ORDERED: WATER IVC SCH (12:15)
[2022-04-30] MEDS ORDERED: D5 IVC SCH (12:15)
[2022-04-30] MEDS ORDERED: HEPARIN IVC SCH (12:15)
[2022-04-30] MEDS ORDERED: *HR* Midazolam HCl 2 MG/2 ML VIAL ONE (12:38)
[2022-04-30] MEDS: Heparin 25,000UNIT/250ML 1/2NS 25,000 UNIT/250 ML IV.SOLN IVC SCH (14:25)
[2022-04-30] MEDS ORDERED: D5% in Water 250 ML ONE (14:37)
[2022-04-30] MEDS ORDERED: Artificial Tears SOLN 15 ML BOTTLE BOTH EYES PRN (15:34)
[2022-04-30] MEDS ORDERED: FentaNYL (PF) 1,000 MCG/100 ML IV.SOLN IVC SCH ×2 (15:45)
[2022-04-30] MEDS ORDERED: Midazolam HCl 50 MG/50 ML IV.SOLN IVC SCH (15:45)
[2022-04-30] MEDS: D5 IVC SCH (15:50)
[2022-04-30] MEDS: SODIUM BICARBONATE IVC SCH (15:50)
[2022-04-30] MEDS: WATER IVC SCH (15:50)
[2022-04-30] MEDS: Artificial Tears SOLN 15 ML BOTTLE BOTH EYES SCH ×2 (16:12→20:19)
[2022-04-30] MEDS: Dexmedetomidine HCl 400 MCG/100 ML MLS IVC SCH ×2 (16:12→16:53)
[2022-04-30] MEDS: Pantoprazole 40 MG VIAL IVP SCH (16:16)
[2022-04-30] MEDS: cefTRIAXone 1,000 MG in 0.9 % Sodium Chloride 10 ML IVP SCH (16:17)
[2022-04-30 16:32] LABS: Hemoglobin 9.7 g/dL (12.9-16.9); Red Cell Distribution Width 16.6 % (11.5-14.5)
[2022-04-30 16:34] LABS: Hematocrit 29.9 % (37.5-50.1); Immature Platelets 13.9 % (1.1-6.1); Mean Corpuscular HGB Conc 32.4 g/dL (31.6-35.5); Mean Corpuscular Volume 86.4 fL (83.0-100.0); Mean Platelet Volume 12.6 fL (9.4-12.4); Nucleated Red Blood Cells 0.5 /100 WBC (0); Platelet Count 200 K/mcL (140-400); Red Blood Count 3.46 M/mcL (4.19-5.50); White Blood Count 26.1 K/mcL (4.3-11.1)
[2022-04-30 16:53] LABS: Neutrophils # 25.1 K/mcL (1.6-8.9)
[2022-04-30 16:54] LABS: Hypochromasia Present (Not Present); Poikilocytosis 1+ (Not Present)
[2022-04-30 16:55] LABS: Large Platelets Present (Not Present); Platelet Estimate Normal (Normal)
[2022-04-30 17:07] LABS: Albumin 2.9 g/dL (3.5-5.7); Albumin/Globulin Ratio 1.4 (1.1-2.2); Alkaline Phosphatase 244 Units/L (34-104); BUN/Creatinine Ratio 33 (6-26); Bilirubin,Direct 1.3 mg/dL (0.0-0.2); Bilirubin,Indirect 1.4 mg/dL (0.0-1.0); Bilirubin,Total 2.7 mg/dL (0.3-1.0); Blood Urea Nitrogen 48 mg/dL (6-20); Calcium 7.6 mg/dL (8.6-10.3); Carbon Dioxide 18 mEq/L (23-29); Chloride 99 mEq/L (98-107); Globulin 2.1 g/dL (2.4-3.5); Glucose 277 mg/dL (70-105); Osmolality,Calculated 293 (280-300); Potassium 5.3 mEq/L (3.5-5.1); Sodium 130 mEq/L (136-145); Troponin I 6.37 ng/mL (< 0.04)
[2022-04-30 17:18] LABS: Alanine Aminotransferase 4347 Units/L (7-52); Aspartate Amino Transferase > 3000 Units/L (13-39)
[2022-04-30 17:31] LABS: ABG Base Excess -5 mEq/L (-2 to 3); ABG HCO3 21 mEq/L (21-27); ABG Oxygen Saturation 99 % (95-98); ABG PCO2 38 mmHg (35-45); ABG PH 7.35 pH Units (7.32-7.45); ABG PO2 148 mmHg (85-104); ABG TCO2 22 mEq/L (20-26); Blood Gas Modality ASSIST CONTROL; Blood Gas VT 500 cc
[2022-04-30] MEDS ORDERED: Insulin LISPRO 300 UNITS/3 ML VIAL SUBQ SCH (18:00)
[2022-04-30] MEDS ORDERED: ACETYLCYSTEINE IVC ONE ×2 (18:44→20:00)
[2022-04-30] MEDS ORDERED: WATER IVC ONE ×2 (18:44→20:00)
[2022-04-30] MEDS ORDERED: D5 IVC ONE ×2 (18:44→20:00)
[2022-04-30] MEDS: Chlorhexidine Rinse 15 ML MOUTHWASH MM SCH (20:11)
[2022-04-30] MEDS ORDERED: Insulin DETEMIR 100 UNIT/ML X5UNITS SUBQ SCH (21:00)
[2022-04-30] MEDS: Albumin Human 5% 12.5 GM/250 ML IV.SOLN IVPB PRN (22:00)
[2022-05-01] MEDS: Norepinephrine 4 MG/254 ML IV.SOLN IVC SCH ×3 (00:22→17:41)
[2022-05-01] MEDS ORDERED: WATER IVC ONE (00:30)
[2022-05-01] MEDS ORDERED: D5 IVC ONE (00:30)
[2022-05-01] MEDS ORDERED: ACETYLCYSTEINE IVC ONE (00:30)
[2022-05-01] MEDS: PrismaSATE BGK 4/2.5 5,000 ML CRRT SCH ×10 (00:44→16:21)
[2022-05-01] MEDS: Artificial Tears SOLN 15 ML BOTTLE BOTH EYES SCH ×6 (00:52→20:18)
[2022-05-01] MEDS: Insulin LISPRO 300 UNITS/3 ML VIAL SUBQ SCH ×3 (00:53→07:54)
[2022-05-01 05:18] LABS: ABG Ionized Calcium 1.01 mmol/L (1.15-1.35)
[2022-05-01 05:18] LABS: ABG Base Excess 0 mEq/L (-2 to 3); ABG HCO3 25 mEq/L (21-27); ABG Oxygen Saturation 99 % (95-98); ABG PCO2 38 mmHg (35-45); ABG PH 7.42 pH Units (7.32-7.45); ABG PO2 119 mmHg (85-104); ABG TCO2 26 mEq/L (20-26); Blood Gas Modality ASSIST CONTROL; Blood Gas VT 500 cc
[2022-05-01 05:18] LABS: VBG Ionized Calcium 0.97 mmol/L (1.15-1.35)
[2022-05-01 05:22] LABS: Hematocrit 25.4 % (37.5-50.1); Hemoglobin 8.2 g/dL (12.9-16.9); Mean Corpuscular HGB Conc 32.3 g/dL (31.6-35.5); Mean Corpuscular Hemoglobin 27.6 pg (28.0-33.3); Mean Corpuscular Volume 85.5 fL (83.0-100.0); Mean Platelet Volume 12.8 fL (9.4-12.4); Platelet Count 177 K/mcL (140-400); Red Blood Count 2.97 M/mcL (4.19-5.50); Red Cell Distribution Width 16.5 % (11.5-14.5); White Blood Count 21.2 K/mcL (4.3-11.1)
[2022-05-01] MEDS: Gabapentin 400 MG CAPSULE PO SCH ×4 (07:55→21:52)
[2022-05-01] MEDS: clonazePAM 1 MG TABLET PO SCH ×4 (07:55→21:50)
[2022-05-01] MEDS: Aspirin Enteric Coated 81 MG Tablet PO SCH (07:55)
[2022-05-01] MEDS: FLUCONAZOLE 200 MG/5 ML PO SCH (07:55)
[2022-05-01] MEDS: Metoprolol XL (24 HR) Succ 50 MG TAB.ER.24H PO SCH (07:56)
[2022-05-01 08:10] LABS: VBG Ionized Calcium 0.98 mmol/L (1.15-1.35)
[2022-05-01] MEDS: Albumin Human 5% 12.5 GM/250 ML IV.SOLN IVPB PRN ×3 (08:32→12:32)
[2022-05-01] MEDS: Chlorhexidine Rinse 15 ML MOUTHWASH MM SCH ×2 (08:33→20:18)
[2022-05-01] MEDS: Pantoprazole 40 MG VIAL IVP SCH (08:33)
[2022-05-01] MEDS: Nicotine 21 MG PATCH.TD24 TD SCH ×2 (08:34→09:02)
[2022-05-01] MEDS: FentaNYL (PF) 1,000 MCG/100 ML IV.SOLN IVC SCH (08:47)
[2022-05-01 09:24] LABS: Alkaline Phosphatase 208 Units/L (34-104); BUN/Creatinine Ratio 30 (6-26); Bilirubin,Indirect 1.6 mg/dL (0.0-1.0); Bilirubin,Total 3.6 mg/dL (0.3-1.0); Blood Urea Nitrogen 19 mg/dL (6-20); Calcium 7.2 mg/dL (8.6-10.3); Carbon Dioxide 27 mEq/L (23-29); Chloride 103 mEq/L (98-107); Glucose 269 mg/dL (70-105); Magnesium 2.3 mg/dL (1.6-2.6); Osmolality,Calculated 292 (280-300); Potassium 4.3 mEq/L (3.5-5.1); Sodium 135 mEq/L (136-145)
[2022-05-01 09:25] LABS: Albumin 2.8 g/dL (3.5-5.7); Albumin/Globulin Ratio 1.6 (1.1-2.2); Globulin 1.7 g/dL (2.4-3.5); Total Protein 4.5 g/dL (6.4-8.9)
[2022-05-01] MEDS: Dexmedetomidine HCl 400 MCG/100 ML MLS IVC SCH ×3 (09:41→18:36)
[2022-05-01 10:11] LABS: Alanine Aminotransferase 2805 Units/L (7-52); Aspartate Amino Transferase > 3000 Units/L (13-39)
[2022-05-01 12:07] LABS: Basophils % 0.1 %; Hematocrit 22.6 % (37.5-50.1); Immature Granulocytes % 1.6 % (0-4); Lymphocytes # 0.9 K/mcL (0.6-4.6); Lymphocytes % 4.3 %; Mean Corpuscular HGB Conc 32.3 g/dL (31.6-35.5); Mean Corpuscular Volume 86.6 fL (83.0-100.0); Mean Platelet Volume 12.5 fL (9.4-12.4); Monocytes # 0.7 K/mcL (0.0-1.3); Monocytes % 3.2 %; Nucleated Red Blood Cells 0.8 /100 WBC (0); Platelet Count 148 K/mcL (140-400); Red Blood Count 2.61 M/mcL (4.19-5.50); Red Cell Distribution Width 16.6 % (11.5-14.5); Segmented Neutrophils % 90.8 %; White Blood Count 20.9 K/mcL (4.3-11.1)
[2022-05-01] MEDS: Heparin 25,000UNIT/250ML 1/2NS 25,000 UNIT/250 ML IV.SOLN IVC SCH (12:09)
[2022-05-01 12:11] LABS: Hemoglobin 7.3 g/dL (12.9-16.9)
[2022-05-01 12:14] LABS: VBG HCO3 28 mEq/L (21-27); VBG PCO2 48 mmHg (41-51); VBG PH 7.38 pH Units (7.32-7.42); VBG PO2 142 mmHg (25-50)
[2022-05-01 12:59] LABS: ABG Base Excess -5 mEq/L (-2 to 3); ABG Chloride 99 mEq/L (98-107); ABG Glucose 197 mg/dL (60-95); ABG HCO3 21 mEq/L (21-27); ABG Oxygen Saturation 100 % (95-98); ABG PCO2 39 mmHg (35-45); ABG PH 7.34 pH Units (7.32-7.45); ABG PO2 179 mmHg (85-104); ABG TCO2 22 mEq/L (20-26)
[2022-05-01] MEDS ORDERED: *HR* Heparin 5,000 UNIT/ML VIAL ONE (13:28)
[2022-05-01 14:26] LABS: Troponin I 3.99 ng/mL (< 0.04)
[2022-05-01 15:01] LABS: Lactate Dehydrogenase 3597 Units/L (140-271)
[2022-05-01] MEDS ORDERED: Calcium Gluconate 1gm/50mL 1 GM/50 ML BAG IVPB PRN (15:42)
[2022-05-01 15:52] LABS: ABG Base Excess 1 mEq/L (-2 to 3); ABG Chloride 100 mEq/L (98-107); ABG Glucose 139 mg/dL (60-95); ABG HCO3 26 mEq/L (21-27); ABG Ionized Calcium 1.01 mmol/L (1.15-1.35); ABG Oxygen Saturation 99 % (95-98); ABG PCO2 39 mmHg (35-45); ABG PH 7.43 pH Units (7.32-7.45); ABG PO2 135 mmHg (85-104); ABG TCO2 27 mEq/L (20-26)
[2022-05-01 15:57] LABS: Blood Gas VT 500 cc; Mixed Venous Blood pCO2 42 mmHg (44-46); Mixed Venous Blood pH 7.37 pH Units (7.34-7.36); Mixed Venous Blood pO2 31 mmHg (35-45)
[2022-05-01 16:05] LABS: Hematocrit 22.7 % (37.5-50.1); Hemoglobin 7.4 g/dL (12.9-16.9)
[2022-05-01] MEDS: Aspirin 81 MG TAB.CHEW PO SCH (16:41)
[2022-05-01] MEDS: cefTRIAXone 1,000 MG in 0.9 % Sodium Chloride 10 ML IVP SCH (17:40)
[2022-05-01 20:27] LABS: Hematocrit 23.3 % (37.5-50.1); Hemoglobin 7.5 g/dL (12.9-16.9)
[2022-05-01 20:36] LABS: Blood Gas VT 500 cc; Mixed Venous Blood pCO2 38 mmHg (44-46); Mixed Venous Blood pO2 27 mmHg (35-45)
[2022-05-01 20:42] LABS: ABG Base Excess 2 mEq/L (-2 to 3); ABG HCO3 26 mEq/L (21-27); ABG Oxygen Saturation 98 % (95-98); ABG PCO2 39 mmHg (35-45); ABG PH 7.43 pH Units (7.32-7.45); ABG PO2 106 mmHg (85-104); ABG TCO2 27 mEq/L (20-26); Blood Gas Modality AF; Blood Gas VT 500 cc
[2022-05-01] MEDS ORDERED: Heparin 1,000 UNITS/500 mL 500 ML ONE (21:10)
[2022-05-01] MEDS ORDERED: Furosemide 40 MG/4 ML VIAL IVP ONE (22:26)
[2022-05-01] MEDS: Milrinone Premix 20 MG/100 ML 20 MG/100 ML BAG IVC SCH (23:26)
[2022-05-02 00:41] LABS: Hematocrit 24.7 % (37.5-50.1); Hemoglobin 7.8 g/dL (12.9-16.9)
[2022-05-02] MEDS: FentaNYL (PF) 1,000 MCG/100 ML IV.SOLN IVC SCH ×3 (01:13→14:58)
[2022-05-02 03:06] LABS: Alanine Aminotransferase 2038 Units/L (7-52); Albumin 3.4 g/dL (3.5-5.7); Alkaline Phosphatase 206 Units/L (34-104); Aspartate Amino Transferase 1657 Units/L (13-39); BUN/Creatinine Ratio 23 (6-26); Bilirubin,Direct 1.4 mg/dL (0.0-0.2); Bilirubin,Indirect 1.2 mg/dL (0.0-1.0); Bilirubin,Total 2.6 mg/dL (0.3-1.0); Blood Urea Nitrogen 16 mg/dL (6-20); Calcium 7.9 mg/dL (8.6-10.3); Carbon Dioxide 28 mEq/L (23-29); Chloride 102 mEq/L (98-107); Globulin 1.7 g/dL (2.4-3.5); Glucose 167 mg/dL (70-105); Osmolality,Calculated 287 (280-300); Potassium 3.6 mEq/L (3.5-5.1); Sodium 136 mEq/L (136-145); Total Protein 5.1 g/dL (6.4-8.9)
[2022-05-02 03:46] LABS: ABG Base Excess 4 mEq/L (-2 to 3); ABG HCO3 27 mEq/L (21-27); ABG Oxygen Saturation 99 % (95-98); ABG PCO2 38 mmHg (35-45); ABG PH 7.47 pH Units (7.32-7.45); ABG PO2 130 mmHg (85-104); ABG TCO2 29 mEq/L (20-26); Blood Gas Modality AF; Blood Gas VT 500 cc
[2022-05-02 03:57] LABS: Blood Gas VT 500 cc; Mixed Venous Blood pCO2 36 mmHg (44-46); Mixed Venous Blood pH 7.42 pH Units (7.34-7.36); Mixed Venous Blood pO2 35 mmHg (35-45)
[2022-05-02] MEDS: Artificial Tears SOLN 15 ML BOTTLE BOTH EYES SCH ×6 (04:06→19:28)
[2022-05-02 04:37] LABS: Magnesium 2.2 mg/dL (1.6-2.6); Phosphorous 2.1 mg/dL (2.7-4.5)
[2022-05-02] MEDS: Dexmedetomidine HCl 400 MCG/100 ML MLS IVC SCH ×2 (05:22→14:14)
[2022-05-02] MEDS: Norepinephrine 4 MG/254 ML IV.SOLN IVC SCH (05:24)
[2022-05-02] MEDS ORDERED: Albumin Human 5% 12.5 GM/250 ML IV.SOLN IVPB ONE (05:35)
[2022-05-02 05:39] LABS: Hematocrit 23.3 % (37.5-50.1); Hemoglobin 7.5 g/dL (12.9-16.9); Immature Platelets 12.2 % (1.1-6.1); Mean Corpuscular HGB Conc 32.2 g/dL (31.6-35.5); Mean Corpuscular Hemoglobin 28.1 pg (28.0-33.3); Mean Corpuscular Volume 87.3 fL (83.0-100.0); Mean Platelet Volume 12.1 fL (9.4-12.4); Red Blood Count 2.67 M/mcL (4.19-5.50); Red Cell Distribution Width 17.2 % (11.5-14.5); White Blood Count 18.2 K/mcL (4.3-11.1)
[2022-05-02] MEDS: SODIUM BICARBONATE IVC SCH ×2 (08:07→15:47)
[2022-05-02] MEDS: WATER IVC SCH ×2 (08:07→15:47)
[2022-05-02] MEDS: D5 IVC SCH ×2 (08:07→15:47)
[2022-05-02] MEDS: Heparin 25,000UNIT/250ML 1/2NS 25,000 UNIT/250 ML IV.SOLN IVC SCH (08:09)
[2022-05-02 08:33] LABS: Mixed Venous Blood pCO2 46 mmHg (44-46); Mixed Venous Blood pH 7.36 pH Units (7.34-7.36); Mixed Venous Blood pO2 31 mmHg (35-45)
[2022-05-02 08:37] LABS: Blood Gas VT 500 cc
[2022-05-02 08:38] LABS: Blood Gas Modality AF
[2022-05-02] MEDS: Gabapentin 400 MG CAPSULE PO SCH ×3 (08:52→19:28)
[2022-05-02] MEDS: Aspirin 81 MG TAB.CHEW PO SCH (08:52)
[2022-05-02] MEDS: Nicotine 21 MG PATCH.TD24 TD SCH (08:52)
[2022-05-02] MEDS: Pantoprazole 40 MG VIAL IVP SCH (08:53)
[2022-05-02] MEDS: clonazePAM 1 MG TABLET PO SCH ×3 (08:53→19:28)
[2022-05-02] MEDS: Chlorhexidine Rinse 15 ML MOUTHWASH MM SCH ×2 (08:53→19:28)
[2022-05-02] MEDS: Metoprolol XL (24 HR) Succ 50 MG TAB.ER.24H PO SCH (09:20)
[2022-05-02 09:28] LABS: Hematocrit 20.9 % (37.5-50.1); Hemoglobin 6.7 g/dL (12.9-16.9)
[2022-05-02] MEDS ORDERED: 0.9 % Sodium Chloride 1,000 ML ONE (09:54)
[2022-05-02 10:50] LABS: ABG Base Excess 3 mEq/L (-2 to 3); ABG HCO3 27 mEq/L (21-27); ABG Oxygen Saturation 98 % (95-98); ABG PCO2 38 mmHg (35-45); ABG PH 7.46 pH Units (7.32-7.45); ABG PO2 104 mmHg (85-104); ABG TCO2 28 mEq/L (20-26); Blood Gas Modality AF; Blood Gas VT 500 cc
[2022-05-02 10:57] LABS: Blood Gas VT 500 cc; Mixed Venous Blood pCO2 41 mmHg (44-46); Mixed Venous Blood pH 7.46 pH Units (7.34-7.36); Mixed Venous Blood pO2 35 mmHg (35-45)
[2022-05-02] MEDS ORDERED: Potassium Phosphate 44 MEQ in 0.9 % Sodium Chloride 250 ML IVPB ONE (11:18)
[2022-05-02 16:15] LABS: Hematocrit 27.8 % (37.5-50.1); Hemoglobin 8.9 g/dL (12.9-16.9); Immature Platelets 11.7 % (1.1-6.1); Mean Corpuscular Hemoglobin 28.2 pg (28.0-33.3); Mean Platelet Volume 11.9 fL (9.4-12.4); Red Blood Count 3.16 M/mcL (4.19-5.50); Red Cell Distribution Width 15.8 % (11.5-14.5)
[2022-05-02] MEDS: cefTRIAXone 1,000 MG in 0.9 % Sodium Chloride 10 ML IVP SCH (16:55)
[2022-05-02 17:53] LABS: Mixed Venous Blood pCO2 44 mmHg (44-46); Mixed Venous Blood pH 7.39 pH Units (7.34-7.36); Mixed Venous Blood pO2 38 mmHg (35-45)
[2022-05-02 18:00] LABS: ABG Base Excess 1 mEq/L (-2 to 3); ABG HCO3 26 mEq/L (21-27); ABG Oxygen Saturation 98 % (95-98); ABG PCO2 41 mmHg (35-45); ABG PH 7.41 pH Units (7.32-7.45); ABG PO2 100 mmHg (85-104); ABG TCO2 27 mEq/L (20-26)
[2022-05-03 00:32] LABS: ABG Base Excess 2 mEq/L (-2 to 3); ABG HCO3 27 mEq/L (21-27); ABG Oxygen Saturation 97 % (95-98); ABG PCO2 43 mmHg (35-45); ABG PH 7.41 pH Units (7.32-7.45); ABG PO2 91 mmHg (85-104); ABG TCO2 28 mEq/L (20-26)
[2022-05-03 01:10] LABS: Mixed Venous Blood pCO2 43 mmHg (44-46); Mixed Venous Blood pH 7.38 pH Units (7.34-7.36); Mixed Venous Blood pO2 42 mmHg (35-45)
[2022-05-03 01:16] LABS: ABG Base Excess 2 mEq/L (-2 to 3); ABG HCO3 27 mEq/L (21-27); ABG Oxygen Saturation 96 % (95-98); ABG PCO2 45 mmHg (35-45); ABG PH 7.39 pH Units (7.32-7.45); ABG PO2 82 mmHg (85-104); ABG TCO2 29 mEq/L (20-26)
[2022-05-03] MEDS ORDERED: Furosemide 40 MG/4 ML VIAL IVP ONE (03:15)
[2022-05-03] MEDS ORDERED: *HR* LORazepam 2 MG/ML VIAL IVP ONE (03:30)
[2022-05-03 04:35] LABS: Mixed Venous Blood pCO2 43 mmHg (44-46); Mixed Venous Blood pH 7.44 pH Units (7.34-7.36); Mixed Venous Blood pO2 204 mmHg (35-45)
[2022-05-03 04:38] LABS: Hematocrit 31.5 % (37.5-50.1); Hemoglobin 10.2 g/dL (12.9-16.9); Mean Corpuscular HGB Conc 32.4 g/dL (31.6-35.5); Mean Corpuscular Hemoglobin 28.4 pg (28.0-33.3); Mean Corpuscular Volume 87.7 fL (83.0-100.0); Mean Platelet Volume 12.4 fL (9.4-12.4); Platelet Count 110 K/mcL (140-400); Red Blood Count 3.59 M/mcL (4.19-5.50); Red Cell Distribution Width 16.3 % (11.5-14.5); White Blood Count 15.3 K/mcL (4.3-11.1)
[2022-05-03 05:08] LABS: Alanine Aminotransferase 1593 Units/L (7-52); Albumin 3.7 g/dL (3.5-5.7); Albumin/Globulin Ratio 1.9 (1.1-2.2); Alkaline Phosphatase 213 Units/L (34-104); Aspartate Amino Transferase 947 Units/L (13-39); BUN/Creatinine Ratio 29 (6-26); Bilirubin,Direct 1.8 mg/dL (0.0-0.2); Bilirubin,Indirect 1.5 mg/dL (0.0-1.0); Bilirubin,Total 3.3 mg/dL (0.3-1.0); Blood Urea Nitrogen 16 mg/dL (6-20); Calcium 8.4 mg/dL (8.6-10.3); Carbon Dioxide 29 mEq/L (23-29); Chloride 103 mEq/L (98-107); Globulin 1.9 g/dL (2.4-3.5); Glucose 112 mg/dL (70-105); Magnesium 1.9 mg/dL (1.6-2.6); Osmolality,Calculated 286 (280-300); Potassium 3.6 mEq/L (3.5-5.1); Sodium 137 mEq/L (136-145); Total Protein 5.6 g/dL (6.4-8.9)
[2022-05-03] MEDS: Artificial Tears SOLN 15 ML BOTTLE BOTH EYES SCH ×6 (06:17→19:16)
[2022-05-03] MEDS ORDERED: *HR* FentaNYL (PF) 100 MCG/2 ML VIAL IVP PRN (07:36)
[2022-05-03 08:36] LABS: ABG Base Excess 6 mEq/L (-2 to 3); ABG HCO3 29 mEq/L (21-27); ABG Oxygen Saturation 97 % (95-98); ABG PCO2 37 mmHg (35-45); ABG PO2 79 mmHg (85-104); ABG TCO2 30 mEq/L (20-26)
[2022-05-03 08:44] LABS: VBG HCO3 29 mEq/L (21-27); VBG PCO2 44 mmHg (41-51); VBG PH 7.42 pH Units (7.32-7.42); VBG PO2 40 mmHg (25-50)
[2022-05-03] MEDS: Nicotine 21 MG PATCH.TD24 TD SCH (08:46)
[2022-05-03] MEDS: Pantoprazole 40 MG VIAL IVP SCH (08:46)
[2022-05-03 08:49] LABS: Creatinine,Urine 22 mg/dL; Microalbum/Creatinine Ratio,Ur 141 mcg/mg (Less than 30); Microalbumin,Urine 31 mg/L
[2022-05-03 09:41] LABS: Phosphorous 2.3 mg/dL (2.7-4.5)
[2022-05-03] MEDS: Chlorhexidine Rinse 15 ML MOUTHWASH MM SCH ×2 (09:55→19:16)
[2022-05-03] MEDS: WATER IVC SCH (10:00)
[2022-05-03] MEDS: SODIUM BICARBONATE IVC SCH (10:00)
[2022-05-03] MEDS: D5 IVC SCH (10:00)
[2022-05-03] MEDS ORDERED: Albumin 25% 25gram/100mL 25 GM/100 ML IV.SOLN IVPB ONE ×2 (10:55→11:00)
[2022-05-03] MEDS: Milrinone Premix 20 MG/100 ML 20 MG/100 ML BAG IVC SCH (11:06)
[2022-05-03] MEDS: Ringers Solution, Lactated 1,000 ML IVC SCH ×2 (12:40→19:16)
[2022-05-03] MEDS: Metoprolol XL (24 HR) Succ 50 MG TAB.ER.24H PO SCH (12:44)
[2022-05-03] MEDS: Aspirin 81 MG TAB.CHEW PO SCH (13:03)
[2022-05-03] MEDS: Gabapentin 400 MG CAPSULE PO SCH ×3 (13:03→19:24)
[2022-05-03] MEDS: clonazePAM 1 MG TABLET PO SCH ×3 (13:04→19:36)
[2022-05-03] MEDS: Heparin 25,000UNIT/250ML 1/2NS 25,000 UNIT/250 ML IV.SOLN IVC SCH (15:13)
[2022-05-03 15:57] LABS: VBG HCO3 30 mEq/L (21-27); VBG PCO2 47 mmHg (41-51); VBG PH 7.41 pH Units (7.32-7.42); VBG PO2 37 mmHg (25-50)
[2022-05-03 16:04] LABS: ABG Base Excess 3 mEq/L (-2 to 3); ABG HCO3 28 mEq/L (21-27); ABG Oxygen Saturation 98 % (95-98); ABG PCO2 43 mmHg (35-45); ABG PH 7.43 pH Units (7.32-7.45); ABG PO2 101 mmHg (85-104); ABG TCO2 30 mEq/L (20-26)
[2022-05-03] MEDS: cefTRIAXone 1,000 MG in 0.9 % Sodium Chloride 10 ML IVP SCH (16:35)
[2022-05-03] MEDS: Insulin LISPRO 300 UNITS/3 ML VIAL SUBQ SCH ×2 (16:37→19:39)
[2022-05-03] MEDS: Insulin DETEMIR 100 UNIT/ML X5UNITS SUBQ SCH (19:24)
[2022-05-03] MEDS: Dexmedetomidine HCl 400 MCG/100 ML MLS IVC SCH (21:00)
[2022-05-03 23:43] LABS: Mixed Venous Blood pCO2 52 mmHg (44-46); Mixed Venous Blood pH 7.38 pH Units (7.34-7.36); Mixed Venous Blood pO2 31 mmHg (35-45)
[2022-05-03] MEDS ORDERED: 0.9 % Sodium Chloride 500 ML ONE (23:44)
[2022-05-03 23:49] LABS: ABG Base Excess 5 mEq/L (-2 to 3); ABG HCO3 30 mEq/L (21-27); ABG Oxygen Saturation 97 % (95-98); ABG PCO2 48 mmHg (35-45); ABG PH 7.41 pH Units (7.32-7.45); ABG PO2 93 mmHg (85-104); ABG TCO2 32 mEq/L (20-26)
[2022-05-04] MEDS: Artificial Tears SOLN 15 ML BOTTLE BOTH EYES SCH ×6 (01:00→19:49)
[2022-05-04 04:22] LABS: Hematocrit 27.1 % (37.5-50.1); Hemoglobin 8.8 g/dL (12.9-16.9); Immature Platelets 10.4 % (1.1-6.1); Mean Corpuscular HGB Conc 32.5 g/dL (31.6-35.5); Mean Corpuscular Hemoglobin 28.8 pg (28.0-33.3); Mean Corpuscular Volume 88.6 fL (83.0-100.0); Mean Platelet Volume 11.9 fL (9.4-12.4); Red Blood Count 3.06 M/mcL (4.19-5.50); Red Cell Distribution Width 16.6 % (11.5-14.5); White Blood Count 8.2 K/mcL (4.3-11.1)
[2022-05-04 04:23] LABS: ABG Base Excess 6 mEq/L (-2 to 3); ABG HCO3 31 mEq/L (21-27); ABG Ionized Calcium 1.11 mmol/L (1.15-1.35); ABG Oxygen Saturation 100 % (95-98); ABG PCO2 47 mmHg (35-45); ABG PH 7.43 pH Units (7.32-7.45); ABG PO2 170 mmHg (85-104); ABG TCO2 33 mEq/L (20-26)
[2022-05-04] MEDS: Ipratropium/Albuterol Neb 3 ML IH PRN ×2 (04:38→20:28)
[2022-05-04 04:54] LABS: Alanine Aminotransferase 943 Units/L (7-52); Albumin 3.3 g/dL (3.5-5.7); Albumin/Globulin Ratio 2.1 (1.1-2.2); Alkaline Phosphatase 177 Units/L (34-104); Aspartate Amino Transferase 423 Units/L (13-39); BUN/Creatinine Ratio 34 (6-26); Bilirubin,Direct 2.3 mg/dL (0.0-0.2); Bilirubin,Indirect 1.9 mg/dL (0.0-1.0); Bilirubin,Total 4.2 mg/dL (0.3-1.0); Blood Urea Nitrogen 16 mg/dL (6-20); Calcium 8.4 mg/dL (8.6-10.3); Carbon Dioxide 32 mEq/L (23-29); Chloride 102 mEq/L (98-107); Globulin 1.6 g/dL (2.4-3.5); Glucose 137 mg/dL (70-105); Magnesium 1.7 mg/dL (1.6-2.6); Osmolality,Calculated 289 (280-300); Phosphorous 2.7 mg/dL (2.7-4.5); Potassium 3.7 mEq/L (3.5-5.1); Sodium 138 mEq/L (136-145); Total Protein 4.9 g/dL (6.4-8.9)
[2022-05-04] MEDS: Ringers Solution, Lactated 1,000 ML IVC SCH ×3 (06:17→19:48)
[2022-05-04] MEDS: *HR* OxyCODONE/APAP 10/325 TABLET PO PRN ×2 (06:38→19:00)
[2022-05-04 07:19] LABS: ABG Base Excess 4 mEq/L (-2 to 3); ABG HCO3 29 mEq/L (21-27); ABG Oxygen Saturation 96 % (95-98); ABG PCO2 45 mmHg (35-45); ABG PH 7.41 pH Units (7.32-7.45); ABG PO2 79 mmHg (85-104); ABG TCO2 30 mEq/L (20-26)
[2022-05-04 07:27] LABS: Mixed Venous Blood pCO2 47 mmHg (44-46); Mixed Venous Blood pH 7.41 pH Units (7.34-7.36); Mixed Venous Blood pO2 37 mmHg (35-45)
[2022-05-04] MEDS: Heparin 25,000UNIT/250ML 1/2NS 25,000 UNIT/250 ML IV.SOLN IVC SCH (07:36)
[2022-05-04] MEDS: Milrinone Premix 20 MG/100 ML 20 MG/100 ML BAG IVC SCH (07:37)
[2022-05-04] MEDS: Insulin LISPRO 300 UNITS/3 ML VIAL SUBQ SCH ×4 (07:59→19:43)
[2022-05-04] MEDS ORDERED: Albumin 25% 25gram/100mL 25 GM/100 ML IV.SOLN IVPB ONE (08:08)
[2022-05-04] MEDS: Nicotine 21 MG PATCH.TD24 TD SCH (09:37)
[2022-05-04] MEDS: Pantoprazole 40 MG VIAL IVP SCH (09:37)
[2022-05-04] MEDS: Gabapentin 400 MG CAPSULE PO SCH ×3 (09:38→19:30)
[2022-05-04] MEDS: Aspirin 81 MG TAB.CHEW PO SCH (09:38)
[2022-05-04] MEDS: clonazePAM 1 MG TABLET PO SCH ×3 (09:38→19:30)
[2022-05-04] MEDS: Chlorhexidine Rinse 15 ML MOUTHWASH MM SCH ×2 (11:11→19:31)
[2022-05-04] MEDS: Norepinephrine 4 MG/254 ML IV.SOLN IVC SCH (11:12)
[2022-05-04 12:23] LABS: ABG Ionized Calcium 1.14 mmol/L (1.15-1.35)
[2022-05-04 12:34] LABS: Mixed Venous Blood pCO2 45 mmHg (44-46); Mixed Venous Blood pH 7.43 pH Units (7.34-7.36); Mixed Venous Blood pO2 175 mmHg (35-45)
[2022-05-04] MEDS: Metoprolol XL (24 HR) Succ 50 MG TAB.ER.24H PO SCH ×2 (13:21→15:45)
[2022-05-04 14:43] LABS: ABG Base Excess 4 mEq/L (-2 to 3); ABG HCO3 29 mEq/L (21-27); ABG Oxygen Saturation 91 % (95-98); ABG PCO2 45 mmHg (35-45); ABG PH 7.41 pH Units (7.32-7.45); ABG PO2 62 mmHg (85-104); ABG TCO2 30 mEq/L (20-26)
[2022-05-04 14:49] LABS: VBG HCO3 28 mEq/L (21-27); VBG PCO2 48 mmHg (41-51); VBG PH 7.38 pH Units (7.32-7.42); VBG PO2 34 mmHg (25-50)
[2022-05-04] MEDS: cefTRIAXone 1,000 MG in 0.9 % Sodium Chloride 10 ML IVP SCH (17:08)
[2022-05-04] MEDS: FentaNYL (PF) 1,000 MCG/100 ML IV.SOLN IVC SCH (17:17)
[2022-05-04] MEDS: Bumetanide 1 MG/4 ML VIAL IVP SCH (18:51)
[2022-05-04] MEDS: Insulin DETEMIR 100 UNIT/ML X5UNITS SUBQ SCH (19:48)
[2022-05-04 21:50] LABS: ABG Base Excess 6 mEq/L (-2 to 3); ABG HCO3 31 mEq/L (21-27); ABG Oxygen Saturation 97 % (95-98); ABG PCO2 46 mmHg (35-45); ABG PH 7.44 pH Units (7.32-7.45); ABG PO2 87 mmHg (85-104); ABG TCO2 33 mEq/L (20-26)
[2022-05-04 21:57] LABS: Mixed Venous Blood pCO2 49 mmHg (44-46); Mixed Venous Blood pH 7.43 pH Units (7.34-7.36); Mixed Venous Blood pO2 37 mmHg (35-45)
[2022-05-05] MEDS: Ringers Solution, Lactated 1,000 ML IVC SCH ×2 (02:14→11:11)
[2022-05-05] MEDS: Artificial Tears SOLN 15 ML BOTTLE BOTH EYES SCH ×2 (02:14→05:58)
[2022-05-05 04:12] LABS: Hematocrit 25.6 % (37.5-50.1); Hemoglobin 8.1 g/dL (12.9-16.9); Mean Corpuscular HGB Conc 31.6 g/dL (31.6-35.5); Mean Corpuscular Volume 88.6 fL (83.0-100.0); Mean Platelet Volume 12.7 fL (9.4-12.4); Platelet Count 61 K/mcL (140-400); Red Blood Count 2.89 M/mcL (4.19-5.50); Red Cell Distribution Width 17.3 % (11.5-14.5); White Blood Count 7.5 K/mcL (4.3-11.1)
[2022-05-05 04:15] LABS: ABG Ionized Calcium 1.12 mmol/L (1.15-1.35)
[2022-05-05 04:44] LABS: Alanine Aminotransferase 627 Units/L (7-52); Albumin 3.4 g/dL (3.5-5.7); Albumin/Globulin Ratio 2.6 (1.1-2.2); Alkaline Phosphatase 162 Units/L (34-104); Aspartate Amino Transferase 210 Units/L (13-39); BUN/Creatinine Ratio 27 (6-26); Bilirubin,Indirect 1.6 mg/dL (0.0-1.0); Bilirubin,Total 3.6 mg/dL (0.3-1.0); Blood Urea Nitrogen 13 mg/dL (6-20); Calcium 8.2 mg/dL (8.6-10.3); Carbon Dioxide 35 mEq/L (23-29); Chloride 97 mEq/L (98-107); Globulin 1.3 g/dL (2.4-3.5); Glucose 219 mg/dL (70-105); Magnesium 1.7 mg/dL (1.6-2.6); Osmolality,Calculated 289 (280-300); Phosphorous 3.6 mg/dL (2.7-4.5); Potassium 3.4 mEq/L (3.5-5.1); Sodium 136 mEq/L (136-145); Total Protein 4.7 g/dL (6.4-8.9)
[2022-05-05 05:51] LABS: ABG Base Excess 5 mEq/L (-2 to 3); ABG HCO3 29 mEq/L (21-27); ABG Oxygen Saturation 98 % (95-98); ABG PCO2 43 mmHg (35-45); ABG PH 7.44 pH Units (7.32-7.45); ABG PO2 100 mmHg (85-104); ABG TCO2 31 mEq/L (20-26)
[2022-05-05] MEDS: Milrinone Premix 20 MG/100 ML 20 MG/100 ML BAG IVC SCH ×2 (07:27→12:06)
[2022-05-05] MEDS: SODIUM BICARBONATE IVC SCH ×2 (07:27→15:20)
[2022-05-05] MEDS: WATER IVC SCH ×2 (07:27→15:20)
[2022-05-05] MEDS: D5 IVC SCH ×2 (07:27→15:20)
[2022-05-05] MEDS: Heparin 25,000UNIT/250ML 1/2NS 25,000 UNIT/250 ML IV.SOLN IVC SCH ×2 (07:27→16:49)
[2022-05-05] MEDS: clonazePAM 1 MG TABLET PO SCH ×4 (07:28→19:40)
[2022-05-05] MEDS: Metoprolol XL (24 HR) Succ 50 MG TAB.ER.24H PO SCH (07:28)
[2022-05-05] MEDS: Aspirin 81 MG TAB.CHEW PO SCH (07:28)
[2022-05-05] MEDS: Bumetanide 1 MG/4 ML VIAL IVP SCH (07:28)
[2022-05-05] MEDS: Pantoprazole 40 MG VIAL IVP SCH (07:29)
[2022-05-05] MEDS: Gabapentin 400 MG CAPSULE PO SCH ×4 (07:29→19:40)
[2022-05-05] MEDS: Nicotine 21 MG PATCH.TD24 TD SCH ×2 (07:29→07:42)
[2022-05-05] MEDS: Norepinephrine 4 MG/254 ML IV.SOLN IVC SCH (07:30)
[2022-05-05] MEDS ORDERED: CeFAZolin Syr 2,000MG/20 ML 2,000 MG/20 ML SYRINGE IVPB ONE (07:30)
[2022-05-05] MEDS: Dexmedetomidine HCl 400 MCG/100 ML MLS IVC SCH ×2 (07:41→23:03)
[2022-05-05] MEDS: Insulin LISPRO 300 UNITS/3 ML VIAL SUBQ SCH ×4 (07:59→19:50)
[2022-05-05] MEDS ORDERED: Albumin Human 5% 12.5 GM/250 ML IV.SOLN ONE (09:25)
[2022-05-05] MEDS: Albumin Human 5% 12.5 GM/250 ML IV.SOLN IVPB ONE ×2 (09:32→10:17)
[2022-05-05] MEDS ORDERED: Albumin Human 5% 12.5 GM/250 ML IV.SOLN IVPB ONE (10:16)
[2022-05-05 10:56] LABS: ABG Base Excess 8 mEq/L (-2 to 3); ABG HCO3 33 mEq/L (21-27); ABG Oxygen Saturation 97 % (95-98); ABG PCO2 45 mmHg (35-45); ABG PH 7.47 pH Units (7.32-7.45); ABG PO2 90 mmHg (85-104); ABG TCO2 34 mEq/L (20-26)
[2022-05-05] MEDS ORDERED: 0.9 % Sodium Chloride 1,000 ML ONE (10:58)
[2022-05-05 11:00] LABS: Mixed Venous Blood pCO2 39 mmHg (44-46); Mixed Venous Blood pH 7.53 pH Units (7.34-7.36); Mixed Venous Blood pO2 172 mmHg (35-45)
[2022-05-05 11:06] LABS: Mixed Venous Blood pCO2 45 mmHg (44-46); Mixed Venous Blood pH 7.43 pH Units (7.34-7.36); Mixed Venous Blood pO2 38 mmHg (35-45)
[2022-05-05] MEDS: Insulin DETEMIR 100 UNIT/ML X5UNITS SUBQ SCH ×2 (13:02→19:59)
[2022-05-05] MEDS ORDERED: *HR* Heparin 5,000 UNIT/ML VIAL ONE (14:20)
[2022-05-05] MEDS ORDERED: *HR* Heparin 5,000 UNIT/ML VIAL IVP ONE (14:30)
[2022-05-05] MEDS: *HR* OxyCODONE/APAP 10/325 TABLET PO PRN (16:06)
[2022-05-05 18:21] LABS: ABG Base Excess 9 mEq/L (-2 to 3); ABG Chloride 98 mEq/L (98-107); ABG Glucose 161 mg/dL (60-95); ABG HCO3 34 mEq/L (21-27); ABG Ionized Calcium 1.14 mmol/L (1.15-1.35); ABG Oxygen Saturation 93 % (95-98); ABG PCO2 54 mmHg (35-45); ABG PH 7.41 pH Units (7.32-7.45); ABG PO2 69 mmHg (85-104); ABG TCO2 36 mEq/L (20-26)
[2022-05-05 18:28] LABS: Mixed Venous Blood pCO2 49 mmHg (44-46); Mixed Venous Blood pH 7.43 pH Units (7.34-7.36); Mixed Venous Blood pO2 39 mmHg (35-45)
[2022-05-06 02:12] LABS: Mixed Venous Blood pCO2 50 mmHg (44-46); Mixed Venous Blood pO2 36 mmHg (35-45)
[2022-05-06 02:17] LABS: ABG Base Excess 7 mEq/L (-2 to 3); ABG HCO3 33 mEq/L (21-27); ABG Oxygen Saturation 96 % (95-98); ABG PCO2 51 mmHg (35-45); ABG PH 7.41 pH Units (7.32-7.45); ABG PO2 83 mmHg (85-104); ABG TCO2 34 mEq/L (20-26)
[2022-05-06 04:02] LABS: Basophils % 0.1 %; Hemoglobin 8.4 g/dL (12.9-16.9)
[2022-05-06 04:03] LABS: Eosinophils # 0.3 K/mcL (0.0-0.6); Eosinophils % 3.4 %; Hematocrit 26.1 % (37.5-50.1); Immature Granulocytes % 0.8 % (0-4); Immature Platelets 12.6 % (1.1-6.1); Lymphocytes # 1.4 K/mcL (0.6-4.6); Lymphocytes % 17.5 %; Mean Corpuscular HGB Conc 32.2 g/dL (31.6-35.5); Mean Corpuscular Hemoglobin 28.6 pg (28.0-33.3); Mean Corpuscular Volume 88.8 fL (83.0-100.0); Mean Platelet Volume 12.2 fL (9.4-12.4); Monocytes # 0.7 K/mcL (0.0-1.3); Monocytes % 8.9 %; Neutrophils # 5.5 K/mcL (1.6-8.9); Platelet Count 50 K/mcL (140-400); Red Blood Count 2.94 M/mcL (4.19-5.50); Red Cell Distribution Width 17.5 % (11.5-14.5); Segmented Neutrophils % 69.3 %; White Blood Count 7.9 K/mcL (4.3-11.1)
[2022-05-06 04:07] LABS: VBG Ionized Calcium 1.14 mmol/L (1.15-1.35)
[2022-05-06 04:21] LABS: Alanine Aminotransferase 419 Units/L (7-52); Albumin 3.5 g/dL (3.5-5.7); Albumin/Globulin Ratio 1.8 (1.1-2.2); Alkaline Phosphatase 154 Units/L (34-104); Aspartate Amino Transferase 112 Units/L (13-39); BUN/Creatinine Ratio 28 (6-26); Bilirubin,Direct 1.4 mg/dL (0.0-0.2); Bilirubin,Indirect 1.8 mg/dL (0.0-1.0); Bilirubin,Total 3.2 mg/dL (0.3-1.0); Blood Urea Nitrogen 12 mg/dL (6-20); Carbon Dioxide 34 mEq/L (23-29); Chloride 99 mEq/L (98-107); Globulin 1.9 g/dL (2.4-3.5); Glucose 214 mg/dL (70-105); Magnesium 1.9 mg/dL (1.6-2.6); Osmolality,Calculated 292 (280-300); Phosphorous 3.6 mg/dL (2.7-4.5); Potassium 3.9 mEq/L (3.5-5.1); Sodium 138 mEq/L (136-145); Total Protein 5.4 g/dL (6.4-8.9)
[2022-05-06] MEDS: Dexmedetomidine HCl 400 MCG/100 ML MLS IVC SCH ×2 (04:41→11:54)
[2022-05-06] MEDS: Gabapentin 400 MG CAPSULE PO SCH ×3 (07:17→20:42)
[2022-05-06] MEDS: Nicotine 21 MG PATCH.TD24 TD SCH (07:17)
[2022-05-06] MEDS: clonazePAM 1 MG TABLET PO SCH ×3 (07:17→20:42)
[2022-05-06] MEDS: Pantoprazole 40 MG VIAL IVP SCH (07:17)
[2022-05-06] MEDS: Aspirin 81 MG TAB.CHEW PO SCH (07:17)
[2022-05-06] MEDS: Insulin DETEMIR 100 UNIT/ML X5UNITS SUBQ SCH ×2 (07:19→20:41)
[2022-05-06] MEDS: Insulin LISPRO 300 UNITS/3 ML VIAL SUBQ SCH ×4 (07:35→20:42)
[2022-05-06] MEDS ORDERED: Vancomycin 1,000 MG, Sodium Chloride IRRigation 1,000 ML IR ONE (07:45)
[2022-05-06] MEDS: Calcium Gluconate 1gm/50mL 1 GM/50 ML BAG IVPB SCH ×2 (07:49→08:32)
[2022-05-06] MEDS ORDERED: *HR* Midazolam HCl 5 MG/5 ML VIAL IVP ONE (08:39)
[2022-05-06] MEDS ORDERED: *HR* Propofol 200 MG/20 ML VIAL IVP ONE (08:39)
[2022-05-06] MEDS ORDERED: *HR* FentaNYL (PF) 250 MCG/5 ML VIAL ONE (08:39)
[2022-05-06] MEDS ORDERED: Lidocaine/EPI 1:100k 1% 10 ML Vial ONE (08:47)
[2022-05-06] MEDS: Milrinone Premix 20 MG/100 ML 20 MG/100 ML BAG IVC SCH ×2 (10:02→11:56)
[2022-05-06 10:31] LABS: ABG Base Excess 8 mEq/L (-2 to 3); ABG HCO3 34 mEq/L (21-27); ABG Oxygen Saturation 98 % (95-98); ABG PCO2 56 mmHg (35-45); ABG PH 7.39 pH Units (7.32-7.45); ABG PO2 101 mmHg (85-104); ABG TCO2 36 mEq/L (20-26)
[2022-05-06] MEDS ORDERED: Albumin Human 5% 12.5 GM/250 ML IV.SOLN IVPB ONE ×2 (10:48→16:25)
[2022-05-06] MEDS ORDERED: Albumin Human 5% 12.5 GM/250 ML IV.SOLN ONE (10:50)
[2022-05-06] MEDS ORDERED: Norepinephrine 4 MG/254 ML IV.SOLN IVC ONE (11:24)
[2022-05-06] MEDS: Norepinephrine 4 MG/254 ML IV.SOLN IVC SCH (11:30)
[2022-05-06] MEDS: *HR* OxyCODONE/APAP 10/325 TABLET PO PRN (21:04)
[2022-05-07] MEDS: Norepinephrine 4 MG/254 ML IV.SOLN IVC SCH ×2 (00:37→20:04)
[2022-05-07 03:34] LABS: VBG Ionized Calcium 1.17 mmol/L (1.15-1.35)
[2022-05-07 03:42] LABS: Red Cell Distribution Width 17.2 % (11.5-14.5)
[2022-05-07 03:44] LABS: Basophils % 0.1 %; Eosinophils # 0.3 K/mcL (0.0-0.6); Hematocrit 25.6 % (37.5-50.1); Immature Granulocytes % 1.2 % (0-4); Lymphocytes # 1.4 K/mcL (0.6-4.6); Lymphocytes % 14.5 %; Mean Corpuscular HGB Conc 31.3 g/dL (31.6-35.5); Mean Corpuscular Hemoglobin 28.1 pg (28.0-33.3); Mean Corpuscular Volume 89.8 fL (83.0-100.0); Mean Platelet Volume 13.2 fL (9.4-12.4); Monocytes # 0.8 K/mcL (0.0-1.3); Monocytes % 8.2 %; Neutrophils # 6.9 K/mcL (1.6-8.9); Red Blood Count 2.85 M/mcL (4.19-5.50); White Blood Count 9.4 K/mcL (4.3-11.1)
[2022-05-07 03:52] LABS: Platelet Count 53 K/mcL (140-400)
[2022-05-07 04:03] LABS: Alanine Aminotransferase 269 Units/L (7-52); Albumin 3.8 g/dL (3.5-5.7); Albumin/Globulin Ratio 2.2 (1.1-2.2); Alkaline Phosphatase 152 Units/L (34-104); Aspartate Amino Transferase 65 Units/L (13-39); BUN/Creatinine Ratio 33 (6-26); Bilirubin,Direct 0.9 mg/dL (0.0-0.2); Bilirubin,Indirect 1.4 mg/dL (0.0-1.0); Bilirubin,Total 2.3 mg/dL (0.3-1.0); Blood Urea Nitrogen 15 mg/dL (6-20); Calcium 9.1 mg/dL (8.6-10.3); Carbon Dioxide 30 mEq/L (23-29); Chloride 102 mEq/L (98-107); Globulin 1.7 g/dL (2.4-3.5); Glucose 190 mg/dL (70-105); Magnesium 1.7 mg/dL (1.6-2.6); Osmolality,Calculated 292 (280-300); Phosphorous 4.1 mg/dL (2.7-4.5); Sodium 138 mEq/L (136-145); Total Protein 5.5 g/dL (6.4-8.9)
[2022-05-07 07:35] LABS: Mixed Venous Blood pCO2 46 mmHg (44-46); Mixed Venous Blood pH 7.41 pH Units (7.34-7.36); Mixed Venous Blood pO2 35 mmHg (35-45)
[2022-05-07] MEDS: Insulin LISPRO 300 UNITS/3 ML VIAL SUBQ SCH ×4 (08:10→20:04)
[2022-05-07] MEDS: Insulin DETEMIR 100 UNIT/ML X5UNITS SUBQ SCH ×2 (08:10→20:05)
[2022-05-07] MEDS: Aspirin 81 MG TAB.CHEW PO SCH (08:11)
[2022-05-07] MEDS: Pantoprazole 40 MG VIAL IVP SCH (08:11)
[2022-05-07] MEDS: clonazePAM 1 MG TABLET PO SCH ×3 (08:11→21:13)
[2022-05-07] MEDS: Gabapentin 400 MG CAPSULE PO SCH ×3 (08:11→20:30)
[2022-05-07] MEDS: Nicotine 21 MG PATCH.TD24 TD SCH (08:12)
[2022-05-07] MEDS: Dexmedetomidine HCl 400 MCG/100 ML MLS IVC SCH (08:26)
[2022-05-07] MEDS: Levothyroxine 25 MCG TABLET PO SCH (12:13)
[2022-05-07] MEDS ORDERED: 0.9 % Sodium Chloride 250 ML IVC ONE (14:50)
[2022-05-07 16:22] LABS: Mixed Venous Blood pCO2 41 mmHg (44-46); Mixed Venous Blood pH 7.41 pH Units (7.34-7.36); Mixed Venous Blood pO2 33 mmHg (35-45)
[2022-05-07] MEDS: *HR* OxyCODONE/APAP 10/325 TABLET PO PRN (21:13)
[2022-05-08 04:41] LABS: Basophils % 0.1 %; Hemoglobin 7.8 g/dL (12.9-16.9); Immature Granulocytes % 0.7 % (0-4)
[2022-05-08 04:43] LABS: Eosinophils # 0.2 K/mcL (0.0-0.6); Eosinophils % 2.2 %; Hematocrit 24.7 % (37.5-50.1); Immature Platelets 11.3 % (1.1-6.1); Lymphocytes # 1.3 K/mcL (0.6-4.6); Mean Corpuscular HGB Conc 31.6 g/dL (31.6-35.5); Mean Corpuscular Hemoglobin 28.8 pg (28.0-33.3); Mean Corpuscular Volume 91.1 fL (83.0-100.0); Mean Platelet Volume 11.8 fL (9.4-12.4); Monocytes # 0.8 K/mcL (0.0-1.3); Monocytes % 7.9 %; Neutrophils # 7.2 K/mcL (1.6-8.9); Red Blood Count 2.71 M/mcL (4.19-5.50); Red Cell Distribution Width 17.9 % (11.5-14.5); Segmented Neutrophils % 75.1 %; White Blood Count 9.6 K/mcL (4.3-11.1)
[2022-05-08 04:46] LABS: VBG Ionized Calcium 1.13 mmol/L (1.15-1.35)
[2022-05-08 04:56] LABS: Platelet Count 73 K/mcL (140-400)
[2022-05-08 05:04] LABS: Alanine Aminotransferase 196 Units/L (7-52); Albumin 3.6 g/dL (3.5-5.7); Albumin/Globulin Ratio 1.9 (1.1-2.2); Alkaline Phosphatase 142 Units/L (34-104); Aspartate Amino Transferase 45 Units/L (13-39); BUN/Creatinine Ratio 25 (6-26); Bilirubin,Direct 0.5 mg/dL (0.0-0.2); Bilirubin,Indirect 1.3 mg/dL (0.0-1.0); Bilirubin,Total 1.8 mg/dL (0.3-1.0); Blood Urea Nitrogen 13 mg/dL (6-20); Calcium 8.5 mg/dL (8.6-10.3); Carbon Dioxide 31 mEq/L (23-29); Chloride 100 mEq/L (98-107); Globulin 1.9 g/dL (2.4-3.5); Glucose 199 mg/dL (70-105); Magnesium 1.4 mg/dL (1.6-2.6); Osmolality,Calculated 286 (280-300); Phosphorous 4.3 mg/dL (2.7-4.5); Potassium 3.8 mEq/L (3.5-5.1); Sodium 135 mEq/L (136-145); Total Protein 5.5 g/dL (6.4-8.9)
[2022-05-08 05:16] LABS: Thyroid Stimulating Hormone 5.047 mcIU/mL (0.340-5.600)
[2022-05-08] MEDS: Gabapentin 400 MG CAPSULE PO SCH ×3 (07:46→22:07)
[2022-05-08] MEDS: clonazePAM 1 MG TABLET PO SCH ×3 (07:46→22:07)
[2022-05-08] MEDS: Levothyroxine 25 MCG TABLET PO SCH (07:46)
[2022-05-08] MEDS: Aspirin 81 MG TAB.CHEW PO SCH (07:46)
[2022-05-08] MEDS: Nicotine 21 MG PATCH.TD24 TD SCH (07:47)
[2022-05-08] MEDS: Insulin LISPRO 300 UNITS/3 ML VIAL SUBQ SCH ×4 (07:55→22:08)
[2022-05-08] MEDS: Insulin DETEMIR 100 UNIT/ML X5UNITS SUBQ SCH ×2 (07:55→22:07)
[2022-05-08] MEDS: Norepinephrine 4 MG/254 ML IV.SOLN IVC SCH (08:03)
[2022-05-08] MEDS: *HR* OxyCODONE/APAP 10/325 TABLET PO PRN ×2 (08:41→15:23)
[2022-05-08] MEDS: Ipratropium/Albuterol Neb 3 ML IH PRN (09:05)
[2022-05-08] MEDS ORDERED: Furosemide 20 MG/2 ML VIAL IVP ONE (11:33)
[2022-05-08] MEDS ORDERED: 0.9 % Sodium Chloride 250 ML ONE (12:12)
[2022-05-09 04:58] LABS: VBG Ionized Calcium 1.22 mmol/L (1.15-1.35)
[2022-05-09 05:19] LABS: Basophils % 0.1 %; Eosinophils # 0.2 K/mcL (0.0-0.6); Eosinophils % 1.6 %; Hematocrit 29.6 % (37.5-50.1); Immature Granulocytes % 0.7 % (0-4); Lymphocytes # 1.5 K/mcL (0.6-4.6); Mean Corpuscular HGB Conc 32.1 g/dL (31.6-35.5); Mean Corpuscular Hemoglobin 29.2 pg (28.0-33.3); Mean Corpuscular Volume 91.1 fL (83.0-100.0); Mean Platelet Volume 11.2 fL (9.4-12.4); Monocytes # 1.1 K/mcL (0.0-1.3); Monocytes % 10.1 %; Platelet Count 121 K/mcL (140-400); Red Blood Count 3.25 M/mcL (4.19-5.50); Red Cell Distribution Width 17.6 % (11.5-14.5); Segmented Neutrophils % 73.5 %; White Blood Count 10.9 K/mcL (4.3-11.1)
[2022-05-09 05:38] LABS: Alanine Aminotransferase 169 Units/L (7-52); Albumin 3.9 g/dL (3.5-5.7); Albumin/Globulin Ratio 1.6 (1.1-2.2); Alkaline Phosphatase 145 Units/L (34-104); Aspartate Amino Transferase 39 Units/L (13-39); BUN/Creatinine Ratio 23 (6-26); Bilirubin,Direct 0.8 mg/dL (0.0-0.2); Bilirubin,Indirect 1.4 mg/dL (0.0-1.0); Bilirubin,Total 2.2 mg/dL (0.3-1.0); Blood Urea Nitrogen 11 mg/dL (6-20); Calcium 9.5 mg/dL (8.6-10.3); Carbon Dioxide 29 mEq/L (23-29); Chloride 99 mEq/L (98-107); Globulin 2.4 g/dL (2.4-3.5); Glucose 159 mg/dL (70-105); Magnesium 1.8 mg/dL (1.6-2.6); Osmolality,Calculated 287 (280-300); Phosphorous 4.3 mg/dL (2.7-4.5); Sodium 137 mEq/L (136-145); Total Protein 6.3 g/dL (6.4-8.9)
[2022-05-09 06:26] LABS: Hemoglobin 9.5 g/dL (12.9-16.9)
[2022-05-09 07:17] VITALS: BP 149/66; PULSE 97; TEMP 97.9; O2SAT 100
[2022-05-09] MEDS ORDERED: Metoprolol XL (24 HR) Succ 25 MG TAB.ER.24H PO SCH (09:00)
[2022-05-09] MEDS ORDERED: lisinopriL 5 MG TABLET PO SCH (09:00)
[2022-05-09] MEDS ORDERED: Spironolactone 12.5 MG TABLET PO SCH (09:00)
== END 2022-05-09 10:00 | disposition hospice, home (50) | DRG 215 ==
LOC: EMEROOARM 10:54 → 2NNU 10:54 → SUATTDRO 15:32 → ICNU 04-29 15:53 → 2NNU 05-08 20:35
PROVIDERS: ADMIT Hospitalist; ATTEND Internal Medicine